=== PATIENT | male | born 1955 | race Caucasian/White ===

== ENCOUNTER 2020-09-22 09:07 | Outpatient (CLI) | payer MEDICARE, SELFPAY ==
[2020-09-22 09:32] VITALS: BMI 24.5
--- NOTE | 2020-09-22 09:36 | ECG_ITS ---
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 Interpretive Statements NAME OF STUDY: LEXISCAN SESTAMIBI STRESS TEST INDICATION: Chest Pain PROCEDURE: At the baseline, the blood pressure was 151/74 mmHg, oxygen saturation 97% with a heart rate of 54 bpm. The electrocardiogram showed sinus bradycardia with sinus arrhythmia. Leftward axis with normal ST and T's. The Lexiscan was infused over a period of 20 seconds. A total of 0.4 milligrams of Lexiscan was infused. The stress phase was continued for a total of 5 minutes. Heart rate at the end of the stress phase was 78 bpm, oxygen saturation 98% with a blood pressure of 145/72 mmHg. The EKG at the peak infusion revealed sinus rhythm with no significant ST-T wave changes. Isolated PACs noted during exercise. The study was terminated due to protocol completion. Sestamibi was injected 20 seconds after the Lexiscan infusion. Blood pressure at the end of the recovery phase was 111/64 mmHg, oxygen saturation 98% with a heart rate of 77 beats per minute. CONCLUSION: 1. No significant EKG changes with the LexiScan infusion. 2. No LexiScan induced chest pain or cardiac arrhythmia. 3. Normal blood pressure and heart rate response. 4. Sestamibi/sestamibi perfusion scan pending; see separate report. Electronically Signed On 09-24-2020 18:38:32 CDT by Michelle Graves M.D. [id number]
--- NOTE | 2020-09-22 09:36 | NMCV_ITS ---
NM akash perf SPECT r/s* [id number] Kareem Morrissey Age: 65 Gender: M : 1955 Exam Date: 09/22/2020 10:37 Ordering Phys: Michelle Graves MD ([email or web address]) Technologist: JOHN Gibson Exam Location: [facility] Indications: CHEST PAIN STRESS TEST Please see separate stress test report in [facility] for full findings IMAGE PROTOCOL Rest/Stress 1 Lexiscan Day Radiopharmaceutical Dose (mCi) Administration Site Administered by Rest: Tc-99m 11.0 IV JOHN Vaughn Sestamibi Stress:Tc-99m 32.7 IV JOHN Vaughn Sestamibi Rest: 22-Sep-2020 60 Discovery 630 Stress: 22-Sep-2020 30 Discovery 630 0.4mg Lexiscan. Images obtained in supine and prone position. SPECT RESULTS Technical Quality: Excellent Raw Data Analysis: Normal Image Corrections: No attenuation or motion correction applied Summed Stress Score: 0 Summed Rest Score: 0 Summed Difference Score: 0 PERFUSION FINDINGS Small sized perfusion abnormality of mild severity of apical inferior wall on rest images with improved tracer uptake on stress images. This is suggestive of attenuation artifact. FUNCTIONAL RESULTS (calculated via Gated SPECT) Stress Image LV EF (%): 72 Stress EDV (mL):106 TID: 1 Stress ESV (mL):30 FUNCTIONAL FINDINGS: The left ventricle is normal in size. Transient Ischemia Dilatation of 1. There is normal left ventricular systolic function. The left ventricular ejection fraction is normal with a value of 72%. There is normal left ventricular wall thickening with no regional wall motion abnormality. Normal end diastolic and end systolic volumes. IMPRESSIONS 1. Myocardial perfusion imaging is normal. 2. Overall left ventricular systolic function is normal without regional wall motion abnormalities. 3. The left ventricular ejection fraction is normal with a value of 72%. 4. No EKG changes suggetive of ischemia with lexiscan infusion. Please refer to separate report for details. 5. No prior similar studies to compare. Michelle Graves MD (Electronically Signed) Final Date: 27 September 2020 12:15 S
--- NOTE | 2020-09-22 10:42 | USCV_ITS ---
Ghanshyam, Kareem Age: 65 Gender: M : 1955 Exam Date: 09/22/2020 10:24 Ordering Phys: Michelle Graves MD Technologist: Exam Location: [facility] Indication: PVD Risk Factors: Previous Vascular Surgery: RIGHT LEFT BP: 120.0 / 80.00 BP: 120.0/ 80.00 0 0 Waveform Velocity (cm/s) Velocity (cm/s) Waveform Triphasic 70.5 Iliac Prox 60.8 Triphasic Triphasic 68.2 Iliac Mid 67.5 Triphasic Triphasic Iliac Distal Biphasic 66.8 60.8 75.7 BUS MATRON 68.2 Biphasic SFA Prox 63.1 Biphasic SFA Mid 63.1 Biphasic SFA Dist 63.1 Biphasic Monophasic 16.3 POP 34.0 Biphasic Monophasic 21.5 TORTILLA MAKER 36.6 Biphasic Monophasic 2.0 DPA 19.3 Biphasic 0.7 VAN 1.0 FINDINGS Abnormal resting VAN on the right side of 0.7 No Doppler flow signals in the superficial femoral artery on the right side Normal resting VAN on the left side CONCLUSIONS 1. Features suggesting total occlusion of the superficial femoral artery on the right side. 2. Diminished resting VAN on the right side, suggesting moderate peripheral artery disease. 3. Normal resting VAN on the left side, suggesting no significant arterial obstruction. Dr Kathi Freire MD [facility] (Electronically Signed) Final Date: 26 Sep 2020 11:58 S
--- NOTE | 2020-09-22 11:15 | SUR.PREOP ---
Patient reports no pain or discomfort prior to the start of the procedure.
[2020-09-22] MEDS: regadenoson 0.4 Mg/5 ml Syringe IVP (11:18)
[2020-09-22 11:35] VITALS: BP 129/62; PULSE 82
== END 2020-09-22 09:08 | disposition home or self-care (01) ==
LOC: RAD 09:11 → CDL 09:30
PROVIDERS: PCP Nurse Practitioner Family; Visit Provider Internal Medicine Cardiovascular Disease
DX: R07.9 Chest pain, unspecified (principal); I73.9 Peripheral vascular disease, unspecified
CPT/HCPCS: 78452; 93017; 93925; A9500; J2785

== ENCOUNTER 2020-10-18 08:40 | Outpatient (CLI) | payer MEDICARE, SELFPAY ==
--- NOTE | 2020-10-18 09:30 | CT_ITS ---
WS: [id number] CTA ABDOMINAL AORTA WITH RUNOFF TECHNIQUE: Contrast enhanced CTA of the abdominal aorta with bilateral lower extremity runoff. Multip lanar reformatted images were obtained. MIP reformats were also reviewed. CLINICAL INFORMATION: I73.9 - Peripheral vascular disease, unspecified COMPARISON: None. DLP: 1464.[address] scans at [facility] use at least one of these dose optimization techniques: automat ed exposure control; mA and/or kV adjustment per patient size (includes targeted exams where dose is matched to clinical indication); or iterative reconstruction. FINDINGS: Lung bases are well aerated. Partially visualized noncalcified subpleural nodules in the li ngula and right upper lobe. Tiny noncalcified nodule along the right lower lobe along the fissure. A few tiny subpleural nodules left lower lobe. Diffuse fatty infiltration liver. Normal portal vein and splenic vein. Normal spleen. Normal GE junction. Right adrenal adenoma measuring 13 mm. Left adrenal gland is normal. Normal renal parenchymal enhancement. No hydronephrosis. Gallbladder is contracted. Suggestion of a small enhancing polyp in the gallbladder. This could be followed up with ultrasound. Enlarged prostate measuring 4.6 cm. Normal sigmoid colon. No evidence of high-grade small or large jona wel obstruction. Fat-containing umbilical hernia. Normal caliber abdominal aorta. Tortuous abdominal aorta. No aneurysm. Celiac and SMA are patent. Pro ximal renal arteries are patent. JLUIS is patent. Disc space narrowing L3-L4 with slight retrolisthesis. RIGHT: Moderate calcified atheromatous disease common iliac artery and internal iliac artery. Externa l iliac artery is patent. Common femoral artery is patent. Superficial femoral artery is occluded at the origin. Deep femoral artery is patent. Superficial femoral artery remains occluded to the poplite al hiatus. Popliteal artery reconstitutes above the knee. Mild to moderate narrowing of the popliteal artery which remains patent. Popliteal artery remains patent to the trifurcation. Occlusion of the t ibioperoneal trunk. Single vessel anterior tibial runoff to the ankle. LEFT: Left common iliac artery is patent. Densely calcified internal iliac artery. External iliac art edward is patent. Common femoral artery is patent. Superficial femoral artery is patent. Deep femoral ar urmila is patent. Mild segmental narrowing in the superficial femoral artery which remains patent to th e adductor hiatus. Popliteal artery is patent with mild segmental narrowing. Two-vessel runoff to the ankle with posterior tibial and tiny anterior tibial arteries. CT/CT angio abd aorta runof [id number] IMPRESSION: 1. No evidence of abdominal aortic aneurysm. Mild abdominal atheromatous disea se. Tortuous abdominal aorta. 2. RIGHT superficial femoral artery is occluded at the origin and remains occl uded to the popliteal hiatus. Popliteal artery reconstitutes above the knee wit h mild to moderate segmental narrowing. Occlusion of the tibioperoneal trunk. S garland vessel anterior tibial runoff to the ankle. 3. LEFT common femoral and superficial femoral arteries are patent. Popliteal artery is patent to the trifurcation with two-vessel posterior tibial artery an d tiny amount of anterior tibial runoff. 4. Gallbladder is contracted with suggestion of a tiny gallbladder polyp, This could be followed up with ultrasound. 5. Noncalcified tiny subcentimeter nodules in the lung bases. Recommend chest CT for further evaluation. 6. Additional nonvascular findings described above.
[2020-10-18 09:50] LABS: Blood Urea Nitrogen 8 mg/dL (8-23); Glomerular Filtration Rate 112.5 mL/min (90-130)
[2020-10-18] MEDS: iohexol 350 mg/mL 100 mL Btl IV (10:09)
== END 2020-10-18 08:41 | disposition home or self-care (01) ==
PROVIDERS: PCP Nurse Practitioner Family; Visit Provider Internal Medicine Cardiovascular Disease
DX: I73.9 Peripheral vascular disease, unspecified (principal); Z01.818 Encounter for other preprocedural examination; R91.8 Other nonspecific abnormal finding of lung field; I70.8 Atherosclerosis of other arteries
CPT/HCPCS: 75635; 82565; 84520; Q9967

== ENCOUNTER 2021-07-07 11:34 | Outpatient (CLI) | payer MEDICARE, SELFPAY ==
--- NOTE | 2021-07-07 12:30 | CT_ITS ---
WS: [id number] CT NECK TECHNIQUE: Contrast-enhanced CT of the neck with coronal and sagittal reformatted images. CLINICAL INFORMATION: oral lesion COMPARISON: None. DLP: 169.[address] scans at [facility] use at least one of these dose optimization techniques: automated e xposure control; mA and/or kV adjustment per patient size (includes targeted exams where dose is matc hed to clinical indication); or iterative reconstruction. FINDINGS: Large heterogeneously enhancing bulky soft tissue mass involving the posterior nasopharynx infiltrating into the soft palate and uvula. This extends anteriorly to involve the hard palate. Post erior extension involving the RIGHT greater than LEFT parapharyngeal fat and RIGHT manager neonatal space. Loss of the fat plane in the RIGHT manager neonatal space. Enhancing disease extends into the partially vis ualized posterior inferior RIGHT maxillary sinus with cortical erosion of the posterior wall. This is only partially included on this examination. Destructive changes involving the maxilla partially vis ualized. Complete filling of the posterior nasopharynx. Posterior extension with loss of the fat plan e in the prevertebral soft tissues. Additionally, posterolaterally extension to the RIGHT condylar fo ssa with extension posterior to the RIGHT mandibular condyle. This appears also involve the RIGHT man dibular ramus and body anteriorly with soft tissue thickening. Neoplasm extends into the RIGHT pteryg opalatine fossa and sphenopalatine foramen. This extends laterally into the pterygomaxillary fissure. Extension on the RIGHT side into the inferior orbital fissure anteriorly and foramen rotundum automotive fuel injection servicer iorly. Multiple enlarged cervical lymph nodes in both cervical chains with a heterogeneously enhancing necro tic lymph node posterior to the LEFT submandibular gland measuring 1.5 x 2.0 x 2.1 cm AP by transvers e by craniocaudal. Additional smaller but enhancing pathologic lymph nodes bilaterally throughout bot h cervical chains suspicious for metastatic disease. Enhancing sublingual lymph node measuring 7 mm. Partial resection or hypoplasia of the RIGHT parotid gland. Normal LEFT parotid gland. Normal vallecu la and piriform sinuses. Normal glottis. Subglottic airway is patent. Lung apices are well aerated. Partially visualized intracranial contents appear normal. Opacification RIGHT greater than LEFT mastoid air cells. Moderate spondylitic changes cervical spine. Disc space n arrowing worse at C4-C5 C5-C6 and C6-C7. Slight anterolisthesis C6 on C7. CT/CT neck w con* [id number] IMPRESSION: 1. Large bulky heterogeneously enhancing mass compatible with neoplasm involvi ng the posterior nasopharynx extending to involve the hard and soft palate and uvula. This measures approximately 4.6 x 6.0 x 6.5 cm. 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 2. Associated invasion into the RIGHT greater than LEFT maxilla. This erodes t he posterior wall of the RIGHT maxillary sinus with invasion into the RIGHT max illary sinus. Erosion of the RIGHT greater than LEFT pterygoid plates with exte nsion into the RIGHT manager neonatal space 3. Neoplasm extends posteriorly to the RIGHT condylar fossa posterior to the m andibular condyle. Loss of the prevertebral fat plane in the prevertebral soft tissues. 4. Neoplasm extends into the RIGHT pterygopalatine fossa and sphenopalatine fo ramen. This extends laterally into the pterygomaxillary fissure. Extension suman g the inferior orbital fissure anteriorly foramen rotundum posteriorly. Expansi on of vidian canal on the RIGHT. Evidence of perineural tumor spread into the R IGHT skull base and middle cranial fossa. 5. Above findings can be further evaluated with face CT. In addition recommend staging with PET/CT. 6. Numerous bilateral bilateral metastatic lymph nodes largest in the LEFT chichi suring 1.9 x 1.5 x 2.1 cm posterior to the LEFT submandibular gland. Numerous s maller enhancing lymph nodes throughout both cervical chains. Enhancing 7 mm cruz blingual lymph node. 7. Opacification RIGHT greater than LEFT mastoid air cells.
[2021-07-07 12:33] LABS: Blood Urea Nitrogen 8 mg/dL (8-23); Glomerular Filtration Rate 112.1 mL/min (90-130)
[2021-07-07] MEDS: iohexol 300 mg/mL 100 mL Btl IV (12:41)
== END 2021-07-07 11:35 | disposition home or self-care (01) ==
PROVIDERS: PCP Nurse Practitioner Family; Visit Provider Otolaryngology
DX: K13.79 Other lesions of oral mucosa (principal); R13.10 Dysphagia, unspecified; D37.09 Neoplasm of uncertain behavior of other specified sites of the oral cavity
CPT/HCPCS: 70491; 82565; 84520

== ENCOUNTER → 2021-07-12 11:50 | Outpatient (BNVA) | payer MEDICARE, SELFPAY | PROVIDERS: PCP Nurse Practitioner Family; Visit Provider Otolaryngology | DX: K13.79 Other lesions of oral mucosa (principal); C05.1 Malignant neoplasm of soft palate | CPT/HCPCS: 42100; 88307; 88342 ==

== ENCOUNTER 2021-07-25 10:14 | Outpatient (CLI) | payer MEDICARE, SELFPAY ==
[2021-07-25 15:10] LABS: Basophils % 0.4 %; Eosinophils % 0.1 %; Hematocrit 28.7 % (42.0-52.0); Hemoglobin 9.7 g/dL (11.7-16.6); Lymphocytes # 0.8 10^3/uL (0.8-4.8); Lymphocytes % 9.2 %; Mean Corpuscular HGB Conc 33.8 g/dL (30.0-36.0); Mean Corpuscular Hemoglobin 35.1 pg (28.0-34.0); Mean Platelet Volume 9.2 fL (7.4-10.4); Monocytes % 11.7 %; Neutrophils # 6.55 10^3/uL (1.8-7.7); Neutrophils % 78.2 %; Nucleated Red Blood Cells % 0 %; Platelet Count 260 10^3/cmm (130-400); Red Blood Count 2.76 10^6/uL (4.1-5.3); Red Cell Distribution Width 14.4 % (12.1-15.1); White Blood Count 8.4 10^3/uL (4.0-10.0)
[2021-07-25 15:15] LABS: Alanine Aminotransferase < 5 U/L (0-41); Albumin Level 2.6 g/dL (3.5-5.2); Alkaline Phosphatase 74 IU/L (40-130); Anion Gap 19.7 (5-19); Aspartate Amino Transferase 9 U/L (0-40); Blood Urea Nitrogen 12 mg/dL (8-23); Calcium 9.8 mg/dL (8.5-10.5); Carbon Dioxide 28 mmol/L (22-29); Chloride 91 mmol/L (98-107); Globulin 3.3 g/dL (1.3-4.6); Glomerular Filtration Rate 112.1 mL/min (90-130); Glucose 99 mg/dL (65-115); INR 1.04 (0.8-1.2); Osmolality Calculated 280 mOsm/kg (285-295); Potassium 3.7 mmol/L (3.5-5.1); Sodium 135 mmol/L (136-145); Total Bilirubin 0.9 mg/dL (0.15-1.2); Total Protein 5.9 g/dL (6.6-8.7)
[2021-07-25 16:09] LABS: SARS Covid-2 Antigen Negative (Negative)
--- NOTE | 2021-07-25 17:10 | ONC CON_ITS ---
Dr. Meraz New Patient Note Patient: Kareem Morrissey Unit #: [id number]: [id number] Dicatated By: Mick Meraz M.D.Date of Visit: Jul 25, 2021 Onc MED New Patient/Consult Referring Physician: Dr. Ar Davila M.D. Chief Complaint: Squamous cell carcinoma of the nasopharynx. 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 On 06/21/2021 he was seen by Dr. Cook with complaints of sores in his mouth and difficulty swallowing. He was noted on exam to have an exophytic erosive lesion involving the entire soft palate extending into the posterior nasopharyngeal area. It also was noted to extend to the hard palate. His neck CT on 07/07/2021 showed a large, bulky, neoplastic appearing mass involving the posterior nasopharynx and extending to involve the hard and soft palate and uvula. The mass measured approximately 4.6 x 6.0 x 6.5 cm. It appeared to most likely be due to nasopharyngeal primary carcinoma. There was invasion into the maxillae, right greater than left, and there was associated invasion into the right maxillary sinus and into the right senior php software developer space. Neoplasm was noted to extend posteriorly to the right condylar fossa posterior to the mandibular condyle and there was loss of the paravertebral fat plane in the paravertebral soft tissues. Neoplasm was noted to extend into the right pterygopalatine fossa and sphenopalatine foramen with lateral extension into the pterygomaxillary fissure. There was extension along the inferior orbital fissure. There was noted to be expansion of the vidian canal on the right and there was evidence of perineural tumor spread into the right skull base and middle cranial fossa. Numerous bilateral metastatic lymph nodes were noted, the largest on the left measuring 1.9 x 1.5 x 2.1 cm. On 07/13/2021 he underwent punch biopsies of the palatal mass. 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 He is seen now for further management. He is having difficulty swallowing, so that his intake has been limited to juice, shakes, and sometimes broth. He has had a weight loss of 60 pounds since June 2020. He is very weak, and he complains that he has no energy. He spends most of his time lying down. ECOG score is 3. He does not have fever or night sweats. He has hearing loss, and he does report having sinus congestion with headache behind his eyes. He has shortness of breath, but he does not complain of cough or chest pain. He is not having nausea. He has a little bit of acid reflux. He has been having chronic constipation. Bladder function has been okay. He has chronic pain in his neck and back, and he also has generalized joint pain. He has pain on the right side of his face. He has episodes of lightheadedness. He has numbness/tingling which comes and goes. He bruises easily. Past Medical History: His medical history includes degenerative arthritis, degenerative disease of the spine, hypertension, and peripheral arterial disease. Past Surgical History: His prior surgeries were limited to carpal tunnel release bilaterally. Medications: amLODIPine Besylate 1 Tablet (of 2.5 mg) Oral daily, Aspirin 1 Tablet (of 81 mg) Tablet, enteric coated Oral daily, Atenolol 1 Tablet (of 50 mg) Oral b.i.d., Cilostazol 1 Tablet (of 50 mg) Oral b.i.d., Isosorbide Mononitrate ER 1 Tablet (of 30 mg) Tablet SR 24 HR Oral daily, Meloxicam 1 Tablet (of 7.5 mg) Oral b.i.d., Nitroglycerin 1 Tablet (of 0.4 mg) Tablet, sublingual Sublingual q 5 minutes PRN, Potassium Chloride Solution Oral, Potassium Chloride 15 mL (of 20 meq/15ml ) Solution Oral daily, Pravastatin Sodium 1 Tablet (of 10 mg) Oral daily, traMADol HCl 1 Tablet (of 50 mg) Oral q 6 hours PRN Allergies: No Known Allergies. Social History: Mr. Morrissey is . He had previously worked for the [employer]. He is disabled as result of a work-related injury. He has history of smoking, beginning at age 14, previously up to 2 packs of cigarettes daily. He now smokes only 1 or 2 cigarettes/day. He has had heavy alcohol use in the past. He still drinks about a 5th of bourbon per month. Family History: Both parents are . He says his father was killed. Mother apparently with heart disease. He has 2 brothers, both apparently in good health. Review Of Symptoms: Constitutional - He has no energy. His activity is very limited. He is mostly lying in bed. He has poor appetite and he has very limited oral intake. He has had a weight loss of 60 pounds since June 2020. He does not have fever or night sweats. ECOG score is 3, Eyes - No change in vision, ENMT - He has hearing loss. He has sinus congestion. He has sore mouth and throat and he has difficulty swallowing, Hematologic/Lymphatic - He bruises easily, Respiratory - He has shortness of breath. No cough. No pleuritic pain or hemoptysis, Cardiovascular - No angina pain. No palpitations, Gastrointestinal - No nausea or vomiting. He has a little bit of acid reflux. He has chronic constipation. No blood in the stool or black stools, Genitourinary (M) - No dysuria or hematuria. No urinary frequency. No urgency or incontinence, Musculoskeletal - He has chronic pain in his neck and back, and he also has generalized joint pain, Integumentary - He has dry skin, Neurologic - He has headache behind his eyes, presumed sinus related. He has pain on the right side of his face. He has lightheadedness. He has numbness/tingling which comes and goes, Psychiatric - No anxiety or depression. No insomnia. Vital Signs: Performed on Jul 25, 2021 11:54: 9, 8, 14.92 (LOW), 1.62 sq.m, 71 in, 50 /min (LOW), 15 /min, 100/62 mm(hg), 98.3 F (LOW), and 107 lbs (HIGH). Physical Examination: Constitutional - He appears generally weak and chronically ill, Eyes - Sclerae nonicteric. Conjunctivae clear, ENMT - There are advanced mucosal changes in the oral cavity involving the soft and hard palate bilaterally and the tonsillar fossae, more prominent on the left side, Neck - There is soft tissue swelling and tenderness involving the right cheek and right side of the neck, Hematologic/Lymphatic - There is a soft node palpable in the anterior cervical area on the left which measures in the range of 2 to 3 cm. There is a smaller, tender node in the right submandibular area. There is no clavicular or axillary adenopathy noted, Respiratory - Lungs are clear with diminished air movement bilaterally, Cardiovascular - Heart rhythm is regular. There is no murmur, gallop, or rub noted, Abdomen - Soft and non-tender. Liver and spleen are not enlarged. There is no abdominal mass or ascites noted and there is no inguinal adenopathy, Back/Spine - No spine or CVA tenderness noted, Extremities - No edema. I am not able to palpate pedal pulses, Integumentary - No rashes. No suspicious skin lesions noted, Neurologic - He appears generally weak, but there are no focal focal neurologic deficits noted. Problem List: 1. 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 2. He has associated weight loss and very poor performance status. 3. History of hypertension, currently with low blood pressure. 4. Peripheral arterial disease. 5. He had suspected, but apparently no documented coronary artery disease. 6. Degenerative arthritis/degenerative disease of the spine. Problems Addressed with this Encounter and Plan: Patient with moderately differentiated keratinizing squamous cell carcinoma which appears to be originating in the nasopharynx. His disease is locally very advanced. As yet there is no obvious distant metastatic disease, but he has not yet completed his staging evaluation. Thus far by clinical evaluation his disease is stage at least TAURUS (T4, N2, M0). He has very poor performance status. He has had significant weight loss, and he appears debilitated. The CT findings and images were reviewed with the patient and his family. I also reviewed the pathology results, and we discussed the clinical implications. His disease is very advanced locally and clearly inoperable. It is also advanced to the extent that we would probably have to consider some form of induction therapy prior to attempting chemoradiation. The options for treatment may vary somewhat depending on the status of the PD-L1 expression, which will now be requested on the biopsy. However, given his poor nutritional status and the extent of his debilitation, he is going to need to undergo placement of a PEG tube for nutritional support prior to considering any type of treatment. I have discussed this with Dr. Ronquillo, and I will proceed with arrangements for hospital admission for PEG tube placement and for placement of Port-A-Cath venous access device. I will have him start IV hydration here in the office today, and I will obtain baseline laboratory studies to include CBC, comprehensive metabolic profile, and a pro time. Signed By: Mick Meraz M.D. <<Signature on File>>
== END 2021-07-25 10:15 | disposition home or self-care (01) ==
PROVIDERS: Internal Medicine Medical Oncology; PCP Nurse Practitioner Family; Visit Provider Internal Medicine Hematology & Oncology
DX: C11.9 Malignant neoplasm of nasopharynx, unspecified (principal); I10 Essential (primary) hypertension; I73.9 Peripheral vascular disease, unspecified; M47.9 Spondylosis, unspecified; R63.4 Abnormal weight loss; Z79.899 Other long term (current) drug therapy
CPT/HCPCS: 80053; 85025; 85610; 87426; 96360; 99205

== ENCOUNTER 2021-07-25 14:58 | Inpatient (IN) | payer MEDICARE, SELFPAY ==
[2021-07-25 15:12] VITALS: BMI 15.0
--- NOTE | 2021-07-25 15:52 | XRR_ITS ---
PROCEDURE INFORMATION: Exam: XR Chest Exam date and time: 07/25/2021 4:23 PM Age: 66 years old Clinical indication: Shortness of breath; Additional info: SOB TECHNIQUE: Imaging protocol: XR of the chest. Views: 1 view. COMPARISON: CT neck w con* [id number] 07/07/2021 12:42 PM FINDINGS: Lungs: Unremarkable. No consolidation. Pleural spaces: Unremarkable. No pleural effusion. No pneumothorax. Heart/Mediastinum: Unremarkable. No cardiomegaly. Bones/joints: Unremarkable. XR/XR chest 1V portable [id number] IMPRESSION: No acute findings.
[2021-07-25 15:54] VITALS: BP 94/61; PULSE 73; RESP 13; TEMP 37.1
--- NOTE | 2021-07-25 15:59 | ECG_ITS ---
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 Measurements Intervals [place] Rate: 82 P: 73 [place]: 169 QRS: -49 QRSD: 75 T: 60 QT: 378 QTc: 444 Interpretive Statements SINUS RHYTHM WITH FREQUENT SUPRAVENTRICULAR PREMATURE COMPLEXES LEFT AXIS DEVIATION [QRS AXIS < -30] LOW QRS VOLTAGE IN EXTREMITY LEADS [QRS DEFLECTION < 0.5 mV IN LIMB LEADS] ST DEVIATION AND MODERATE T-WAVE ABNORMALITY, CONSIDER ANTEROLATERAL ISCHEMIA [-0.1+ mV T-WAVE IN V3-V6] No previous ECG available for comparison Electronically Signed On 07-26-2021 17:04:31 CDT by Russel Castrejon M.D. [id number]
[2021-07-25 16:00] VITALS: BP 94/61; PULSE 73; RESP 13; TEMP 37.1
--- NOTE | 2021-07-25 16:00 | P.HP_ITS ---
Providers/Chief Complaint Admitting Physician: Pantera Miramontes MD Primary Care Provider: Estela Leone Chief Complaint: head and neck cancer History of Present Illness Kareem Morrissey is a 66 year old male with a past medical history of CAD, no history of stenting, but tells me he has had heart attacks, history of COPD, history of CVA, history of hypertension, history of peripheral arterial disease, history of bradycardia, who presents to [facility] due to weakness fatigue, dehydration concerns. Patient was recently seen by Dr. 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 Patient was seen Dr. Meraz plans for chemo immunotherapy, however due to concern for poor oral intake, dehydration he was sent over to [facility] for further evaluation. Patient tells me that since his teeth was pulled in April his oral lesion was discovered he has had a rapid decline, he has lost a lot of weight, is not able to quantify how much, he has had weakness fatigue, malaise. He also tells me that he has a chronic cough, he does smoke, but has been worsening recently, he feels that whenever he eats stuck in his throat, no choking episode, no aspiration episodes. Has had a fall about 2 weeks ago, is unsteady on his feet, does have episodes of dizziness Review of Systems Const: Denies: fever(s) Eyes: Denies: change in vision ENMT: Denies: nasal congestion Resp: Denies: dyspnea or wheezing GI: Denies: abdominal pain, nausea, vomiting, diarrhea or constipation : Denies: flank pain, difficulty urinating, dysuria or urinary frequency Skin/Breast: Denies: rash Neuro: Denies: headache(s) or vertigo Medications/Allergies Home Medications Medication Instructions Recorded Confirmed Last Taken Type aspirin 81 mg tablet,delayed 81 mg PO DAILY 07/14/20 07/12/21 Unknown History release atenolol 25 mg tablet 50 mg PO BID tab 07/14/20 07/12/21 Unknown History isosorbide mononitrate 30 mg 30 mg PO DAILY 07/14/20 07/12/21 Unknown History tablet,extended release 24 hr meloxicam 7.5 mg tablet 7.5 mg PO BID tab 07/14/20 07/12/21 Unknown History nitroglycerin 0.4 mg sublingual 0.4 mg SUBLINGUAL Q5M PRN #30 tab 07/14/20 07/12/21 Unknown Rx tablet tramadol 50 mg tablet 50 mg PO Q6H PRN 07/14/20 07/12/21 Unknown History cilostazol 50 mg tablet 50 mg PO BID #180 tab 02/27/21 07/12/21 Unknown Rx pravastatin 10 mg tablet 10 mg PO DAILY #90 tab 02/27/21 07/12/21 Unknown Rx amlodipine 2.5 mg tablet 2.5 mg PO DAILY #90 tab 04/05/21 07/12/21 Unknown Rx Allergies Allergy/AdvReac Type Severity Reaction Status Date / Time No Known Allergies Allergy Unverified 07/12/21 11:43 PFSH Acute PFSH: Medical History CAD (coronary artery disease) COPD (chronic obstructive pulmonary disease) CVA (cerebral vascular accident) Hypertension Peripheral arterial disease Surgical History H/O carpal tunnel repair Family History Mother Old age Father Accidental Other Unknown family medical history Social History Smoking and tobacco status: current every day smoker (1-3 cigs) cigarettes [ Other cigarette details: 1-3 cig a day] Alcohol intake: current Alcohol intake frequency: 0-2 Drinks per Day Alcohol type: hard liquor Desire information about substance/drug rehabilitation?: No Counseling given: No Vitals/I&O/Wt Weight last 48 hrs Weight 47.4 kg Physical Exam Const: COMMON NORMALS: no acute distress and patient oriented x3 GENERAL APPEARANCE: frail appearing NUTRITIONAL APPEARANCE: cachectic and thin HENMT: COMMON NORMALS: normocephalic HEAD & SCALP: normocephalic Resp: COMMON NORMALS: normal respiratory effort, No retractions, No use of accessory muscles and clear to auscultation bilaterally AUSCULTATION: clear to auscultation bilaterally Cardio: COMMON NORMALS: regular rate, regular rhythm, S1 normal heart sound present and S2 normal heart sound present RATE: regular rate RHYTHM: regular rhythm HEART SOUNDS: S1 normal heart sound present and S2 normal heart sound present GI: COMMON NORMALS: Normal to inspection, nondistended, normoactive bowel sounds present, Soft to palpation, non-tender, No hepatosplenomegaly present, no masses and no bruits PALPATION: Yes Soft to palpation Extremity: COMMON NORMALS: capillary refill normal, no calf tenderness and no pedal edema Neuro: COMMON NORMALS: patient oriented x3 Psych: COMMON NORMALS: mental status grossly normal A&P Assessment and plan (1) Dysphagia: Status: Acute (2) Fatigue: Status: Acute Qualifiers: Fatigue type: unspecified Qualified Code(s): R53.83 - Other fatigue (3) Malignant neoplasm nasopharynx: Status: Acute (4) Falls: Status: Acute (5) Acute anemia: Status: Acute (6) Protein calorie malnutrition: Status: Acute (7) Physical deconditioning: Status: Acute Plan 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 Large bulky heterogeneously enhancing mass compatible with neoplasm involving the posterior nasopharynx extending to involve the hard and soft palate and uvula. This measures approximately 4.6 x 6.0 x 6.5 cm. Findings likely due to nasopharyngeal carcinoma. 2.? Associated invasion into the RIGHT greater than LEFT maxilla. This erodes the posterior wall of the RIGHT maxillary sinus with invasion into the RIGHT maxillary sinus. Erosion of the RIGHT greater than LEFT pterygoid plates with extension into the RIGHT chief drafter space 3.? Neoplasm extends posteriorly to the RIGHT condylar fossa posterior to the mandibular condyle. Loss of the prevertebral fat plane in the prevertebral soft tissues. 4.? Neoplasm extends into the RIGHT pterygopalatine fossa and sphenopalatine foramen. This extends laterally into the pterygomaxillary fissure. Extension along the inferior orbital fissure anteriorly foramen rotundum posteriorly. Expansion of vidian canal on the RIGHT. 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 5.? Above findings can be further evaluated with face CT. In addition recommend staging with PET/CT. 6.? Numerous bilateral bilateral metastatic lymph nodes largest in the LEFT measuring 1.9 x 1.5 x 2.1 cm posterior to the LEFT submandibular gland. Numerous smaller enhancing lymph nodes throughout both cervical chains. Enhancing 7 mm sublingual lymph node. 7.? Opacification RIGHT greater than LEFT mastoid air cells. Plan; -We will have port placement -We will have PEG tube placement -D5 normal saline -Currently n.p.o., until speech therapy evaluates patient -N.p.o. over midnight for possible surgical invention tomorrow morning -Full code -SCDs for DVT prophylaxis, Lovenox relatively contraindicated given anemia Dysphagia -Has nasopharyngeal carcinoma as above -Concerns for aspiration Plan -We will do chest x-ray -Have speech therapy evaluate patient, n.p.o. until he is seen, can have his moist cotton swabs -Aspiration precautions Poor appetite, weight loss, nasopharyngeal cancer -Discussed risks and benefits of PEG tube placement, agreeable to proceed ? Acute anemia -Baseline hemoglobin unknown, no history of GI bleeds, no history of blood transfusions -Iron studies, B12 folate -Stool Hemoccult -Protonix, Carafate -Monitor hemodynamics to monitor for bloody or black stools History of alcohol consumption, CIWA score, thiamine, banana bag Protein calorie malnutrition, consult nutrition Physical deconditioning, PT OT Attestations Medical Necessity Statement*: Patient requires hospitalization, inpatient, for dehydration, metastatic squamous cell carcinoma, falls, anemia, will require port placement, will require PEG tube placement Coding Level of Care Code Acute 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
[2021-07-25] MEDS: folic acid 1 MG, multivitamin inj 10 ML, thiamine 100 MG in sodium chloride 0.9% 1,000 ML 252.8 MG IV (16:36)
[2021-07-25 16:46] LABS: INR 1.05 (0.8-1.2)
[2021-07-25 16:55] LABS: Ferritin 549 ng/mL (30-400); Iron 24 ug/dL (59-158); Percent Saturation 28.2 % (20-50); Phosphorus 3.1 mg/dL (2.5-4.5); Total Iron Binding Capacity 85 mcg/dl; Unsaturated Iron Binding 61 ug/dL (112-347)
[2021-07-25 17:02] VITALS: O2SAT 95
[2021-07-25 17:11] LABS: Vitamin B12 1035 pg/mL (232-1245)
[2021-07-25 18:07] LABS: Folate Level 2.7 ng/mL (4.5-32.2)
[2021-07-25 18:09] LABS: NT Pro B Type Natriuretic Pept 868 pg/mL (0-125); Procalcitonin 0.07 ng/mL (0-0.5); Thyroid Stimulating Hormone 2.67 uIU/mL (0.27-4.20)
[2021-07-25 18:19] LABS: Magnesium 1.1 mg/dL (1.7-2.3)
[2021-07-25 18:20] LABS: Alcohol Level < 10 mg/dL (0-10)
[2021-07-25 19:06] LABS: Estmated Average Glucose 59; Hemoglobin A1C 3.7 % (4.0-6.0)
[2021-07-25 20:00] VITALS: BP 81/49; PULSE 77; RESP 16; TEMP 36.6; O2SAT 94
[2021-07-25] MEDS: magnesium sulfate premix 4 GM/100 ML PREMIX IV (20:32)
[2021-07-25] MEDS: pantoprazole 40 mg SDV IVP (20:33)
[2021-07-25 22:00] VITALS: PULSE 58
[2021-07-25 22:32] LABS: Cortisol Random 16.78 ug/dL (2.47-19.5)
[2021-07-25] MEDS: lactated ringers 500 ML 999 ML IV (22:49)
[2021-07-25] MEDS: dextrose 5%-sod chloride 0.9% 1,000 ML 125 ML IV (23:31)
[2021-07-26] VITALS (15 sets, daily range): BP systolic 84–119; BP diastolic 58–76; PULSE 54–83; RESP 15–20; TEMP 36.1–37.5; O2SAT 92–98
--- NOTE | 2021-07-26 | SCC_ITS ---
Procedure done: 1. Placement of PowerPort in the right internal jugular vein 2. Fluoroscopic guidance and interpretation for placement of catheter 3. Ultrasound guidance to access the right internal jugular vein 4. Percutaneous endoscopic placement of 20 [employer] Endovive gastrostomy tube 22 seconds of fluoroscopic guidance, for a cumulative dose of 3.77 mGy, was provided to Dr. Ronquillo by the radiology department. C-arm images of the chest were saved for the patient's permanent record. JAZLYND
--- NOTE | 2021-07-26 | SC_ITS ---
WS: [id number] Exam: C-arm FL for CVA [id number] Date/Time of Exam: 07/26/2021 12:00 AM Reason For Exam: JOSE C PICS Single AP C-arm image of the upper right chest submitted for evaluation. A right subclavian central line is been placed and appears to end in the lower one third of the SVC. No obvious pneumothorax.
--- NOTE | 2021-07-26 01:24 | W.PM.EVENTAC ---
Event Note Event Note: Blood pressures noted soft since admission, but slightly worse this evening, 81/49. Given a bolus of LR 500 mL, Imdur held for now. Requested cortisol level. Blood pressure slightly better after bolus, 94/62, but still soft, 84/59. On assessment he is sleeping, wakes up easily to voice, denies any discomfort. Is not having chest pain or pressure. No lightheadedness. Not short of breath. Reports that he gets lightheaded at home when standing up. He is thin, appears malnourished, with dry skin with loss of turgor. No JVD. No auscultation no crackles. For now hold continuous infusion and will repeat additional 500 mL LR bolus. In case blood pressure still dropping down further may consider albumin. Cortisol level returned at 16.78, start hydrocortisone.
[2021-07-26] MEDS: lactated ringers 500 ML 999 ML IV (01:46)
[2021-07-26] MEDS: hydrocortisone 100 mg/2 mL SDV IVP (01:46)
[2021-07-26 05:15] LABS: Basophils % 0.3 %; Hemoglobin 9.2 g/dL (11.7-16.6); Lymphocytes # 0.4 10^3/uL (0.8-4.8); Lymphocytes % 6.2 %; Mean Corpuscular HGB Conc 32.9 g/dL (30.0-36.0); Mean Corpuscular Hemoglobin 35.4 pg (28.0-34.0); Mean Corpuscular Volume 107.7 fl (80-94); Mean Platelet Volume 8.9 fL (7.4-10.4); Monocytes # 0.4 10^3/uL (0.2-0.9); Monocytes % 6.2 %; Nucleated Red Blood Cells % 0 %; Platelet Count 208 10^3/cmm (130-400); Red Cell Distribution Width 14.6 % (12.1-15.1); White Blood Count 6.4 10^3/uL (4.0-10.0)
[2021-07-26 05:47] LABS: Alanine Aminotransferase < 5 U/L (0-41); Albumin Level 2.4 g/dL (3.5-5.2); Alkaline Phosphatase 71 IU/L (40-130); Anion Gap 18.5 (5-19); Aspartate Amino Transferase 8 U/L (0-40); Blood Urea Nitrogen 9 mg/dL (8-23); Calcium 9.4 mg/dL (8.5-10.5); Carbon Dioxide 25 mmol/L (22-29); Chloride 94 mmol/L (98-107); Globulin 2.9 g/dL (1.3-4.6); Glucose 86 mg/dL (65-115); Magnesium 1.9 mg/dL (1.7-2.3); Osmolality Calculated 276 mOsm/kg (285-295); Phosphorus 2.4 mg/dL (2.5-4.5); Potassium 3.5 mmol/L (3.5-5.1); Sodium 134 mmol/L (136-145); Total Bilirubin 0.6 mg/dL (0.15-1.2); Total Protein 5.3 g/dL (6.6-8.7)
[2021-07-26 06:28] LABS: Thyroid Stimulating Hormone 1.87 uIU/mL (0.27-4.20)
[2021-07-26] MEDS: sodium chloride 0.9% 1,000 ML 30 ML IV (11:21)
--- NOTE | 2021-07-26 11:24 | PM.CONSULT ---
Providers/Reason For Consult Consulting Physician/Specialty*: Dr. Goldstein Reason for Consult*: PEG and port placement Attending Physician: Byron Angelo MD Primary Care Provider: Estela Leone History of Present Illness History of Present Illness Kareem Morrissey is a 66 year old male diagnosed recently with squamous cell carcinoma likely from the nasopharynx. Patient has been unable to take much by mouth and appears to be aspirating. He denies any chest pain or abdominal pain. No prior history of clavicle fracture or central line placement. Patient needs a PEG tube and central venous access for chemotherapy Medications/Allergies Home Medications Medication Instructions Recorded Confirmed Last Taken Type aspirin 81 mg tablet,delayed 81 mg PO DAILY 07/14/20 07/25/21 1 Day Ago History release ~07/24/21 atenolol 25 mg tablet 50 mg PO BID tab 07/14/20 07/25/21 1 Day Ago History ~07/24/21 isosorbide mononitrate 30 mg 30 mg PO DAILY 07/14/20 07/25/21 1 Day Ago History tablet,extended release 24 hr ~07/24/21 meloxicam 7.5 mg tablet 7.5 mg PO BID tab 07/14/20 07/25/21 1 Day Ago History ~07/24/21 nitroglycerin 0.4 mg sublingual 0.4 mg SUBLINGUAL Q5M PRN #30 tab 07/14/20 07/25/21 Unknown Rx tablet tramadol 50 mg tablet 50 mg PO Q6H PRN 07/14/20 07/25/21 1 Day Ago History ~07/24/21 cilostazol 50 mg tablet 50 mg PO BID #180 tab 02/27/21 07/25/21 1 Day Ago Rx ~07/24/21 pravastatin 10 mg tablet 10 mg PO DAILY #90 tab 02/27/21 07/25/21 1 Day Ago Rx ~07/24/21 amlodipine 2.5 mg tablet 2.5 mg PO DAILY #90 tab 04/05/21 07/25/21 1 Day Ago Rx ~07/24/21 Allergies Allergy/AdvReac Type Severity Reaction Status Date / Time No Known Allergies Allergy Unverified 07/12/21 11:43 Current Medications Generic Name Dose Route Start Last Admin Trade Name Freq PRN Reason Stop Dose Admin Cilostazol 50 mg 07/25/21 18:00 07/25/21 17:36 Cilostazol 100 Mg Tablet PO Not Given BID RENETTA Hydrocortisone Sodium Succinate 100 mg 07/26/21 01:15 07/26/21 01:46 Hydrocortisone 100 Mg/2 Ml Sdv IVP 100 mg Q12H RENETTA Administration Dextrose/Sodium Chloride 1,000 mls @ 125 mls/hr 07/25/21 16:00 07/25/21 23:31 Dextrose 5%-Sod Chloride 0.9% IV 125 mls/hr .Q8H RENETTA Administration Pantoprazole Sodium 40 mg 07/25/21 16:00 07/25/21 20:33 Pantoprazole 40 Mg Sdv IVP 40 mg Q24H RENETTA Administration Sucralfate 1 gm 07/25/21 17:00 07/26/21 06:14 Sucralfate 1 Gm Tablet PO Not Given AC&BEDTIME RENETTA PFSH Acute PFSH: Medical History CAD (coronary artery disease) COPD (chronic obstructive pulmonary disease) CVA (cerebral vascular accident) Hypertension Peripheral arterial disease Surgical History H/O carpal tunnel repair Family History Mother Old age Father Accidental Other Unknown family medical history Social History Smoking and tobacco status: current every day smoker (1-3 cigs) cigarettes [ Other cigarette details: 1-3 cig a day] Alcohol intake: current Alcohol intake frequency: 0-2 Drinks per Day Alcohol type: hard liquor Desire information about substance/drug rehabilitation?: No Counseling given: No Vitals/I&O/Wt Last Vital Signs Temp 97.5 F L 07/26/21 11:19 Pulse 81 07/26/21 11:19 Resp 16 07/26/21 11:19 BP 88/59 07/26/21 11:19 Pulse Ox 97 07/26/21 11:19 07/25/21 07/26/21 07/26/21 22:59 06:59 14:59 Intake Total 1050 / 1050 Output Total 400 / 400 Balance 650 / 650 Weight last 48 hrs Weight 104 lb 8 oz Physical Exam Narrative: HEENT: Normocephalic Eye: Sclera /conjunctiva normal Respiratory and chest: Bilateral clear breath sounds on auscultation Cardiovascular: Normal S1 and S2 heart sounds Abdomen: Soft to palpation Neurological: Oriented to place person and time Skin: Intact, no lesions appreciated on gross exam Urinary Catheter Management: Kirk: Cath Placed During This Visit: yes Urinary Catheter Date of Insertion: 07/26/21 Urinary Catheter Time of Insertion: 06:05 Data : 07/26/21 04:27 07/26/21 04:27 A&P Assessment and plan (1) Protein calorie malnutrition: 60-year-old male with stage IV nasopharyngeal CA who has dysphagia. Plan for PEG tube placement under MAC today Procedure, risks, benefits and alternatives have been discussed with the patient who wishes to proceed with surgery. 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 Status: Acute Coding Level of Care Code Acute [employer] Tm1 Developer for Chg Fwd Diagnoses Protein calorie malnutrition E46 Dysphagia R13.10
--- NOTE | 2021-07-26 11:59 | ANES.PREANE2 ---
Pre-Anesthetic Assessment Height/Weight: Height 1.78 m Weight 47.4 kg Temp Pulse Resp BP Pulse Ox 97.5 F L 81 16 88/59 97 07/26/21 11:19 07/26/21 11:19 07/26/21 11:19 07/26/21 11:19 07/26/21 11:19 Preop Diagnosis: Oropharyngeal cancer Operation Date: 07/26/21 11:55 Proposed Procedures p Portacath Placement Insertion Portacath(Not Applicable) - Jose Ronquillo MD s PEG Tube Exchange(Not Applicable) - Jose Ronquillo MD Familial anesthetic complications: None Was Beta Wanda taken within 24 hours: N/A (Carvedilol last 07/24/21) Was Clonidine taken within 24 hours: N/A Last intake: Intake Last Liquid Date 07/25/21 Last Liquid Time 16:00 Social Tobacco Exam alert, oriented x 3 and regular rate & rhythm B/L wheezing Airway Submandibular: within normal limits Cervical ROM: Other (Limited) Mallampati: Class I Dentition: false Pulmonary Exertional Dyspnea CV/HEM Anemia, Coronary Artery Disease, Hypertension and Peripheral Vascular Disease EKG 06/2021 ?Interpretive Statements SINUS RHYTHM WITH FREQUENT SUPRAVENTRICULAR PREMATURE COMPLEXES LEFT AXIS DEVIATION? [QRS AXIS < -30] LOW QRS VOLTAGE IN EXTREMITY LEADS? [QRS DEFLECTION < 0.5 mV IN LIMB LEADS] ST DEVIATION AND MODERATE T-WAVE ABNORMALITY, CONSIDER ANTEROLATERAL ISCHEMIA ?[-0.1+ mV T-WAVE IN V3-V6] No previous ECG available for comparison [email or web address] Vascular disease CTA 08/2020 CONCLUSIONS ?1. Features suggesting total occlusion of the superficial ?femoral artery on the right side. ?2.? Diminished resting VAN on the right side, suggesting ?moderate peripheral artery disease. ?3.? Normal resting VAN on the left side, suggesting no ?significant arterial obstruction. Nuclear Med Scan 08/2020 IMPRESSIONS ?1. Myocardial perfusion imaging is normal. ?2. Overall left ventricular systolic function is normal without regional wall ?motion abnormalities. ?3. The left ventricular ejection fraction is normal with a value of 72%. ?4. No EKG changes suggetive of ischemia with lexiscan infusion. Please refer to ?separate report for details. ?5. No prior similar studies to compare. Hyponatremia Hepatic None reported GI None reported Metabolic None reported Musc/skel None reported Neuropsych None reported Anesthetic Plan ASA status: 3 Anesthesia: Anesthesia Evaluation Other: I discussed with the patient risks, goals, and benefits of MAC and general anesthesia. We discussed spectrum of MAC anesthesia including conversion to general as well as possibility of recall of intraoperative stimuli including discomfort/pain. Patient agrees to proceed with MAC. Plan light anesthetic as patient is at risk for airway obstruction, if necessary will convert to general with secrued airway. Risk of > 500 ml blood loss (7ml/kg in children): No Other Pertinent Information Nasopharyngeal mass CT results 10/18/20 CT/CT neck w con* [id number] IMPRESSION: ? 1.? Large bulky heterogeneously enhancing mass compatible with neoplasm involving the posterior nasopharynx extending to involve the hard and soft palate and uvula. This measures approximately 4.6 x 6.0 x 6.5 cm. Findings likely due to nasopharyngeal carcinoma. 2.? Associated invasion into the RIGHT greater than LEFT maxilla. This erodes the posterior wall of the RIGHT maxillary sinus with invasion into the RIGHT maxillary sinus. Erosion of the RIGHT greater than LEFT pterygoid plates with extension into the RIGHT peripheral equipment operator space 3.? Neoplasm extends posteriorly to the RIGHT condylar fossa posterior to the mandibular condyle. Loss of the prevertebral fat plane in the prevertebral soft tissues. 4.? Neoplasm extends into the RIGHT pterygopalatine fossa and sphenopalatine foramen. This extends laterally into the pterygomaxillary fissure. Extension along the inferior orbital fissure anteriorly foramen rotundum posteriorly. Expansion of vidian canal on the RIGHT. 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 5.? Above findings can be further evaluated with face CT. In addition recommend staging with PET/CT. 6.? Numerous bilateral bilateral metastatic lymph nodes largest in the LEFT measuring 1.9 x 1.5 x 2.1 cm posterior to the LEFT submandibular gland. Numerous smaller enhancing lymph nodes throughout both cervical chains. Enhancing 7 mm sublingual lymph node. 7.? Opacification RIGHT greater than LEFT mastoid air cells. Medications/Allergies Home Medications Medication Instructions Recorded Confirmed Last Taken Type aspirin 81 mg tablet,delayed 81 mg PO DAILY 07/14/20 07/25/21 1 Day Ago History release ~07/24/21 atenolol 25 mg tablet 50 mg PO BID tab 07/14/20 07/25/21 1 Day Ago History ~07/24/21 isosorbide mononitrate 30 mg 30 mg PO DAILY 07/14/20 07/25/21 1 Day Ago History tablet,extended release 24 hr ~07/24/21 meloxicam 7.5 mg tablet 7.5 mg PO BID tab 07/14/20 07/25/21 1 Day Ago History ~07/24/21 nitroglycerin 0.4 mg sublingual 0.4 mg SUBLINGUAL Q5M PRN #30 tab 07/14/20 07/25/21 Unknown Rx tablet tramadol 50 mg tablet 50 mg PO Q6H PRN 07/14/20 07/25/21 1 Day Ago History ~07/24/21 cilostazol 50 mg tablet 50 mg PO BID #180 tab 02/27/21 07/25/21 1 Day Ago Rx ~07/24/21 pravastatin 10 mg tablet 10 mg PO DAILY #90 tab 02/27/21 07/25/21 1 Day Ago Rx ~07/24/21 amlodipine 2.5 mg tablet 2.5 mg PO DAILY #90 tab 04/05/21 07/25/21 1 Day Ago Rx ~07/24/21 Allergies Allergy/AdvReac Type Severity Reaction Status Date / Time No Known Allergies Allergy Unverified 07/12/21 11:43 Current Medications Generic Name Dose Route Start Last Admin Trade Name Freq PRN Reason Stop Dose Admin Cilostazol 50 mg 07/25/21 18:00 07/25/21 17:36 Cilostazol 100 Mg Tablet PO Not Given BID RENETTA Hydrocortisone Sodium Succinate 100 mg 07/26/21 01:15 07/26/21 01:46 Hydrocortisone 100 Mg/2 Ml Sdv IVP 100 mg Q12H RENETTA Administration Dextrose/Sodium Chloride 1,000 mls @ 125 mls/hr 07/25/21 16:00 07/25/21 23:31 Dextrose 5%-Sod Chloride 0.9% IV 125 mls/hr .Q8H RENETTA Administration Sodium Chloride 1,000 mls @ 30 mls/hr 07/26/21 11:30 07/26/21 11:21 Sodium Chloride 0.9% IV 07/27/21 11:29 30 mls/hr .Q24H RENETTA Administration Pantoprazole Sodium 40 mg 07/25/21 16:00 07/25/21 20:33 Pantoprazole 40 Mg Sdv IVP 40 mg Q24H RENETTA Administration Sucralfate 1 gm 07/25/21 17:00 07/26/21 06:14 Sucralfate 1 Gm Tablet PO Not Given AC&BEDTIME RENETTA PFSH Anesthesia Medical History CAD (coronary artery disease) COPD (chronic obstructive pulmonary disease) CVA (cerebral vascular accident) Hypertension Peripheral arterial disease Surgical History H/O carpal tunnel repair Family History Mother Old age Father Accidental Other Unknown family medical history Social History Smoking and tobacco status: current every day smoker (1-3 cigs) cigarettes [ Other cigarette details: 1-3 cig a day] Alcohol intake: current Alcohol intake frequency: 0-2 Drinks per Day Alcohol type: hard liquor Desire information about substance/drug rehabilitation?: No Counseling given: No Data Anesthesia : 07/26/21 04:27 07/26/21 04:27 Short CBC 07/26/21 Range/Units 04:27 WBC 6.4 (4.0-10.0) 10^3/uL Hgb 9.2 L (11.7-16.6) g/dL Hct 28.0 L (42.0-52.0) % MCV 107.7 H (80-94) fl Plt Count 208 (130-400) 10^3/cmm Neut % (Auto) 87.0 % Neut # (Auto) 5.60 (1.8-7.7) 10^3/uL BMP 07/26/21 04:27 Sodium 134 L Potassium 3.5 Chloride 94 L Carbon Dioxide 25 BUN 9 Creatinine 0.6 L Glucose 86 Calcium 9.4 Cardiac Enzymes 07/25/21 Range/Units 16:22 NT-Pro-B Natriuret Pep 868 H (0-125) pg/mL Liver Function 07/26/21 Range/Units 04:27 Total Bilirubin 0.6 (0.15-1.2) mg/dL AST 8 (0-40) U/L ALT < 5 (0-41) U/L Alkaline Phosphatase 71 (40-130) IU/L Albumin 2.4 L (3.5-5.2) g/dL Coags 07/25/21 16:22 PT 14.00 INR 1.05 Cardiac Studies: Sestamibi Stress Test (Cardiology) 09/22/20
--- NOTE | 2021-07-26 12:28 | PC.CHAP ---
Pastoral Care Encounter/Spiritual Assessment Type of Contact [] Declined chef kitchen manager visit [] Patient/Family/Request visit [] Outpatient visit [] Follow-up visit [] Physician referral [] Code/Alert [x] Routine visit [] Staff referral [] Actively dying [] Patient sleeping [] Family support [] [] Out of room [] Palliative care [] [] Receiving care in room [] Pre-surgical visit [] Trauma [] Long length of stay [] ICU visit [] Other: Relational/Emotional Strength [x] Patient feels connected with others/family/visitors/staff [] Distress [] Loneliness/isolation [] Abandonment Spirituality of Patient [x] Person of Imani [] Attends Anabaptism of their [place] [x] Believes in Prayer [] Reads Bible or Cheondoism materials [] There are Spiritual issues to be addressed Secretary Administrative Assistant Interventions [x] Prayer [] Active listening x [] Non-anxious presence [] Spiritual/emotional support [] Crisis/trauma care [] Spiritual counseling [] Bereavement support [] Provided bereavement packet [] Provided Bible/devotional materials [] Provided toy/stuffed animal, coloring book to patient or family member [] Provided Communion [] Anointing/[place] [] Salvation x] Completed spiritual assessment [] Other: Impact on Illness or Injury [] Angry [] Fearful [] Anxious [] Often cries [] Exhaustion [] Unable to work [] Unable to attend anabaptism [] Unable to walk/stand [] Unable to read [] Unable to drive [] Unable to eat/drink [] Unable to sleep [] Unable to be with family [] Patient intubated [] Other: Summary Time spent with patient 5 min
--- NOTE | 2021-07-26 12:58 | PM.PN ---
Subjective Subjective: patient was seen this morning, npo, awaiting surgery, he is hungry, he denies lightheadedness and dizzyness, no chest pain Vitals/I&O/Wt Last Vital Signs Temp 97.5 F L 07/26/21 11:19 Pulse 81 07/26/21 11:19 Resp 16 07/26/21 11:19 BP 88/59 07/26/21 11:19 Pulse Ox 97 07/26/21 11:19 07/25/21 07/26/21 07/26/21 22:59 06:59 14:59 Intake Total 1050 / 1050 Output Total 400 / 400 Balance 650 / 650 Weight last 48 hrs Weight 47.4 kg Physical Exam Const: COMMON NORMALS: no acute distress and patient oriented x3 NUTRITIONAL APPEARANCE: cachectic and thin Resp: COMMON NORMALS: normal respiratory effort, No retractions, No use of accessory muscles and clear to auscultation bilaterally AUSCULTATION: clear to auscultation bilaterally Cardio: COMMON NORMALS: regular rate, regular rhythm, S1 normal heart sound present and S2 normal heart sound present RATE: regular rate RHYTHM: regular rhythm HEART SOUNDS: S1 normal heart sound present and S2 normal heart sound present GI: COMMON NORMALS: Normal to inspection, nondistended, normoactive bowel sounds present, Soft to palpation and non-tender PALPATION: Yes Soft to palpation Extremity: COMMON NORMALS: no pedal edema Neuro: COMMON NORMALS: patient oriented x3 Psych: COMMON NORMALS: mental status grossly normal Urinary Catheter Management: Kirk: Cath Placed During This Visit: yes Urinary Catheter Date of Insertion: 07/26/21 Urinary Catheter Time of Insertion: 06:05 Data : 07/26/21 04:27 07/26/21 04:27 A&P Assessment and plan (1) Dysphagia: Status: Acute (2) Fatigue: Status: Acute Qualifiers: Fatigue type: unspecified Qualified Code(s): R53.83 - Other fatigue (3) Malignant neoplasm nasopharynx: Status: Acute (4) Falls: Status: Acute (5) Acute anemia: Status: Acute (6) Protein calorie malnutrition: Status: Acute (7) Physical deconditioning: Status: Acute Plan 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 Large bulky heterogeneously enhancing mass compatible with neoplasm involving the posterior nasopharynx extending to involve the hard and soft palate and uvula. This measures approximately 4.6 x 6.0 x 6.5 cm. Findings likely due to nasopharyngeal carcinoma. 2.? Associated invasion into the RIGHT greater than LEFT maxilla. This erodes the posterior wall of the RIGHT maxillary sinus with invasion into the RIGHT maxillary sinus. 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 Neoplasm extends posteriorly to the RIGHT condylar fossa posterior to the mandibular condyle. Loss of the prevertebral fat plane in the prevertebral soft tissues. 4.? Neoplasm extends into the RIGHT pterygopalatine fossa and sphenopalatine foramen. This extends laterally into the pterygomaxillary fissure. Extension along the inferior orbital fissure anteriorly foramen rotundum posteriorly. Expansion of vidian canal on the RIGHT. 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 5.? Above findings can be further evaluated with face CT. In addition recommend staging with PET/CT. 6.? Numerous bilateral bilateral metastatic lymph nodes largest in the LEFT measuring 1.9 x 1.5 x 2.1 cm posterior to the LEFT submandibular gland. Numerous smaller enhancing lymph nodes throughout both cervical chains. Enhancing 7 mm sublingual lymph node. 7.? Opacification RIGHT greater than LEFT mastoid air cells. Plan; -will have port placement -will have PEG tube placement -D5 normal saline -clear liquid diet -Full code -SCDs for DVT prophylaxis, Lovenox relatively contraindicated given anemia Dysphagia -Has nasopharyngeal carcinoma as above -Concerns for aspiration Plan -chest x-ray nos aspiration -Have speech therapy evaluate patient,clears, -Aspiration precautions Poor appetite, weight loss, nasopharyngeal cancer -Discussed risks and benefits of PEG tube placement, agreeable to proceed ? Acute anemia -combination of iron deficiency and folate deficiency -Baseline hemoglobin unknown, no history of GI bleeds, no history of blood transfusions -folate and iron defecient -Stool Hemoccult -Protonix, Carafate -Monitor hemodynamics to monitor for bloody or black stools Hypotension -given stress dose steroid -getting fluids -will add midodrine -likely secondary to dehydration, low body mass History of alcohol consumption, CIWA score, thiamine, banana bag Protein calorie malnutrition, consult nutrition Physical deconditioning, PT OT Attestations Medical Necessity Statement*: patient requires hospitalzation for acuet anemia, dysphasia, protein calorie malnutrition Coding Level of Care Code Acute Engineer First Assistant for Chg Fwd Diagnoses Dysphagia R13.10 Fatigue R53.83 Fatigue type: unspecified Malignant neoplasm nasopharynx C11.9 Falls W19.XXXA Acute anemia D64.9 Protein calorie malnutrition E46 Physical deconditioning R53.81
[2021-07-26] MEDS: heparin, porcine 1,000 unit/mL INJ 10 mL 10000 UNIT IRRIGATION (13:20)
[2021-07-26] MEDS: lidocaine 1% INJ 20 mL INJECTION (13:23)
--- NOTE | 2021-07-26 14:59 | PM.OP ---
Operative Report Date of procedure: July 26, 2021 Pre-op diagnosis: Oropharyngeal cancer Protein calorie malnutrition Post-op diagnosis: same Procedure done: 1. Placement of PowerPort in the right internal jugular vein 2. Fluoroscopic guidance and interpretation for placement of catheter 3. Ultrasound guidance to access the right internal jugular vein 4. Percutaneous endoscopic placement of 20 [place] [employer] Endovive gastrostomy tube Pathology: none sent Surgeon: Jose Ronquillo Anesthesia: MAC Condition: stable Disposition: PACU Procedure: The patient was taken to the Operating Room and the chest and neck bilaterally were prepped and draped in a sterile manner after the antibiotic had been administered and shoulder rolls had been placed. 1% lidocaine with 0.5% Marcaine was infiltrated at the side at the site of the planned entry.. An ultrasound of the right internal jugular vein revealed patent flow, no thrombus. An introducer needle was then used to access the right internal jugular vein and after withdrawing blood syringe was removed and a guidewire passed under fluoroscopy into the superior vena cava. The site of the planned port was then marked on the chest and a 15 blade was used to make a 3 cm skin incision this was extended into the subcutaneous tissue using electrocautery and a subcutaneous pocket over the pectoralis fascia was created 2-0 Vicryl suture was used to suture the port to the pectoral fascia in the pocket on 3 sides. The catheter, after having been flushed with hep saline, was attached to the tunneler and a tunnel created between the port site and the internal jugular vein entry site. Under fluoroscopy the dilator sheath was passed over the guidewire into the proximal superior vena cava. The inner dilator was removed and the sheath left behind and the catheter was introduced through the peel-away sheath with the tip in the superior vena cava. The peel-away sheath was removed. The proximal end of the catheter was cut to the right size and was attached to the port. Using a Vargas needle the port was accessed, it withdrew blood easily and flushed easily. A final 5cc of heparin was used to flush the PowerPort. The subcutaneous tissue was approximated using interrupted 3-0 Vicryl sutures and the skin at the introducer site and the port site was closed using subcuticular running 4-0 Monocryl sutures. Surgical glue was applied and the patient was stable throughout the procedure. Fluoroscopic guidance and interpretation was performed for introduction of the guidewire in the right internal jugular vein, passage of dilator and placement of catheter tip in the distal superior vena cava A bite block was placed and Olympus gastroscope was introduced and advanced up to the stomach and the first portion of the duodenum. There were no abnormalities noted in the esophagus, stomach and duodenum. The site for the planned PEG was confirmed in the left upper quadrant with transillumination using gastroscope noted through the abdominal wall and indentation of the abdominal wall noted on the gastroscope. This site was marked, and total of 5 milliliters of 1% lidocaine was infiltrated. An 11-blade was used to make a stab incision. An introducer needle was passed through the abdominal wall into the gastric lumen and the needle removed and the needle removed and the sheath left behind. A guidewire was passed through the introducer needle into the gastric lumen and grasped with a snare attached to the gastroscope. The gastroscope was withdrawn along with the guidewire, which was attached to the 20-Korean EndoVive PEG tube. The guidewire was then pulled through the abdominal wall along with the PEG through the mouth into the gastric lumen until the inner disc was noted to stand against the gastric wall. The gastroscope was reintroduced to confirm good position. The outer disc was then attached and the two way valve was fixed to the PEG tube. The outer disc was noted to be at 3 centimeters at the skin level. Sterile dressing and abdominal binder was placed. The patient was stable throughout the procedure.
--- NOTE | 2021-07-26 16:20 | ANE.PACU2 ---
Inpatient post-anesthesia follow up: Airway intact: Yes Vital signs: Temperature 98.9 F Pulse Rate 60 Respiratory Rate 16 Blood Pressure 105/73 Pulse Oximetry 95 Oxygen Delivery Me thod Room Air Oxygen Flow Rate Fraction of Inspir ed Oxygen Hydration adequate: Yes Nausea and vomiting: No Pain level: 1 Mental status: Baseline
--- NOTE | 2021-07-26 16:49 | PC.NUTR ---
Received consult for PEG tube recommendations. When medically appropriate, recommend starting Jevity 1.2 @ 10 mls/hr (running continuously), increasing 10 mls/hr Q8H as tolerated, until goal rate of 60 mls/hr is reached, with flushes 100 mls Q4H or per MD discretion. Will consult with Faisal when Pt is ready to discharge to recommend either continuous or bolus feeding recommendations. See RD note for details.
--- NOTE | 2021-07-26 17:35 | ECG_ITS ---
[facility] Test Date: 2021-07-26 Pat Name: Kareem Morrissey Department: Room: 266 Gender: Male [employer]: : 1955 Requested By: Byron Angelo Order Number: [id number] Tabitha MD: Kathi Freire M.D. Measurements Intervals [place] Rate: 72 P: 92 FL: 168 QRS: -45 QRSD: 77 T: 265 QT: 418 QTc: 460 Interpretive Statements SINUS RHYTHM WITH OCCASIONAL SUPRAVENTRICULAR PREMATURE COMPLEXES IN A BIGEMINAL PATTERN LEFT AXIS DEVIATION [QRS AXIS < -30] LOW QRS VOLTAGE IN EXTREMITY LEADS [QRS DEFLECTION < 0.5 mV IN LIMB LEADS] ST DEVIATION AND MODERATE T-WAVE ABNORMALITY, CONSIDER ANTEROLATERAL ISCHEMIA [-0.1+ mV T-WAVE IN V3-V6] Compared to ECG 07/25/2021 17:18:39 No significant changes Electronically Signed On 07-28-2021 9:35:43 CDT by Kathi Freire M.D. [id number]
[2021-07-26] MEDS: morphine 4 mg/mL SDV 1 mL 0.5 MG IVP (18:23)
[2021-07-26] MEDS: iron sucrose 200 MG in sodium chloride 0.9% (100 ml) 100 ML 220 MG IV (18:23)
[2021-07-26] MEDS: sucralfate 1 gm Tablet PO ×2 (18:24→21:48)
[2021-07-26] MEDS: cilostazol 100 mg Tablet 50 MG PO (18:24)
[2021-07-26 19:18] LABS: Troponin T (5th) Once 20 ng/L (0-15)
[2021-07-26] MEDS: midodrine 5 mg TABLET 10 MG PO (21:48)
[2021-07-26] MEDS: pantoprazole 40 mg SDV IVP (21:48)
[2021-07-26] MEDS: ondansetron 2 mg/ML SDV 2 mL 4 MG IVP (22:04)
[2021-07-27] VITALS (8 sets, daily range): BP systolic 95–116; BP diastolic 62–81; PULSE 77–113; RESP 12–18; TEMP 36.4–37.1; O2SAT 92–96
[2021-07-27 05:13] LABS: Basophils % 0.3 %; Hematocrit 26.5 % (42.0-52.0); Lymphocytes # 0.5 10^3/uL (0.8-4.8); Lymphocytes % 6.3 %; Mean Corpuscular Hemoglobin 35.7 pg (28.0-34.0); Mean Corpuscular Volume 105.2 fl (80-94); Mean Platelet Volume 9.2 fL (7.4-10.4); Monocytes # 0.7 10^3/uL (0.2-0.9); Monocytes % 8.8 %; Neutrophils # 6.41 10^3/uL (1.8-7.7); Neutrophils % 84.5 %; Nucleated Red Blood Cells % 0 %; Platelet Count 235 10^3/cmm (130-400); Red Blood Count 2.52 10^6/uL (4.1-5.3); Red Cell Distribution Width 14.6 % (12.1-15.1); White Blood Count 7.6 10^3/uL (4.0-10.0)
[2021-07-27 05:45] LABS: Alanine Aminotransferase < 5 U/L (0-41); Albumin Level 2.3 g/dL (3.5-5.2); Alkaline Phosphatase 66 IU/L (40-130); Anion Gap 15.4 (5-19); Aspartate Amino Transferase 9 U/L (0-40); Blood Urea Nitrogen 9 mg/dL (8-23); Carbon Dioxide 27 mmol/L (22-29); Chloride 97 mmol/L (98-107); Globulin 2.6 g/dL (1.3-4.6); Glomerular Filtration Rate 165.4 mL/min (90-130); Glucose 101 mg/dL (65-115); Magnesium 1.4 mg/dL (1.7-2.3); Osmolality Calculated 281 mOsm/kg (285-295); Phosphorus 2.2 mg/dL (2.5-4.5); Potassium 3.4 mmol/L (3.5-5.1); Sodium 136 mmol/L (136-145); Total Bilirubin 0.5 mg/dL (0.15-1.2); Total Protein 4.9 g/dL (6.6-8.7)
[2021-07-27] MEDS: sucralfate 1 gm Tablet PO ×4 (06:30→20:54)
[2021-07-27 06:41] LABS: Glucose Point of Care 74 mg/dL (70-110)
[2021-07-27 06:41] LABS: Glucose Point of Care 104 mg/dL (70-110)
[2021-07-27] MEDS: midodrine 5 mg TABLET 10 MG PO ×3 (10:41→20:54)
[2021-07-27] MEDS: aspirin 81 mg EC Tablet PO (10:42)
[2021-07-27] MEDS: cilostazol 100 mg Tablet 50 MG PO ×2 (10:43→19:22)
[2021-07-27] MEDS: thiamine 100 mg Tablet PO (10:43)
[2021-07-27] MEDS: folic acid 1 mg Tablet PO (10:44)
[2021-07-27] MEDS: atorvastatin 40 mg Tablet 20 MG PO (10:45)
[2021-07-27] MEDS: multivitamin therapeutic Tablet 1 TAB PO (10:45)
--- NOTE | 2021-07-27 10:49 | PC.NUTR ---
Consult for bolus recommendations for tube feeding. Recommend Jevity 1.2, 6 x 237 mls/day. This works out nicely to 2 x 237 mls of Jevity 1.2 at breakfast, lunch and dinner, with 60 ml flushes before and after. Recommend either additional flushes of 120 mls Q12H or PO intake of 240 mls/day to meet fluid needs.
[2021-07-27] MEDS: magnesium sulfate premix 4 GM/100 ML PREMIX IV (11:08)
--- NOTE | 2021-07-27 12:46 | P.PN_ITS ---
Subjective Subjective: Patient tolerated tube feeds last night, being transitioned to bolus feeds today Medications: Reviewed: Yes Vitals/I&O/Wt Last Vital Signs Temp 98.8 F 07/27/21 07:44 Pulse 77 07/27/21 07:44 Resp 14 07/27/21 07:44 BP 95/62 07/27/21 07:44 Pulse Ox 95 07/27/21 07:44 07/26/21 07/27/21 07/27/21 22:59 06:59 14:59 Intake Total 2471.2 / 4131.2 0 / 4131.2 Output Total 200 / 555 Balance 2471.2 / 3576.2 -200 / 3576.2 Weight last 48 hrs Weight 128 lb 6.4 oz Weight 104 lb 8 oz Physical Exam Narrative: Right chest: Port-A-Cath in place, no cellulitis or hematoma Abdomen: PEG tube in place, dressing slightly stained with blood Urinary Catheter Management: Kirk: Cath Placed During This Visit: yes Reason for Continuing Indwelling Catheter: Acute Urinary Retention or Obstruction Urinary Catheter Date of Insertion: 07/26/21 Urinary Catheter Time of Insertion: 06:05 Data : 07/27/21 04:19 07/27/21 04:19 A&P Assessment and plan (1) Port-A-Cath in place: Surgical site looks good Okay to use the port Status: Acute (2) S/P percutaneous endoscopic gastrostomy (PEG) tube placement: Overall doing well, tolerated tube feeds last night, plan for bolus feeds today Status: Acute Attestations Medical Necessity Statement*: As per primary Coding Level of Care Code Acute Organizational Consultant for g Fwd Diagnoses Port-A-Cath in place Z95.828 S/P percutaneous endoscopic gastrostomy (PEG) tube placement Z93.1
--- NOTE | 2021-07-27 13:59 | PC.NURSE ---
When administering medications, the patient's wanted to observe how to administerd them in case she had to at home. She observed while I administered crushed pills with water.
--- NOTE | 2021-07-27 16:26 | P.PN_ITS ---
Subjective Subjective: Patient was seen this morning, is receiving PEG tube feedings, he tells me he continues to feel weak, no chest pain this morning, but did have episodes of chest pain yesterday afternoon Vitals/I&O/Wt Last Vital Signs Temp 97.7 F 07/27/21 12:00 Pulse 86 07/27/21 12:00 Resp 12 07/27/21 12:00 BP 99/70 07/27/21 12:00 Pulse Ox 95 07/27/21 12:00 07/27/21 07/27/21 07/27/21 06:59 14:59 22:59 Intake Total 0 / 4131.2 300 / 300 Output Total 200 / 555 Balance -200 / 3576.2 300 / 300 Weight last 48 hrs Weight 58.241 kg Physical Exam Const: COMMON NORMALS: no acute distress and patient oriented x3 Resp: COMMON NORMALS: normal respiratory effort, No retractions, No use of accessory muscles and clear to auscultation bilaterally AUSCULTATION: clear to auscultation bilaterally Cardio: COMMON NORMALS: regular rate, regular rhythm, S1 normal heart sound pr esent and S2 normal heart sound present RATE: regular rate RHYTHM: regular rhythm HEART SOUNDS: S1 normal heart sound present and S2 normal heart sound present GI: COMMON NORMALS: Normal to inspection, nondistended, normoactive bowel sounds present, Soft to palpation, non-tender and No hepatosplenomegaly present PALPATION: Yes Soft to palpation and Yes No hepatosplenomegaly present OTHER: PEG tube in place, slight bloody drainage around bandage, PowerPort Extremity: COMMON NORMALS: no pedal edema Neuro: COMMON NORMALS: patient oriented x3 Psych: COMMON NORMALS: mental status grossly normal Urinary Catheter Management: Kirk: Cath Placed During This Visit: yes Reason for Continuing Indwelling Catheter: Acute Urinary Retention or Obstru ction Urinary Catheter Date of Insertion: 07/26/21 Urinary Catheter Time of Insertion: 06:05 Data : 07/27/21 04:19 07/27/21 04:19 A&P Assessment and plan (1) Dysphagia: Status: Acute (2) Fatigue: Status: Acute Qualifiers: Fatigue type: unspecified Qualified Code(s): R53.83 - Other fatigue (3) Malignant neoplasm nasopharynx: Status: Acute (4) Falls: Status: Acute (5) Acute anemia: Status: Acute (6) Protein calorie malnutrition: Status: Acute (7) Physical deconditioning: Status: Acute Plan 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 Large bulky heterogeneously enhancing mass compatible with neoplasm involving the posterior nasopharynx extending to involve the hard and soft palate and uvula. This measures approximately 4.6 x 6.0 x 6.5 cm. Findings likely due to nasopharyngeal carcinoma. 2.? Associated invasion into the RIGHT greater than LEFT maxilla. This erodes the posterior wall of the RIGHT maxillary sinus with invasion into the RIGHT maxillary sinus. Erosion of the RIGHT greater than LEFT pterygoid plates with extension into the RIGHT medical staff physician space 3.? Neoplasm extends posteriorly to the RIGHT condylar fossa posterior to the mandibular condyle. Loss of the prevertebral fat plane in the prevertebral soft tissues. 4.? Neoplasm extends into the RIGHT pterygopalatine fossa and sphenopalatine foramen. This extends laterally into the pterygomaxillary fissure. Extension along the inferior orbital fissure anteriorly foramen rotundum posteriorly. Expansion of vidian canal on the RIGHT. 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 5.? Above findings can be further evaluated with face CT. In addition recommend staging with PET/CT. 6.? Numerous bilateral bilateral metastatic lymph nodes largest in the LEFT measuring 1.9 x 1.5 x 2.1 cm posterior to the LEFT submandibular gland. Numerous smaller enhancing lymph nodes throughout both cervical chains. Enhancing 7 mm sublingual lymph node. 7.? Opacification RIGHT greater than LEFT mastoid air cells. Plan; -Status post port placement -Status post PEG tube placement, tolerated continuous tube feeds at 10 cc an hour, transition to bolus tube feedings -Stop fluids -clear liquid diet -Full code -SCDs for DVT prophylaxis, Lovenox relatively contraindicated given anemia Dysphagia -Has nasopharyngeal carcinoma as above -Concerns for aspiration Plan -chest x-ray nos aspiration -Have speech therapy evaluate patient,clears, -Aspiration precautions Poor appetite, weight loss, nasopharyngeal cancer -We will get tube feeds ? Acute anemia -combination of iron deficiency and folate deficiency -Baseline hemoglobin unknown, no history of GI bleeds, no history of blood transfusions -folate and iron defecient -1 dose of Venofer -Stool Hemoccult -Protonix, Carafate -Monitor hemodynamics to monitor for bloody or black stools Hypotension -given stress dose steroid -getting fluids -will add midodrine -likely secondary to dehydration, low body mass History of alcohol consumption, CIWA score, thiamine, banana bag Protein calorie malnutrition, consult nutrition Physical deconditioning, PT OT Hypokalemia, hypomagnesemia, hypophosphatemia will replace today Chest pain, nonspecific, EKG no acute ST-T wave changes, troponin is #20, monitor Attestations Medical Necessity Statement*: Patient requires hospitalization for deconditioning, PEG tube feedings, cancer, anemia, hypomagnesemia, hypophosphatemia, hypokalemia, Coding Level of Care Code Acute Icing Machine Operator for g Fwd Diagnoses Dysphagia R13.10 Fatigue R53.83 Fatigue type: unspecified Malignant neoplasm nasopharynx C11.9 Falls W19.XXXA Acute anemia D64.9 Protein calorie malnutrition E46 Physical deconditioning R53.81
[2021-07-27] MEDS: pantoprazole 40 mg SDV IVP (21:32)
[2021-07-28] VITALS (9 sets, daily range): BP systolic 88–99; BP diastolic 62–72; PULSE 86–137; RESP 12–19; TEMP 36.2–36.8; O2SAT 94–97
[2021-07-28 05:56] LABS: Basophils % 0.3 %; Eosinophils % 0.1 %; Hematocrit 25.5 % (42.0-52.0); Hemoglobin 8.8 g/dL (11.7-16.6); Lymphocytes # 0.5 10^3/uL (0.8-4.8); Lymphocytes % 6.4 %; Mean Corpuscular HGB Conc 34.5 g/dL (30.0-36.0); Mean Corpuscular Hemoglobin 35.5 pg (28.0-34.0); Mean Corpuscular Volume 102.8 fl (80-94); Mean Platelet Volume 8.9 fL (7.4-10.4); Monocytes # 0.9 10^3/uL (0.2-0.9); Monocytes % 11.5 %; Neutrophils # 6.07 10^3/uL (1.8-7.7); Neutrophils % 81.4 %; Nucleated Red Blood Cells % 0 %; Platelet Count 218 10^3/cmm (130-400); Red Blood Count 2.48 10^6/uL (4.1-5.3); Red Cell Distribution Width 14.2 % (12.1-15.1); White Blood Count 7.5 10^3/uL (4.0-10.0)
--- NOTE | 2021-07-28 05:58 | PC.NURSE ---
474 ml of jevity 1.2 given via peg tube after placement confirmation. flushed with 60 ml before and after
[2021-07-28] MEDS: sucralfate 1 gm Tablet PO ×4 (06:00→21:25)
[2021-07-28 06:20] LABS: Alanine Aminotransferase < 5 U/L (0-41); Albumin Level 2.3 g/dL (3.5-5.2); Alkaline Phosphatase 62 IU/L (40-130); Anion Gap 12.4 (5-19); Aspartate Amino Transferase 8 U/L (0-40); Blood Urea Nitrogen 8 mg/dL (8-23); Calcium 8.7 mg/dL (8.5-10.5); Carbon Dioxide 30 mmol/L (22-29); Chloride 97 mmol/L (98-107); Globulin 2.4 g/dL (1.3-4.6); Glomerular Filtration Rate 213.9 mL/min (90-130); Glucose 111 mg/dL (65-115); Magnesium 1.7 mg/dL (1.7-2.3); Osmolality Calculated 281 mOsm/kg (285-295); Potassium 3.4 mmol/L (3.5-5.1); Sodium 136 mmol/L (136-145); Total Bilirubin 0.6 mg/dL (0.15-1.2); Total Protein 4.7 g/dL (6.6-8.7)
--- NOTE | 2021-07-28 07:40 | ECG_ITS ---
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 Measurements Intervals [place] Rate: 124 P: 56 DE: 147 QRS: -11 QRSD: 87 T: 60 QT: 317 QTc: 456 Interpretive Statements Multifocal atrial tachycardia LOW QRS VOLTAGE IN EXTREMITY LEADS [QRS DEFLECTION < 0.5 mV IN LIMB LEADS] ST DEVIATION AND MODERATE T-WAVE ABNORMALITY, CONSIDER ANTEROLATERAL ISCHEMIA [-0.1+ mV T-WAVE IN V3-V6] WARNING: DATA QUALITY MAY AFFECT INTERPRETATION Compared to ECG 07/26/2021 16:45:08 Sinus rhythm no longer present Sinus arrhythmia no longer present Myocardial infarct finding no longer present T-wave abnormality still present Possible ischemia still present Electronically Signed On 07-28-2021 13:39:06 CDT by Kathi Freire M.D. [id number]
--- NOTE | 2021-07-28 07:56 | USCV_ITS ---
Kareem Morrissey Age: 66 Gender: M : 1955 Exam Date: 07/28/2021 10:06 Ordering Phys: Byron Angelo MD Technologist: Antwon Becerril [place] [facility] [place] BP: / HR: Rhythm: Sinus Technical Quality: Very technically difficult study MEASUREMENTS (Male / Female) Normal Values FINDINGS Left Ventricle This is a technically poor study and is essentially uninterpretable. No useful information can be gleaned. Right Ventricle Right Atrium Left Atrium Mitral Valve Aortic Valve Tricuspid Valve Pulmonic Valve Pericardium Aorta CONCLUSIONS Technically uninterpretable study. Dr. Russel Castrejon MD (Electronically Signed) Final Date: 28 July 2021 17:08 S
[2021-07-28] MEDS: lactated ringers 1,000 ML 999 ML IV (08:12)
--- NOTE | 2021-07-28 08:15 | PC.NURSE ---
Patient's BP 88/64. 1000ml of LR rapid bolus infusing. Starting Mag IV. Need to reschedule potassium to 10:00. Calling pharmacy to change scheduling
[2021-07-28] MEDS: magnesium sulfate premix 4 GM/100 ML PREMIX IV (08:19)
[2021-07-28] MEDS: aspirin 81 mg EC Tablet PO (08:25)
[2021-07-28] MEDS: folic acid 1 mg Tablet PO (08:25)
[2021-07-28] MEDS: atorvastatin 40 mg Tablet 20 MG PO (08:26)
[2021-07-28] MEDS: cilostazol 100 mg Tablet 50 MG PO ×2 (08:27→18:37)
[2021-07-28] MEDS: thiamine 100 mg Tablet PO (08:28)
[2021-07-28] MEDS: multivitamin therapeutic Tablet 1 TAB PO (08:28)
[2021-07-28 08:36] LABS: Troponin(5th) Baseline 20 ng/L (0-15)
--- NOTE | 2021-07-28 09:07 | USCV_ITS ---
GhanshyamKareem de la garza Age: 66 Gender: M : 1955 Exam Date: 07/28/2021 10:10 Ordering Phys: Byron Angelo MD Technologist: Antwon Becerril [place] [facility] [place] Indication: BED STASIS PROCEDURES: The venous duplex Doppler examination of both lower extremities was performed in the standard fashion. The following venous structures were evaluated: common femoral vein, profunda vein, proximal portion of the greater saphenous vein, superficial femoral vein, and the popliteal vein. In addition, the posterior tibial and peroneal trunk were evaluated. FINDINGS: Normal 2-D Doppler and augmentation and compressibility throughout the lower extremity venous structures. Additional imaging through the proximal calf veins also reveals no thrombus. Limited evaluation of the greater saphenous vein is patent with no thrombus. CONCLUSIONS No DVT bilateral lower extremities. Dr. Stephanie Madera DO (Electronically Signed) Final Date: 28 July 2021 11:08 S
--- NOTE | 2021-07-28 09:36 | ECG_ITS ---
[facility] Test Date: 2021-07-28 Pat Name: Kareem Morrissey Department: Room: 266 Gender: Male Sas Administrator: : 1955 Requested By: Byron Angelo Order Number: [id number] Tabitah MD: Kathi Freire M.D. Measurements Intervals [place] Rate: 109 P: 50 [place]: 158 QRS: -26 QRSD: 70 T: 180 QT: 314 QTc: 424 Interpretive Statements SINUS TACHYCARDIA WITH FREQUENT SUPRAVENTRICULAR PREMATURE COMPLEXES BORDERLINE LEFT AXIS DEVIATION [QRS AXIS < -20] LOW QRS VOLTAGE IN EXTREMITY LEADS [QRS DEFLECTION < 0.5 mV IN LIMB LEADS] MODERATE T-WAVE ABNORMALITY, CONSIDER ANTEROLATERAL ISCHEMIA [-0.1+ mV T-WAVE IN V3-V6] Compared to ECG 07/28/2021 08:41:30 Ventricular premature complex(es) no longer present T-wave abnormality still present Possible ischemia still present Electronically Signed On 07-28-2021 13:40:13 CDT by Kathi Freire M.D. [id number]
--- NOTE | 2021-07-28 09:40 | ECG_ITS ---
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 Measurements Intervals [place] Rate: 116 P: 36 [place]: 158 QRS: -30 QRSD: 66 T: 0 QT: 289 QTc: 401 Interpretive Statements SINUS TACHYCARDIA WITH FREQUENT VENTRICULAR PREMATURE COMPLEXES WITH FREQUENT SUPRAVENTRICULAR PREMATURE COMPLEXES BORDERLINE LEFT AXIS DEVIATION [QRS AXIS < -20] LOW QRS VOLTAGE IN EXTREMITY LEADS [QRS DEFLECTION < 0.5 mV IN LIMB LEADS] ST DEVIATION AND MODERATE T-WAVE ABNORMALITY, CONSIDER ANTEROLATERAL ISCHEMIA [-0.1+ mV T-WAVE IN V3-V6] Compared to ECG 07/28/2021 06:49:54 Ventricular premature complex(es) now present T-wave abnormality still present Possible ischemia still present Electronically Signed On 07-28-2021 13:58:07 CDT by Kathi Freire M.D. [id number]
--- NOTE | 2021-07-28 09:44 | CT_ITS ---
WS: [id number] Exam: CT angio chest PE protcl [id number] Date/Time of Exam: 07/28/2021 12:16 PM Reason For Exam: sinus tachycardia DLP: 533.[address] scans at [facility] use at least one of these dose optimization techniques: automated e xposure control; mA and/or kV adjustment per patient size (includes targeted exams where dose is matc hed to clinical indication); or iterative reconstruction. No sign of acute PE. The thoracic aorta is normal in caliber. The airway is patent. Posterior pleural effusions are noted. Compressive atelectasis of both lower lobes. No pneumothorax. No pericardial ef fusion. The trachea and mainstem bronchi are patent. CT sections the upper abdomen demonstrate pneumo peritoneum. A gastrotomy tube is noted in the stomach. No destructive bone lesions are seen. The ches t wall is intact. A Chemo-Port is seen along the right chest wall. The catheter appears to extend int o the SVC. Subcutaneous air noted along the central and right chest wall. CT/CT angio chest PE protcl [id number] IMPRESSION: 1. No sign of acute PE. 2. Posterior bilateral pleural effusions with compressive atelectasis of both l ower lobes. 3. Pneumoperitoneum noted. Additional findings as indicated above.
[2021-07-28 10:28] LABS: D Dimer 1.36 ug/mIFEU (0-0.59)
[2021-07-28 10:36] LABS: Troponin 5 2HR 20.23 ng/L (0-15); Troponin 5 2HR Delta 0.23 ABS# (0-10)
[2021-07-28] MEDS: sodium chloride 0.9% 1,000 ML 125 ML IV (10:37)
--- NOTE | 2021-07-28 10:50 | PC.SOCIAL ---
IMM Update Pg. 2 of IMM updated and reviewed with patient, who verbalized understanding. Copy provided.
[2021-07-28] MEDS: iohexol 350 mg/mL 100 mL Btl IV (12:22)
--- NOTE | 2021-07-28 13:40 | ECG_ITS ---
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 Measurements Intervals [place] Rate: 128 P: [place]: QRS: -8 QRSD: 73 T: 207 QT: 303 QTc: 443 Interpretive Statements Multifocal atrial tachycardia LOW QRS VOLTAGE IN EXTREMITY LEADS [QRS DEFLECTION < 0.5 mV IN LIMB LEADS] NONSPECIFIC ST & T-WAVE ABNORMALITY Compared to ECG 07/28/2021 09:25:40 Sinus tachycardia no longer present Possible ischemia no longer present T-wave abnormality still present Electronically Signed On 07-29-2021 11:35:08 CDT by Russel Castrejon M.D. [id number]
[2021-07-28 14:41] LABS: Troponin 5 6HR 19.27 ng/L (0-15)
[2021-07-28 14:48] LABS: Troponin 5 6HR Delta -0.73 ng/L (0-12)
[2021-07-28] MEDS: amiodarone 200 mg Tablet 400 MG PO (15:13)
--- NOTE | 2021-07-28 15:16 | PM.PN ---
Subjective Subjective: Patient was seen this morning, he is alert to person, to place, time, he had his bolus tube feedings and is tolerating it well, he continues to have episodes of tachycardia, heart rates as high as 150, especially when getting up and moving around, no chest pain this morning, no shortness of breath, not requiring any oxygen Vitals/I&O/Wt Last Vital Signs Temp 97.9 F 07/28/21 10:50 Pulse 137 H 07/28/21 14:00 Resp 16 07/28/21 10:50 BP 95/63 07/28/21 10:50 Pulse Ox 97 07/28/21 10:50 07/28/21 07/28/21 07/28/21 06:59 14:59 22:59 Intake Total 160 / 1223.0909 1700 / 1700 Output Total 500 / 500 Balance -340 / 723.0909 1700 / 1700 Weight last 48 hrs Weight 57.153 kg Weight 58.241 kg Physical Exam Const: COMMON NORMALS: no acute distress and patient oriented x3 Resp: COMMON NORMALS: normal respiratory effort, No retractions, No use of accessory muscles and clear to auscultation bilaterally AUSCULTATION: clear to auscultation bilaterally Cardio: COMMON NORMALS: S1 normal heart sound present and S2 normal heart sound present RATE: tachycardic RHYTHM: abnormal rhythm HEART SOUNDS: S1 normal heart sound present and S2 normal heart sound present GI: COMMON NORMALS: Normal to inspection, nondistended, normoactive bowel sounds present, Soft to palpation, non-tender and No hepatosplenomegaly present PALPATION: Yes Soft to palpation and Yes No hepatosplenomegaly present Extremity: COMMON NORMALS: no pedal edema Neuro: COMMON NORMALS: patient oriented x3 Psych: COMMON NORMALS: mental status grossly normal Urinary Catheter Management: Kirk: Cath Placed During This Visit: yes Reason for Continuing Indwelling Catheter: Acute Urinary Retention or Obstruction Urinary Catheter Date of Insertion: 07/26/21 Urinary Catheter Time of Insertion: 06:05 Data : 07/28/21 05:46 07/28/21 05:46 A&P Assessment and plan (1) Atrial fibrillation with RVR: Status: Acute (2) Dysphagia: Status: Acute (3) Fatigue: Status: Acute Qualifiers: Fatigue type: unspecified Qualified Code(s): R53.83 - Other fatigue (4) Malignant neoplasm nasopharynx: Status: Acute (5) Falls: Status: Acute (6) Acute anemia: Status: Acute (7) Protein calorie malnutrition: Status: Acute (8) Physical deconditioning: Status: Acute Plan A. fib with RVR -Complicated with hypotension, blood pressure improving with fluid boluses for short-term low patient's blood pressures are soft given his low BMI, has not responded to midodrine, has not responded to hydrocortisone -D-dimer elevated, venous ultrasound negative for DVT, CT angiogram negative for pulmonary emboli -6-hour troponin XIX 0.27, down to 0.73 -Given soft blood pressures, controlling heart rate will be difficult -Replace magnesium, potassium and phosphorus -For now we will try amiodarone 400 twice daily -Can consider digoxin -Cardiac echocardiogram pending -Anticoagulation relatively contraindicated given GI bleed 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 Large bulky heterogeneously enhancing mass compatible with neoplasm involving the posterior nasopharynx extending to involve the hard and soft palate and uvula. This measures approximately 4.6 x 6.0 x 6.5 cm. Findings likely due to nasopharyngeal carcinoma. 2.? Associated invasion into the RIGHT greater than LEFT maxilla. This erodes the posterior wall of the RIGHT maxillary sinus with invasion into the RIGHT maxillary sinus. Erosion of the RIGHT greater than LEFT pterygoid plates with extension into the RIGHT unattended ground sensor specialist space 3.? Neoplasm extends posteriorly to the RIGHT condylar fossa posterior to the mandibular condyle. Loss of the prevertebral fat plane in the prevertebral soft tissues. 4.? Neoplasm extends into the RIGHT pterygopalatine fossa and sphenopalatine foramen. This extends laterally into the pterygomaxillary fissure. Extension along the inferior orbital fissure anteriorly foramen rotundum posteriorly. Expansion of vidian canal on the RIGHT. 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 5.? Above findings can be further evaluated with face CT. In addition recommend staging with PET/CT. 6.? Numerous bilateral bilateral metastatic lymph nodes largest in the LEFT measuring 1.9 x 1.5 x 2.1 cm posterior to the LEFT submandibular gland. Numerous smaller enhancing lymph nodes throughout both cervical chains. Enhancing 7 mm sublingual lymph node. 7.? Opacification RIGHT greater than LEFT mastoid air cells. Plan; -Status post port placement -Status post PEG tube placement, on bolus tube feedings -N.p.o. -Full code -SCDs for DVT prophylaxis, Lovenox relatively contraindicated given anemia Dysphagia -Has nasopharyngeal carcinoma as above -Concerns for aspiration Plan -chest x-ray nos aspiration -Have speech therapy evaluate patient,clears, -Aspiration precautions Poor appetite, weight loss, nasopharyngeal cancer -We will get tube feeds ? Acute anemia -combination of iron deficiency and folate deficiency -Baseline hemoglobin unknown, no history of GI bleeds, no history of blood transfusions -folate and iron defecient -1 dose of Venofer -Stool Hemoccult -Protonix, Carafate -Monitor hemodynamics to monitor for bloody or black stools Hypotension -given stress dose steroid -getting fluids, temporary response, chronically hypotensive -Not responsive to midodrine -likely secondary to low body mass History of alcohol consumption, CIWA score, thiamine, banana bag Protein calorie malnutrition, consult nutrition Physical deconditioning, PT OT Hypokalemia, hypomagnesemia, hypophosphatemia will replace today Chest pain, nonspecific, EKG does show T wave inversions in anterior leads, on aspirin, statin, anticoagulation relatively contraindicated, beta-mina relatively contraindicated, cardiac echocardiogram ordered Attestations Medical Necessity Statement*: Patient requires hospitalization for atrial fibrillation with rapid ventricular response, hypokalemia, hypophosphatemia, status post PEG tube placement, protein calorie malnutrition, physical deconditioning Coding Level of Care Code Acute Material Control Supervisor for [facility] Fwd Diagnoses Atrial fibrillation with RVR I48.91 Dysphagia R13.10 Fatigue R53.83 Fatigue type: unspecified Malignant neoplasm nasopharynx C11.9 Falls W19.XXXA Acute anemia D64.9 Protein calorie malnutrition E46 Physical deconditioning R53.81
[2021-07-28] MEDS: pantoprazole 40 mg SDV IVP (21:25)
[2021-07-29] VITALS (59 sets, daily range): BP systolic 94–122; BP diastolic 64–89; PULSE 94–143; RESP 0–29; TEMP 36.3–36.8; O2SAT 81–97
[2021-07-29] MEDS: amiodarone 200 mg Tablet 400 MG PO ×2 (03:04→15:35)
[2021-07-29 04:24] LABS: Basophils % 0.3 %; Eosinophils % 0.1 %; Hematocrit 24.4 % (42.0-52.0); Hemoglobin 8.4 g/dL (11.7-16.6); Lymphocytes # 0.4 10^3/uL (0.8-4.8); Lymphocytes % 4.7 %; Mean Corpuscular HGB Conc 34.4 g/dL (30.0-36.0); Mean Corpuscular Hemoglobin 35.1 pg (28.0-34.0); Mean Corpuscular Volume 102.1 fl (80-94); Mean Platelet Volume 9.2 fL (7.4-10.4); Monocytes # 0.8 10^3/uL (0.2-0.9); Monocytes % 10.4 %; Neutrophils # 6.42 10^3/uL (1.8-7.7); Neutrophils % 84.1 %; Nucleated Red Blood Cells % 0 %; Platelet Count 230 10^3/cmm (130-400); Red Blood Count 2.39 10^6/uL (4.1-5.3); White Blood Count 7.6 10^3/uL (4.0-10.0)
[2021-07-29 04:52] LABS: Alanine Aminotransferase < 5 U/L (0-41); Albumin Level 2.8 g/dL (3.5-5.2); Alkaline Phosphatase 62 IU/L (40-130); Anion Gap 10.1 (5-19); Aspartate Amino Transferase 10 U/L (0-40); Blood Urea Nitrogen 8 mg/dL (8-23); Calcium 8.6 mg/dL (8.5-10.5); Carbon Dioxide 29 mmol/L (22-29); Chloride 95 mmol/L (98-107); Globulin 2.6 g/dL (1.3-4.6); Glomerular Filtration Rate 213.9 mL/min (90-130); Glucose 122 mg/dL (65-115); Magnesium 1.5 mg/dL (1.7-2.3); Osmolality Calculated 272 mOsm/kg (285-295); Phosphorus 1.6 mg/dL (2.5-4.5); Potassium 3.1 mmol/L (3.5-5.1); Sodium 131 mmol/L (136-145); Total Bilirubin 0.7 mg/dL (0.15-1.2); Total Protein 5.4 g/dL (6.6-8.7)
[2021-07-29] MEDS: digoxin 250 mcg/ml INJ 2 mL IVP (05:26)
[2021-07-29] MEDS: sucralfate 1 gm Tablet PO ×4 (05:35→21:57)
[2021-07-29] MEDS: potassium chloride oral liq 20 mEq/15 mL UDC 40 MEQ PO (06:49)
[2021-07-29] MEDS: thiamine 100 mg Tablet PO (09:34)
[2021-07-29] MEDS: cilostazol 100 mg Tablet 50 MG PO ×3 (09:34→17:46)
[2021-07-29] MEDS: atorvastatin 40 mg Tablet 20 MG PO (09:34)
[2021-07-29] MEDS: folic acid 1 mg Tablet PO (09:34)
[2021-07-29] MEDS: aspirin 81 mg EC Tablet PO (09:34)
[2021-07-29] MEDS: multivitamin therapeutic Tablet 1 TAB PO (09:34)
[2021-07-29] MEDS: magnesium sulfate premix 4 GM/100 ML PREMIX IV (09:40)
[2021-07-29] MEDS: dilTIAZem 30 mg Tablet PO (09:40)
--- NOTE | 2021-07-29 11:53 | PC.PT ---
Hold per nursing. Pt's heart rate has been elevated all day and it just came down to 104 bpm and he is resting. Nurse wants to wait until tomorrow to recheck.
--- NOTE | 2021-07-29 12:53 | PM.PN ---
Subjective Subjective: Patient was seen this morning, he tells me he wants to go home, but feels weak, fatigued, he tells me that he has a history of atrial fibrillation with his heart rates going the high 140s, overnight he required digoxin for elevated heart rates, currently heart rates in the 110s, atrial fibrillation Vitals/I&O/Wt Last Vital Signs Temp 98.2 F 07/29/21 04:00 Pulse 122 H 07/29/21 12:48 Resp 16 07/29/21 12:48 BP 107/89 07/29/21 12:48 Pulse Ox 94 07/29/21 12:48 07/28/21 07/29/21 07/29/21 22:59 06:59 14:59 Intake Total 1998.2579 / 3698.2579 211.784 / 3910.0419 1168 / 1168 Output Total 600 / 600 125 / 725 Balance 1398.2579 / 3098.2579 86.784 / 3185.0419 1168 / 1168 Weight last 48 hrs Weight 57.153 kg Physical Exam Const: COMMON NORMALS: no acute distress and patient oriented x3 Resp: COMMON NORMALS: normal respiratory effort, No retractions, No use of accessory muscles and clear to auscultation bilaterally AUSCULTATION: clear to auscultation bilaterally Cardio: COMMON NORMALS: S1 normal heart sound present and S2 normal heart sound present RATE: tachycardic RHYTHM: abnormal rhythm HEART SOUNDS: S1 normal heart sound present and S2 normal heart sound present GI: COMMON NORMALS: Normal to inspection, nondistended, normoactive bowel sounds present, Soft to palpation, non-tender and No hepatosplenomegaly present PALPATION: Yes Soft to palpation and Yes No hepatosplenomegaly present : OTHER: PEG tube in place Extremity: COMMON NORMALS: no pedal edema Neuro: COMMON NORMALS: patient oriented x3 Psych: COMMON NORMALS: mental status grossly normal Urinary Catheter Management: Kirk: Cath Placed During This Visit: yes Reason for Continuing Indwelling Catheter: Acute Urinary Retention or Obstruction Urinary Catheter Date of Insertion: 07/26/21 Urinary Catheter Time of Insertion: 06:05 Data : 07/29/21 03:23 07/29/21 03:23 A&P Assessment and plan (1) Atrial fibrillation with RVR: Status: Acute (2) Dysphagia: Status: Acute (3) Fatigue: Status: Acute Qualifiers: Fatigue type: unspecified Qualified Code(s): R53.83 - Other fatigue (4) Malignant neoplasm nasopharynx: Status: Acute (5) Falls: Status: Acute (6) Acute anemia: Status: Acute (7) Protein calorie malnutrition: Status: Acute (8) Physical deconditioning: Status: Acute Plan A. fib with RVR -Complicated with hypotension, blood pressure improving with fluid boluses for short-term low patient's blood pressures are soft given his low BMI, has not responded to midodrine, has not responded to hydrocortisone -D-dimer elevated, venous ultrasound negative for DVT, CT angiogram negative for pulmonary emboli -6-hour troponin XIX 0.27, down to 0.73 -Given soft blood pressures, controlling heart rate will be difficult -Replace magnesium, potassium and phosphorus -For now we will try amiodarone 400 twice daily, added Cardizem 60 every 6, will consider additional digoxin pushes or even sotalol -Cardiac echocardiogram pending -Anticoagulation relatively contraindicated given GI bleed 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 Large bulky heterogeneously enhancing mass compatible with neoplasm involving the posterior nasopharynx extending to involve the hard and soft palate and uvula. This measures approximately 4.6 x 6.0 x 6.5 cm. Findings likely due to nasopharyngeal carcinoma. 2.? Associated invasion into the RIGHT greater than LEFT maxilla. This erodes the posterior wall of the RIGHT maxillary sinus with invasion into the RIGHT maxillary sinus. Erosion of the RIGHT greater than LEFT pterygoid plates with extension into the RIGHT dough sheeter space 3.? Neoplasm extends posteriorly to the RIGHT condylar fossa posterior to the mandibular condyle. Loss of the prevertebral fat plane in the prevertebral soft tissues. 4.? Neoplasm extends into the RIGHT pterygopalatine fossa and sphenopalatine foramen. This extends laterally into the pterygomaxillary fissure. Extension along the inferior orbital fissure anteriorly foramen rotundum posteriorly. Expansion of vidian canal on the RIGHT. 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 5.? Above findings can be further evaluated with face CT. In addition recommend staging with PET/CT. 6.? Numerous bilateral bilateral metastatic lymph nodes largest in the LEFT measuring 1.9 x 1.5 x 2.1 cm posterior to the LEFT submandibular gland. Numerous smaller enhancing lymph nodes throughout both cervical chains. Enhancing 7 mm sublingual lymph node. 7.? Opacification RIGHT greater than LEFT mastoid air cells. Plan; -Status post port placement -Status post PEG tube placement, on bolus tube feedings -N.p.o. -Full code -SCDs for DVT prophylaxis, Lovenox relatively contraindicated given anemia Dysphagia -Has nasopharyngeal carcinoma as above -Concerns for aspiration Plan -chest x-ray nos aspiration -Have speech therapy evaluate patient,clears, -Aspiration precautions Poor appetite, weight loss, nasopharyngeal cancer -Receiving bolus tube feedings ? Acute anemia -combination of iron deficiency and folate deficiency -Baseline hemoglobin unknown, no history of GI bleeds, no history of blood transfusions -folate and iron defecient -1 dose of Venofer -Stool Hemoccult -Protonix, Carafate -Monitor hemodynamics to monitor for bloody or black stools Hypotension -given stress dose steroid -getting fluids, temporary response, chronically hypotensive -Not responsive to midodrine -likely secondary to low body mass History of alcohol consumption, CIWA score, thiamine, banana bag Protein calorie malnutrition, consult nutrition Physical deconditioning, PT OT Hypokalemia, hypomagnesemia, hypophosphatemia will replace today Chest pain, nonspecific, EKG does show T wave inversions in anterior leads, on aspirin, statin, anticoagulation relatively contraindicated, beta-mina relatively contraindicated, cardiac echocardiogram ordered Attestations Medical Necessity Statement*: Patient requires hospitalization for A. fib with RVR Coding Level of Care Code Acute Pit Shoveler for Chg Fwd Diagnoses Atrial fibrillation with RVR I48.91 Dysphagia R13.10 Fatigue R53.83 Fatigue type: unspecified Malignant neoplasm nasopharynx C11.9 Falls W19.XXXA Acute anemia D64.9 Protein calorie malnutrition E46 Physical deconditioning R53.81
--- NOTE | 2021-07-29 12:57 | PC.NURSE ---
Dressing around PEG tube was saturated with gastric contents this morning. Dressing changed, PEG placement verified and 120ml water flushed. Patients medications administered through PEG. Breakfast feeding of 474ml was given. Patient had a residual of 350ml this afternoon so noon feeding will be held.
[2021-07-29 14:53] LABS: Hematocrit 26.5 % (42.0-52.0); Hemoglobin 8.9 g/dL (11.7-16.6)
[2021-07-29] MEDS: dilTIAZem 60 mg Tablet PO ×2 (15:35→21:57)
[2021-07-29] MEDS: acetaminophen 325 mg Tablet 650 MG PO (15:51)
[2021-07-29] MEDS: docusate sodium 10 mg/mL (5ml) Liq 100 MG PO (17:46)
[2021-07-29] MEDS: pantoprazole 40 mg SDV IVP (21:57)
[2021-07-29] MEDS: morphine 4 mg/mL SDV 1 mL 1 MG IVP (22:06)
[2021-07-29] MEDS: trazodone 50 mg Tablet 25 MG PO (23:49)
[2021-07-30] VITALS (9 sets, daily range): BP systolic 84–107; BP diastolic 59–78; PULSE 64–127; RESP 12–22; TEMP 36.4–36.6; O2SAT 88–94
[2021-07-30] MEDS: amiodarone 200 mg Tablet 400 MG PO (02:56)
[2021-07-30] MEDS: dilTIAZem 60 mg Tablet PO ×3 (02:56→16:50)
[2021-07-30 05:23] LABS: Basophils % 0.2 %; Hematocrit 26.6 % (42.0-52.0); Hemoglobin 9.1 g/dL (11.7-16.6); Lymphocytes # 0.4 10^3/uL (0.8-4.8); Lymphocytes % 4.3 %; Mean Corpuscular HGB Conc 34.2 g/dL (30.0-36.0); Mean Corpuscular Hemoglobin 35.3 pg (28.0-34.0); Mean Corpuscular Volume 103.1 fl (80-94); Mean Platelet Volume 9.3 fL (7.4-10.4); Monocytes # 0.8 10^3/uL (0.2-0.9); Monocytes % 8.9 %; Neutrophils # 7.23 10^3/uL (1.8-7.7); Neutrophils % 86.2 %; Nucleated Red Blood Cells % 0 %; Platelet Count 264 10^3/cmm (130-400); Red Blood Count 2.58 10^6/uL (4.1-5.3); Red Cell Distribution Width 14.2 % (12.1-15.1); White Blood Count 8.4 10^3/uL (4.0-10.0)
[2021-07-30 05:52] LABS: Alanine Aminotransferase < 5 U/L (0-41); Albumin Level 2.7 g/dL (3.5-5.2); Alkaline Phosphatase 63 IU/L (40-130); Anion Gap 12.6 (5-19); Aspartate Amino Transferase 10 U/L (0-40); Blood Urea Nitrogen 6 mg/dL (8-23); Calcium 8.9 mg/dL (8.5-10.5); Carbon Dioxide 29 mmol/L (22-29); Chloride 95 mmol/L (98-107); Globulin 2.4 g/dL (1.3-4.6); Glomerular Filtration Rate 213.9 mL/min (90-130); Glucose 118 mg/dL (65-115); Magnesium 1.7 mg/dL (1.7-2.3); Osmolality Calculated 275 mOsm/kg (285-295); Phosphorus 2.9 mg/dL (2.5-4.5); Potassium 3.6 mmol/L (3.5-5.1); Sodium 133 mmol/L (136-145); Total Bilirubin 0.6 mg/dL (0.15-1.2); Total Protein 5.1 g/dL (6.6-8.7)
[2021-07-30] MEDS: sucralfate 1 gm Tablet PO ×4 (06:26→20:59)
[2021-07-30] MEDS: atorvastatin 40 mg Tablet 20 MG PO (08:03)
[2021-07-30] MEDS: multivitamin therapeutic Tablet 1 TAB PO (08:04)
[2021-07-30] MEDS: aspirin 81 mg EC Tablet PO (08:04)
[2021-07-30] MEDS: docusate sodium 10 mg/mL (5ml) Liq 100 MG PO (08:05)
[2021-07-30] MEDS: thiamine 100 mg Tablet PO (08:05)
[2021-07-30] MEDS: folic acid 1 mg Tablet PO (08:05)
--- NOTE | 2021-07-30 08:34 | ECG_ITS ---
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 Measurements Intervals [place] Rate: 125 P: [place]: QRS: -50 QRSD: 78 T: 84 QT: 308 QTc: 445 Interpretive Statements Multifocal atrial tachycardia LEFT AXIS DEVIATION [QRS AXIS < -30] LOW QRS VOLTAGE [QRS DEFLECTION < 0.5/1.0 mV IN LIMB/CHEST LEADS] MINIMAL ST DEPRESSION [0.025+ mV ST DEPRESSION] Compared to ECG 07/28/2021 13:59:08 Left-axis deviation now present ST (T wave) deviation now present Ectopic atrial tachycardia, multifocal still present T-wave abnormality no longer present Electronically Signed On 07-30-2021 9:38:44 CDT by Russel Castrejon M.D. [email or web address].[id number]
[2021-07-30] MEDS: sotalol 80 mg Tablet PO ×2 (09:00→20:59)
[2021-07-30] MEDS: magnesium sulfate premix 4 GM/100 ML PREMIX IV (09:00)
--- NOTE | 2021-07-30 09:08 | PC.SOCIAL ---
IMM UPDATED Updated pt on IMM. No questions voiced. Provided pt a copy. Initialed, dated, & timed copy in chart.
--- NOTE | 2021-07-30 11:17 | PC.NURSE ---
Refused noon feeding, c/o fullness. 110ml gastric residual.
[2021-07-30] MEDS: dilTIAZem 30 mg Tablet 90 MG PO (13:08)
--- NOTE | 2021-07-30 13:55 | P.PN_ITS ---
Subjective Subjective: Patient was seen this morning, he told me that with this bolus to see this morning, he felt little bit bloating, heart rates are still in the 120s, atrial fibrillation Vitals/I&O/Wt Last Vital Signs Temp 97.5 F L 07/30/21 04:49 Pulse 76 07/30/21 12:59 Resp 12 07/30/21 12:12 BP 100/74 07/30/21 12:12 Pulse Ox 94 07/30/21 12:12 07/29/21 07/30/21 07/30/21 22:59 06:59 14:59 Intake Total 890.3069 / 2118.3069 946.7019 / 946.7019 Output Total 1350 / 1400 Balance 890.3069 / 2068.3069 -1350 / 718.3069 946.7019 / 946.7019 Physical Exam Const: COMMON NORMALS: no acute distress and patient oriented x3 Resp: COMMON NORMALS: normal respiratory effort, No retractions, No use of accessory muscles and clear to auscultation bilaterally AUSCULTATION: clear to auscultation bilaterally Cardio: COMMON NORMALS: S1 normal heart sound present and S2 normal heart sound present RATE: tachycardic RHYTHM: abnormal rhythm irregularly irregular HEART SOUNDS: S1 normal heart sound present and S2 normal heart sound present GI: COMMON NORMALS: Normal to inspection, nondistended, normoactive bowel sounds present, Soft to palpation, non-tender and No hepatosplenomegaly present PALPATION: Yes Soft to palpation and Yes No hepatosplenomegaly present Extremity: COMMON NORMALS: no pedal edema Neuro: COMMON NORMALS: patient oriented x3 Psych: COMMON NORMALS: mental status grossly normal Urinary Catheter Management: Kirk: Cath Placed During This Visit: yes Reason for Continuing Indwelling Catheter: Other Urinary Catheter Date of Insertion: 07/26/21 Urinary Catheter Time of Insertion: 06:05 Data : 07/30/21 04:05 07/30/21 04:05 A&P Assessment and plan (1) Atrial fibrillation with RVR: Status: Acute (2) Dysphagia: Status: Acute (3) Fatigue: Status: Acute Qualifiers: Fatigue type: unspecified Qualified Code(s): R53.83 - Other fatigue (4) Malignant neoplasm nasopharynx: Status: Acute (5) Falls: Status: Acute (6) Acute anemia: Status: Acute (7) Protein calorie malnutrition: Status: Acute (8) Physical deconditioning: Status: Acute Plan A. fib with RVR -Complicated with hypotension, blood pressure improving with fluid boluses for short-term low patient's blood pressures are soft given his low BMI, has not responded to midodrine, has not responded to hydrocortisone -D-dimer elevated, venous ultrasound negative for DVT, CT angiogram negative for pulmonary emboli -6-hour troponin XIX 0.27, down to 0.73 -Given soft blood pressures, controlling heart rate will be difficult -Replace magnesium, potassium and phosphorus -Has not responded to Cardizem, amiodarone, digoxin, will try sotalol -Cardiac echocardiogram pending -Anticoagulation relatively contraindicated given GI bleed 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 Large bulky heterogeneously enhancing mass compatible with neoplasm i nvolving the posterior nasopharynx extending to involve the hard and soft palate and uvula. This measures approximately 4.6 x 6.0 x 6.5 cm. Findings likely due to nasopharyngeal carcinoma. 2.? Associated invasion into the RIGHT greater than LEFT maxilla. This erodes the posterior wall of the RIGHT maxillary sinus with invasion into the RIGHT maxillary sinus. Erosion of the RIGHT greater than LEFT pterygoid plates with extension into the RIGHT slip injector and applicator space 3.? Neoplasm extends posteriorly to the RIGHT condylar fossa posterior to the mandibular condyle. Loss of the prevertebral fat plane in the prevertebral soft tissues. 4.? Neoplasm extends into the RIGHT pterygopalatine fossa and sphenopalatine foramen. This extends laterally into the pterygomaxillary fissure. Extension along the inferior orbital fissure anteriorly foramen rotundum posteriorly. Expansion of vidian canal on the RIGHT. 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 5.? Above findings can be further evaluated with face CT. In addition recommend staging with PET/CT. 6.? Numerous bilateral bilateral metastatic lymph nodes largest in the LEFT measuring 1.9 x 1.5 x 2.1 cm posterior to the LEFT submandibular gland. Numerous smaller enhancing lymph nodes throughout both cervical chains. Enhancing 7 mm sublingual lymph node. 7.? Opacification RIGHT greater than LEFT mastoid air cells. Plan; -Status post port placement -Status post PEG tube placement, on bolus tube feedings -N.p.o. sips and chips -Full code -SCDs for DVT prophylaxis, Lovenox relatively contraindicated given anemia Dysphagia -Has nasopharyngeal carcinoma as above -Concerns for aspiration Plan -chest x-ray no aspiration -Have speech therapy evaluate patient,clears, -Aspiration precautions Poor appetite, weight loss, nasopharyngeal cancer -Receiving bolus tube feedings ? Acute anemia -combination of iron deficiency and folate deficiency -Baseline hemoglobin unknown, no history of GI bleeds, no history of blood transfusions -folate and iron defecient -1 dose of Venofer -Stool Hemoccult -Protonix, Carafate -Monitor hemodynamics to monitor for bloody or black stools Hypotension -given stress dose steroid -getting fluids, temporary response, chronically hypotensive -Not responsive to midodrine -likely secondary to low body mass History of alcohol consumption, CIWA score, thiamine, banana bag Protein calorie malnutrition, consult nutrition Physical deconditioning, PT OT Hypokalemia, hypomagnesemia, hypophosphatemia will replace today Chest pain, nonspecific, EKG does show T wave inversions in anterior leads, on aspirin, statin, anticoagulation relatively contraindicated, beta-mina relatively contraindicated, cardiac echocardiogram ordered Attestations Medical Necessity Statement*: Patient requires hospitalization for A. fib with RVR, hypokalemia, hypophosphatemia, Coding Level of Care Code Acute Collections Manager for Chg Fwd Diagnoses Atrial fibrillation with RVR I48.91 Dysphagia R13.10 Fatigue R53.83 Fatigue type: unspecified Malignant neoplasm nasopharynx C11.9 Falls W19.XXXA Acute anemia D64.9 Protein calorie malnutrition E46 Physical deconditioning R53.81
--- NOTE | 2021-07-30 14:15 | PC.NURSE ---
Report given to Sandra GILMORE
[2021-07-30] MEDS: cilostazol 100 mg Tablet 50 MG PO (16:50)
--- NOTE | 2021-07-30 19:24 | PC.NURSE ---
o2 sats dropped into 80's .oxymask applied at 3 liters.sats increased into 90's
[2021-07-30] MEDS: trazodone 50 mg Tablet 25 MG PO (20:59)
[2021-07-30] MEDS: pantoprazole 40 mg SDV IVP (20:59)
[2021-07-31] VITALS (14 sets, daily range): BP systolic 72–155; BP diastolic 43–92; PULSE 67–102; RESP 14–20; TEMP 36.1–36.8; O2SAT 91–100
[2021-07-31 04:48] LABS: Basophils % 0.2 %; Eosinophils # 0.1 10^3/uL (0.0-0.8); Eosinophils % 0.7 %; Hematocrit 25.2 % (42.0-52.0); Hemoglobin 8.5 g/dL (11.7-16.6); Lymphocytes # 0.3 10^3/uL (0.8-4.8); Lymphocytes % 3.6 %; Mean Corpuscular HGB Conc 33.7 g/dL (30.0-36.0); Mean Corpuscular Hemoglobin 34.7 pg (28.0-34.0); Mean Corpuscular Volume 102.9 fl (80-94); Mean Platelet Volume 9.2 fL (7.4-10.4); Monocytes # 0.8 10^3/uL (0.2-0.9); Neutrophils # 8.03 10^3/uL (1.8-7.7); Neutrophils % 86.1 %; Nucleated Red Blood Cells % 0 %; Platelet Count 254 10^3/cmm (130-400); Red Blood Count 2.45 10^6/uL (4.1-5.3); Red Cell Distribution Width 14.2 % (12.1-15.1); White Blood Count 9.3 10^3/uL (4.0-10.0)
[2021-07-31 05:07] LABS: Alanine Aminotransferase < 5 U/L (0-41); Albumin Level 2.2 g/dL (3.5-5.2); Alkaline Phosphatase 65 IU/L (40-130); Anion Gap 10.1 (5-19); Aspartate Amino Transferase 10 U/L (0-40); Blood Urea Nitrogen 8 mg/dL (8-23); Calcium 8.8 mg/dL (8.5-10.5); Carbon Dioxide 30 mmol/L (22-29); Chloride 96 mmol/L (98-107); Globulin 2.5 g/dL (1.3-4.6); Glomerular Filtration Rate 165.4 mL/min (90-130); Glucose 104 mg/dL (65-115); Magnesium 1.8 mg/dL (1.7-2.3); Osmolality Calculated 273 mOsm/kg (285-295); Phosphorus 3.8 mg/dL (2.5-4.5); Potassium 4.1 mmol/L (3.5-5.1); Sodium 132 mmol/L (136-145); Total Bilirubin 0.6 mg/dL (0.15-1.2); Total Protein 4.7 g/dL (6.6-8.7)
--- NOTE | 2021-07-31 06:00 | ECG_ITS ---
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 Measurements Intervals [place] Rate: 75 P: 28 NH: 197 QRS: -24 QRSD: 75 T: 216 QT: 375 QTc: 419 Interpretive Statements SINUS RHYTHM WITH OCCASIONAL SUPRAVENTRICULAR PREMATURE COMPLEXES BORDERLINE LEFT AXIS DEVIATION [QRS AXIS < -20] LOW QRS VOLTAGE IN EXTREMITY LEADS [QRS DEFLECTION < 0.5 mV IN LIMB LEADS] NONSPECIFIC T-WAVE ABNORMALITY Compared to ECG 07/30/2021 08:42:27 T-wave abnormality now present Ectopic atrial tachycardia, multifocal no longer present ST (T wave) deviation no longer present Electronically Signed On 08-01-2021 9:23:03 CDT by Russel Castrejon M.D. [id number]
[2021-07-31] MEDS: dilTIAZem 60 mg Tablet PO ×3 (06:45→18:13)
[2021-07-31] MEDS: thiamine 100 mg Tablet PO (08:24)
[2021-07-31] MEDS: aspirin 81 mg EC Tablet PO (08:24)
[2021-07-31] MEDS: sotalol 80 mg Tablet PO ×2 (08:24→21:52)
[2021-07-31] MEDS: atorvastatin 40 mg Tablet 20 MG PO (08:24)
[2021-07-31] MEDS: cilostazol 100 mg Tablet 50 MG PO ×2 (08:25→18:13)
[2021-07-31] MEDS: multivitamin therapeutic Tablet 1 TAB PO (08:25)
[2021-07-31] MEDS: folic acid 1 mg Tablet PO (08:25)
[2021-07-31] MEDS: iron sucrose 200 MG in sodium chloride 0.9% (100 ml) 100 ML 220 MG IV (10:13)
[2021-07-31] MEDS: magnesium sulfate premix 2 GM/50 ML PIGGYBACK IV (10:14)
[2021-07-31] MEDS: FUROsemide 10 mg/mL SDV 4mL 40 MG IVP (11:14)
--- NOTE | 2021-07-31 13:13 | PM.PN ---
Subjective Subjective: Patient was seen this morning, complaining of wheezing, shortness of breath, is on 3 L, currently heart rate is well controlled, getting bolus feedings by his Vitals/I&O/Wt Last Vital Signs Temp 98.1 F 07/31/21 07:38 Pulse 102 H 07/31/21 12:17 Resp 18 07/31/21 12:17 BP 155/92 07/31/21 12:17 Pulse Ox 95 07/31/21 10:04 07/30/21 07/31/21 07/31/21 22:59 06:59 14:59 Intake Total 180 / 1126.7019 630 / 630 Output Total 750 / 750 400 / 1150 400 / 400 Balance -570 / 376.7019 -400 / -23.2981 230 / 230 Physical Exam Const: COMMON NORMALS: no acute distress and patient oriented x3 Resp: COMMON NORMALS: normal respiratory effort, No retractions and No use of accessory muscles AUSCULTATION: wheezes Cardio: COMMON NORMALS: regular rate, S1 normal heart sound present and S2 normal heart sound present RATE: regular rate RHYTHM: abnormal rhythm HEART SOUNDS: S1 normal heart sound present and S2 normal heart sound present GI: COMMON NORMALS: Normal to inspection, nondistended, normoactive bowel sounds present, Soft to palpation and non-tender PALPATION: Yes Soft to palpation Extremity: COMMON NORMALS: no pedal edema Neuro: COMMON NORMALS: patient oriented x3 Psych: COMMON NORMALS: mental status grossly normal Urinary Catheter Management: Kirk: Cath Placed During This Visit: yes Reason for Continuing Indwelling Catheter: Accurate Measurement of Urinary Output in Critically Ill Patients Urinary Catheter Date of Insertion: 07/26/21 Urinary Catheter Time of Insertion: 06:05 Data : 07/31/21 04:25 07/31/21 04:25 A&P Assessment and plan (1) Atrial fibrillation with RVR: Status: Acute (2) Dysphagia: Status: Acute (3) Fatigue: Status: Acute Qualifiers: Fatigue type: unspecified Qualified Code(s): R53.83 - Other fatigue (4) Malignant neoplasm nasopharynx: Status: Acute (5) Falls: Status: Acute (6) Acute anemia: Status: Acute (7) Protein calorie malnutrition: Status: Acute (8) Physical deconditioning: Status: Acute (9) CHF exacerbation: Status: Acute Plan Diastolic CHF exacerbation, hypoxia, new onset -Likely secondary fluid overload, A. fib -On 3 L, wheezing, shortness of breath -We will give 1 dose of Lasix, monitor respiratory status A. 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 Large bulky heterogeneously enhancing mass compatible with neoplasm involving the posterior nasopharynx extending to involve the hard and soft palate and uvula. This measures approximately 4.6 x 6.0 x 6.5 cm. Findings likely due to nasopharyngeal carcinoma. 2.? Associated invasion into the RIGHT greater than LEFT maxilla. This erodes the posterior wall of the RIGHT maxillary sinus with invasion into the RIGHT maxillary sinus. Erosion of the RIGHT greater than LEFT pterygoid plates with extension into the RIGHT elementary instructional coach space 3.? Neoplasm extends posteriorly to the RIGHT condylar fossa posterior to the mandibular condyle. Loss of the prevertebral fat plane in the prevertebral soft tissues. 4.? Neoplasm extends into the RIGHT pterygopalatine fossa and sphenopalatine foramen. This extends laterally into the pterygomaxillary fissure. Extension along the inferior orbital fissure anteriorly foramen rotundum posteriorly. Expansion of vidian canal on the RIGHT. 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 5.? Above findings can be further evaluated with face CT. In addition recommend staging with PET/CT. 6.? Numerous bilateral bilateral metastatic lymph nodes largest in the LEFT measuring 1.9 x 1.5 x 2.1 cm posterior to the LEFT submandibular gland. Numerous smaller enhancing lymph nodes throughout both cervical chains. Enhancing 7 mm sublingual lymph node. 7.? Opacification RIGHT greater than LEFT mastoid air cells. Plan; -Status post port placement -Status post PEG tube placement, on bolus tube feedings -N.p.o. sips and chips -Full code -SCDs for DVT prophylaxis, Lovenox relatively contraindicated given anemia Dysphagia -Has nasopharyngeal carcinoma as above -Concerns for aspiration Plan -chest x-ray no aspiration -Have speech therapy evaluate patient,clears, -Aspiration precautions Poor appetite, weight loss, nasopharyngeal cancer -Receiving bolus tube feedings ? Acute anemia -combination of iron deficiency and folate deficiency -Baseline hemoglobin unknown, no history of GI bleeds, no history of blood transfusions -folate and iron defecient -1 dose of Venofer -Stool Hemoccult -Protonix, Carafate -Monitor hemodynamics to monitor for bloody or black stools Hypotension -given stress dose steroid -getting fluids, temporary response, chronically hypotensive -Not responsive to midodrine -likely secondary to low body mass History of alcohol consumption, CIWA score, thiamine, banana bag Protein calorie malnutrition, consult nutrition Physical deconditioning, PT OT Hypokalemia, hypomagnesemia, hypophosphatemia will replace today Chest pain, nonspecific, EKG does show T wave inversions in anterior leads, on aspirin, statin, anticoagulation relatively contraindicated, beta-mina relatively contraindicated, cardiac echocardiogram ordered Attestations Medical Necessity Statement*: Gross hospitalization for fluid overload, A. fib with RVR, hypokalemia, hypomagnesemia, hypophosphatemia, deconditioning, hypoxia, on 3 L, current diuresis Coding Level of Care Code Acute Panel Maker for Chg Fwd Diagnoses Atrial fibrillation with RVR I48.91 Dysphagia R13.10 Fatigue R53.83 Fatigue type: unspecified Malignant neoplasm nasopharynx C11.9 Falls W19.XXXA Acute anemia D64.9 Protein calorie malnutrition E46 Physical deconditioning R53.81 CHF exacerbation I50.9
[2021-07-31] MEDS: sucralfate 1 gm Tablet PO ×3 (13:16→21:52)
--- NOTE | 2021-07-31 16:57 | PC.NURSE ---
@1615, assessed pt BP 86/60, pt does not feel lightheaded or dizzy. Notified MD earlier regarding BP lasix given as ordered, pt had good urine output for lasix. Pt does complain of feeling bloated and refused his lunchtime tube feeding - his residual was 170 ml.
[2021-07-31] MEDS: pantoprazole 40 mg SDV IVP (21:52)
[2021-07-31] MEDS: trazodone 50 mg Tablet 25 MG PO (21:52)
[2021-07-31] MEDS: sodium chloride 0.9% 1,000 ML 999 ML IV (23:07)
--- NOTE | 2021-07-31 23:12 | PC.NURSE ---
Pt was found with BP of 72/52. MD Baudilio was informed of hypotension. 1L NS order by .
[2021-08-01] VITALS (19 sets, daily range): BP systolic 73–102; BP diastolic 53–66; PULSE 68–85; RESP 12–20; TEMP 36.4–36.8; O2SAT 90–99
[2021-08-01] MEDS: dilTIAZem 60 mg Tablet PO ×2 (01:28→06:34)
[2021-08-01 03:20] LABS: Basophils % 0.1 %; Eosinophils # 0.1 10^3/uL (0.0-0.8); Eosinophils % 0.8 %; Hematocrit 24.2 % (42.0-52.0); Hemoglobin 7.9 g/dL (11.7-16.6); Lymphocytes # 0.4 10^3/uL (0.8-4.8); Mean Corpuscular HGB Conc 32.6 g/dL (30.0-36.0); Mean Corpuscular Hemoglobin 34.3 pg (28.0-34.0); Mean Corpuscular Volume 105.2 fl (80-94); Mean Platelet Volume 9.3 fL (7.4-10.4); Monocytes % 11.3 %; Neutrophils % 82.2 %; Nucleated Red Blood Cells % 0 %; Platelet Count 262 10^3/cmm (130-400); Red Cell Distribution Width 14.4 % (12.1-15.1); White Blood Count 8.4 10^3/uL (4.0-10.0)
[2021-08-01 03:50] LABS: NT Pro B Type Natriuretic Pept 1777 pg/mL (0-125); Procalcitonin 0.15 ng/mL (0-0.5)
[2021-08-01 04:01] LABS: Alanine Aminotransferase 6 U/L (0-41); Albumin Level 2.1 g/dL (3.5-5.2); Alkaline Phosphatase 66 IU/L (40-130); Anion Gap 13.8 (5-19); Aspartate Amino Transferase 13 U/L (0-40); Blood Urea Nitrogen 10 mg/dL (8-23); C Reactive Protein 103.8 mg/L (0.0-4.9); Calcium 8.5 mg/dL (8.5-10.5); Carbon Dioxide 27 mmol/L (22-29); Chloride 94 mmol/L (98-107); Globulin 2.4 g/dL (1.3-4.6); Glomerular Filtration Rate 165.4 mL/min (90-130); Glucose 108 mg/dL (65-115); Magnesium 1.5 mg/dL (1.7-2.3); Osmolality Calculated 272 mOsm/kg (285-295); Phosphorus 3.5 mg/dL (2.5-4.5); Potassium 3.8 mmol/L (3.5-5.1); Sodium 131 mmol/L (136-145); Total Bilirubin 0.7 mg/dL (0.15-1.2); Total Protein 4.5 g/dL (6.6-8.7)
--- NOTE | 2021-08-01 04:35 | PC.NURSE ---
Pt resting in bed and talking to staff. Pt resp even and non-labored no distress or sob noted. Pt had no c/o pain or discomfort at the present time. No needs voiced. Call light in reach. Will cont to monitor.
--- NOTE | 2021-08-01 06:00 | ECG_ITS ---
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 Measurements Intervals [place] Rate: 73 P: [place]: QRS: -28 QRSD: 75 T: 216 QT: 381 QTc: 420 Interpretive Statements Sinus rhythm with occasional premature supraventricular complexes BORDERLINE LEFT AXIS DEVIATION [QRS AXIS < -20] LOW QRS VOLTAGE IN EXTREMITY LEADS [QRS DEFLECTION < 0.5 mV IN LIMB LEADS] NONSPECIFIC T-WAVE ABNORMALITY Compared to ECG 07/31/2021 06:02:44 T-wave abnormality still present Electronically Signed On 08-01-2021 9:27:09 CDT by Russel Castrejon M.D. [id number]
[2021-08-01] MEDS: sucralfate 1 gm Tablet PO ×4 (06:34→20:30)
--- NOTE | 2021-08-01 08:25 | PC.SOCIAL ---
IMM Update pg 2 of IMM updated and reviewed w/ patient. Copy provided and Copy in chart updated.
--- NOTE | 2021-08-01 08:36 | XR_ITS ---
WS: [id number] CHEST XRAY TECHNIQUE: Portable chest. CLINICAL INFORMATION: sob COMPARISON: July 25, 2021 FINDINGS: RIGHT Port-A-Cath with tip in the distal SVC. Free air in the upper abdomen similar to the prior CT July 28, 2021. Gastrostomy tube. Heart: Normal cardiac silhouette. Lungs: Small bilateral pleural effusions with slight atelectasis in the lung bases. No focal consolid ation. Chronic emphysematous changes. Bones: Normal visualized bony structures. XR/XR chest 1V portable [id number] IMPRESSION: 1. Small bilateral pleural effusions LEFT greater than RIGHT with slight atele ctasis in the lung bases. 2. RIGHT Port-A-Cath tip in SVC. 3. Free air in the upper abdomen similar in appearance to the prior CT July. Gastrostomy tube.
[2021-08-01] MEDS: folic acid 1 mg Tablet PO (09:10)
[2021-08-01] MEDS: aspirin 81 mg EC Tablet PO (09:10)
[2021-08-01] MEDS: sotalol 80 mg Tablet PO ×2 (09:10→20:30)
[2021-08-01] MEDS: cilostazol 100 mg Tablet 50 MG PO ×2 (09:10→17:19)
[2021-08-01] MEDS: thiamine 100 mg Tablet PO (09:10)
[2021-08-01] MEDS: multivitamin therapeutic Tablet 1 TAB PO (09:10)
[2021-08-01] MEDS: atorvastatin 40 mg Tablet 20 MG PO (09:11)
[2021-08-01] MEDS: magnesium sulfate premix 4 GM/100 ML PREMIX IV (09:11)
--- NOTE | 2021-08-01 10:00 | PC.NURSE ---
Spoke with physician regarding concerns for administering lasix IVP 40mg. Patients blood pressures have been low throughout the night. Lowest pressure reading was 74/54. Most recent pressure is 84/60. Physician said to give 20mg now, and wait about an hour to give another 20mg.
[2021-08-01] MEDS: FUROsemide 10 mg/mL SDV 2mL 20 MG IVP (10:46)
--- NOTE | 2021-08-01 12:00 | PC.NURSE ---
Lunch feeding was held due to residual amount greater than patient can tolerate. Spoke with physician regarding patients blood pressure. Nurse will hold 12pm dose of cardizem. Physician ordered to give potassium after blood transfusion is complete.
--- NOTE | 2021-08-01 12:09 | P.PN_ITS ---
Subjective Subjective: Patient was seen this morning, on 4 L, tells me that he is breathing has improved, continues to feel decondition, feels generalized weakness, no chest pain, no palpitations Vitals/I&O/Wt Last Vital Signs Temp 98.2 F 08/01/21 07:37 Pulse 70 08/01/21 11:13 Resp 14 08/01/21 11:13 BP 82/58 08/01/21 11:13 Pulse Ox 97 08/01/21 11:13 07/31/21 08/01/21 08/01/21 22:59 06:59 14:59 Intake Total 640 / 1520 1000 / 2520 694 / 694 Output Total 650 / 2250 550 / 2800 Balance -10 / -730 450 / -280 694 / 694 Physical Exam Const: COMMON NORMALS: no acute distress and patient oriented x3 HENMT: COMMON NORMALS: normocephalic HEAD & SCALP: normocephalic Resp: COMMON NORMALS: normal respiratory effort, No retractions and No use of accessory muscles AUSCULTATION: crackles Cardio: COMMON NORMALS: regular rate, regular rhythm, S1 normal heart sound present and S2 normal heart sound present RATE: regular rate RHYTHM: regular rhythm HEART SOUNDS: S1 normal heart sound present and S2 normal heart sound present GI: COMMON NORMALS: Normal to inspection, nondistended, normoactive bowel sounds present, Soft to palpation, non-tender and No hepatosplenomegaly present PALPATION: Yes Soft to palpation and Yes No hepatosplenomegaly present Extremity: COMMON NORMALS: no pedal edema Neuro: COMMON NORMALS: patient oriented x3 Psych: COMMON NORMALS: mental status grossly normal Urinary Catheter Management: Kirk: Cath Placed During This Visit: yes Reason for Continuing Indwelling Catheter: Accurate Measurement of Urinary Output in Critically Ill Patients Urinary Catheter Date of Insertion: 07/26/21 Urinary Catheter Time of Insertion: 06:05 Data : 08/01/21 02:31 08/01/21 02:31 A&P Assessment and plan (1) Atrial fibrillation with RVR: Status: Acute (2) Dysphagia: Status: Acute (3) Fatigue: Status: Acute Qualifiers: Fatigue type: unspecified Qualified Code(s): R53.83 - Other fatigue (4) Malignant neoplasm nasopharynx: Status: Acute (5) Falls: Status: Acute (6) Acute anemia: Status: Acute (7) Protein calorie malnutrition: Status: Acute (8) Physical deconditioning: Status: Acute (9) CHF exacerbation: Status: Acute Plan Deconditioning, protein calorie malnutrition, PT OT Diastolic CHF exacerbation, hypoxia, new onset -Likely secondary fluid overload, Deidre maher -On 4 L, has crackles -We will give 1 dose of Lasix, monitor respiratory status A. 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 Large bulky heterogeneously enhancing mass compatible with neoplasm involving the posterior nasopharynx extending to involve the hard and soft palate and uvula. This measures approximately 4.6 x 6.0 x 6.5 cm. Findings likely due to nasopharyngeal carcinoma. 2.? Associated invasion into the RIGHT greater than LEFT maxilla. This erodes the posterior wall of the RIGHT maxillary sinus with invasion into the RIGHT maxillary sinus. Erosion of the RIGHT greater than LEFT pterygoid plates with extension into the RIGHT crematory operator space 3.? Neoplasm extends posteriorly to the RIGHT condylar fossa posterior to the mandibular condyle. Loss of the prevertebral fat plane in the prevertebral soft tissues. 4.? Neoplasm extends into the RIGHT pterygopalatine fossa and sphenopalatine foramen. This extends laterally into the pterygomaxillary fissure. Extension along the inferior orbital fissure anteriorly foramen rotundum posteriorly. Expansion of vidian canal on the RIGHT. 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 5.? Above findings can be further evaluated with face CT. In addition recommend staging with PET/CT. 6.? Numerous bilateral bilateral metastatic lymph nodes largest in the LEFT measuring 1.9 x 1.5 x 2.1 cm posterior to the LEFT submandibular gland. Numerous smaller enhancing lymph nodes throughout both cervical chains. Enhancing 7 mm sublingual lymph node. 7.? Opacification RIGHT greater than LEFT mastoid air cells. Plan; -Status post port placement -Status post PEG tube placement, on bolus tube feedings -N.p.o. sips and chips -Full code -SCDs for DVT prophylaxis, Lovenox relatively contraindicated given anemia Dysphagia -Has nasopharyngeal carcinoma as above -Concerns for aspiration Plan -chest x-ray no aspiration -Have speech therapy evaluate patient,clears, -Aspiration precautions Poor appetite, weight loss, nasopharyngeal cancer -Receiving bolus tube feedings ? Acute anemia -combination of iron deficiency and folate deficiency -Baseline hemoglobin unknown, no history of GI bleeds, no history of blood transfusions -folate and iron defecient -1 dose of Venofer -Stool Hemoccult -Protonix, Carafate -Monitor hemodynamics to monitor for bloody or black stools -Hemoglobin 7.9, will transfuse 1 unit PRBC Hypotension -given stress dose steroid -getting fluids, temporary response, chronically hypotensive -Not responsive to midodrine -likely secondary to low body mass History of alcohol consumption, CIWA score, thiamine, banana bag Protein calorie malnutrition, consult nutrition Physical deconditioning, PT OT Hypokalemia, hypomagnesemia, hypophosphatemia will replace today Chest pain, nonspecific, EKG does show T wave inversions in anterior leads, on aspirin, statin, anticoagulation relatively contraindicated, beta-mina relatively contraindicated, cardiac echocardiogram ordered Attestations Medical Necessity Statement*: Patient requires hospitalization for fluid overload, atrial fibrillation, electrolyte abnormalities, and now with anemia, Hemoccult 7.9 requiring transfusion Coding Level of Care Code Acute Chairman & Chief Executive Officer for Chg Fwd Diagnoses Atrial fibrillation with RVR I48.91 Dysphagia R13.10 Fatigue R53.83 Fatigue type: unspecified Malignant neoplasm nasopharynx C11.9 Falls W19.XXXA Acute anemia D64.9 Protein calorie malnutrition E46 Physical deconditioning R53.81 CHF exacerbation I50.9
[2021-08-01] MEDS: sodium chloride 0.9% 250 ML 999 ML IV (13:01)
--- NOTE | 2021-08-01 15:38 | PC.OT ---
OT TREATMENT ATTEMPTED 3X TODAY; PATIENT SLEEPING SOUNDLY. WILL ATTEMPT AGAIN AT A LATER TIME.
--- NOTE | 2021-08-01 18:02 | PC.NURSE ---
Physician Orders Hold 1800 pm dose 40mg IVP lasix.
[2021-08-01] MEDS: potassium chloride ER 20 mEq Tablet 40 MEQ PO (20:30)
[2021-08-01] MEDS: pantoprazole 40 mg SDV IVP (20:30)
[2021-08-01] MEDS: trazodone 50 mg Tablet 25 MG PO (20:30)
[2021-08-02] VITALS (14 sets, daily range): BP systolic 100–129; BP diastolic 65–85; PULSE 71–98; RESP 12–18; TEMP 36.4–36.8; O2SAT 67–100
[2021-08-02 03:42] LABS: Basophils % 0.2 %; Eosinophils # 0.1 10^3/uL (0.0-0.8); Eosinophils % 1.4 %; Hematocrit 27.8 % (42.0-52.0); Hemoglobin 9.6 g/dL (11.7-16.6); Lymphocytes # 0.5 10^3/uL (0.8-4.8); Lymphocytes % 5.6 %; Mean Corpuscular HGB Conc 34.5 g/dL (30.0-36.0); Mean Corpuscular Hemoglobin 34.2 pg (28.0-34.0); Mean Corpuscular Volume 98.9 fl (80-94); Mean Platelet Volume 9.2 fL (7.4-10.4); Monocytes % 12.5 %; Neutrophils # 6.64 10^3/uL (1.8-7.7); Neutrophils % 79.9 %; Nucleated Red Blood Cells % 0 %; Platelet Count 280 10^3/cmm (130-400); Red Blood Count 2.81 10^6/uL (4.1-5.3); Red Cell Distribution Width 15.9 % (12.1-15.1); White Blood Count 8.3 10^3/uL (4.0-10.0)
[2021-08-02 04:11] LABS: NT Pro B Type Natriuretic Pept 924 pg/mL (0-125); Procalcitonin 0.12 ng/mL (0-0.5)
[2021-08-02 04:24] LABS: Alanine Aminotransferase 7 U/L (0-41); Albumin Level 2.3 g/dL (3.5-5.2); Alkaline Phosphatase 66 IU/L (40-130); Anion Gap 12.1 (5-19); Aspartate Amino Transferase 13 U/L (0-40); Blood Urea Nitrogen 9 mg/dL (8-23); C Reactive Protein 77.8 mg/L (0.0-4.9); Calcium 8.6 mg/dL (8.5-10.5); Carbon Dioxide 28 mmol/L (22-29); Chloride 93 mmol/L (98-107); Globulin 2.4 g/dL (1.3-4.6); Glomerular Filtration Rate 165.4 mL/min (90-130); Glucose 104 mg/dL (65-115); Magnesium 1.7 mg/dL (1.7-2.3); Osmolality Calculated 267 mOsm/kg (285-295); Phosphorus 4.1 mg/dL (2.5-4.5); Potassium 4.1 mmol/L (3.5-5.1); Sodium 129 mmol/L (136-145); Total Bilirubin 0.8 mg/dL (0.15-1.2); Total Protein 4.7 g/dL (6.6-8.7)
--- NOTE | 2021-08-02 06:00 | ECG_ITS ---
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 Measurements Intervals [place] Rate: 82 P: 44 OK: 183 QRS: -52 QRSD: 76 T: -84 QT: 459 QTc: 538 Interpretive Statements SINUS RHYTHM WITH FREQUENT PREMATURE COMPLEXES LOW QRS VOLTAGE IN EXTREMITY LEADS [QRS DEFLECTION < 0.5 mV IN LIMB LEADS] LEFT ANTERIOR FASCICULAR BLOCK [QRS AXIS <= -45, QR IN I, RS IN II] MODERATE T-WAVE ABNORMALITY, CONSIDER ANTEROLATERAL ISCHEMIA Compared to ECG 08/01/2021 05:59:50 Left anterior fascicular block now present Possible ischemia now present Atrial premature complex(es) no longer present T-wave abnormality still present Electronically Signed On 08-03-2021 7:17:25 CDT by Michelle Graves M.D. [id number]
[2021-08-02] MEDS: magnesium sulfate premix 4 GM/100 ML PREMIX IV (09:18)
[2021-08-02] MEDS: atorvastatin 40 mg Tablet 20 MG PO (09:24)
[2021-08-02] MEDS: cilostazol 100 mg Tablet 50 MG PO ×2 (09:24→18:29)
[2021-08-02] MEDS: aspirin 81 mg EC Tablet PO (09:24)
[2021-08-02] MEDS: folic acid 1 mg Tablet PO (09:25)
[2021-08-02] MEDS: sotalol 80 mg Tablet PO ×2 (09:25→23:00)
[2021-08-02] MEDS: thiamine 100 mg Tablet PO (09:25)
[2021-08-02] MEDS: multivitamin therapeutic Tablet 1 TAB PO (09:25)
--- NOTE | 2021-08-02 11:41 | PM.PN ---
Subjective Subjective: Patient was seen this morning, he had 4 L, he tells me that he is doing well, continues to have complaints of weakness no fevers, no chills Vitals/I&O/Wt Last Vital Signs Temp 97.5 F L 08/02/21 07:37 Pulse 81 08/02/21 07:37 Resp 14 08/02/21 07:37 BP 109/82 08/02/21 07:37 Pulse Ox 94 08/02/21 07:37 08/01/21 08/02/21 08/02/21 22:59 06:59 14:59 Intake Total 346.0909 / 1040.0909 360 / 360 Output Total 500 / 1800 500 / 500 Balance 346.0909 / -259.9091 -500 / -759.9091 -140 / -140 Physical Exam Const: COMMON NORMALS: no acute distress and patient oriented x3 NUTRITIONAL APPEARANCE: cachectic and thin Resp: COMMON NORMALS: normal respiratory effort, No retractions, No use of accessory muscles and clear to auscultation bilaterally AUSCULTATION: clear to auscultation bilaterally Cardio: COMMON NORMALS: regular rate, regular rhythm, S1 normal heart sound present and S2 normal heart sound present RATE: regular rate RHYTHM: regular rhythm HEART SOUNDS: S1 normal heart sound present and S2 normal heart sound present GI: COMMON NORMALS: Normal to inspection, nondistended, normoactive bowel sounds present, Soft to palpation and non-tender PALPATION: Yes Soft to palpation Extremity: COMMON NORMALS: no pedal edema Neuro: COMMON NORMALS: patient oriented x3 Psych: COMMON NORMALS: mental status grossly normal Urinary Catheter Management: Kirk: Cath Placed During This Visit: yes Reason for Continuing Indwelling Catheter: Acute Urinary Retention or Obstruction Urinary Catheter Date of Insertion: 07/26/21 Urinary Catheter Time of Insertion: 06:05 Data : 08/02/21 02:57 08/02/21 02:57 A&P Assessment and plan (1) Atrial fibrillation with RVR: Status: Acute (2) Dysphagia: Status: Acute (3) Fatigue: Status: Acute Qualifiers: Fatigue type: unspecified Qualified Code(s): R53.83 - Other fatigue (4) Malignant neoplasm nasopharynx: Status: Acute (5) Falls: Status: Acute (6) Acute anemia: Status: Acute (7) Protein calorie malnutrition: Status: Acute (8) Physical deconditioning: Status: Acute (9) CHF exacerbation: Status: Acute Plan Deconditioning, protein calorie malnutrition, PT OT Diastolic CHF exacerbation, hypoxia, new onset -Likely secondary fluid overload, A. fib -On 4 L, no crackles on exam today -Continue to monitor A. 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 Large bulky heterogeneously enhancing mass compatible with neoplasm involving the posterior nasopharynx extending to involve the hard and soft palate and uvula. This measures approximately 4.6 x 6.0 x 6.5 cm. Findings likely due to nasopharyngeal carcinoma. 2.? Associated invasion into the RIGHT greater than LEFT maxilla. This erodes the posterior wall of the RIGHT maxillary sinus with invasion into the RIGHT maxillary sinus. Erosion of the RIGHT greater than LEFT pterygoid plates with extension into the RIGHT product operations associate space 3.? Neoplasm extends posteriorly to the RIGHT condylar fossa posterior to the mandibular condyle. Loss of the prevertebral fat plane in the prevertebral soft tissues. 4.? Neoplasm extends into the RIGHT pterygopalatine fossa and sphenopalatine foramen. This extends laterally into the pterygomaxillary fissure. Extension along the inferior orbital fissure anteriorly foramen rotundum posteriorly. Expansion of vidian canal on the RIGHT. 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 5.? Above findings can be further evaluated with face CT. In addition recommend staging with PET/CT. 6.? Numerous bilateral bilateral metastatic lymph nodes largest in the LEFT measuring 1.9 x 1.5 x 2.1 cm posterior to the LEFT submandibular gland. Numerous smaller enhancing lymph nodes throughout both cervical chains. Enhancing 7 mm sublingual lymph node. 7.? Opacification RIGHT greater than LEFT mastoid air cells. Plan; -Status post port placement -Status post PEG tube placement, on bolus tube feedings -N.p.o. sips and chips -Full code -SCDs for DVT prophylaxis, Lovenox relatively contraindicated given anemia Dysphagia -Has nasopharyngeal carcinoma as above -Concerns for aspiration Plan -chest x-ray no aspiration -Have speech therapy evaluate patient,clears, -Aspiration precautions Poor appetite, weight loss, nasopharyngeal cancer -Receiving bolus tube feedings ? Acute anemia -combination of iron deficiency and folate deficiency -Baseline hemoglobin unknown, no history of GI bleeds, no history of blood transfusions -folate and iron defecient -1 dose of Venofer -Stool Hemoccult -Protonix, Carafate -Monitor hemodynamics to monitor for bloody or black stools -Hemoglobin 9.6, status post 1 unit PRBC Hypotension -given stress dose steroid -getting fluids, temporary response, chronically hypotensive -Not responsive to midodrine -likely secondary to low body mass History of alcohol consumption, CIWA score, thiamine, banana bag Protein calorie malnutrition, consult nutrition Physical deconditioning, PT OT Hypokalemia, hypomagnesemia, hypophosphatemia will replace today Chest pain, nonspecific, EKG does show T wave inversions in anterior leads, on aspirin, statin, anticoagulation relatively contraindicated, beta-mina relatively contraindicated I was told by nursing staff that patient's is incarcerated, will have to teach on how to take care of patient, and with bolus tube feedings, potential discharge in the next 24 to 48 hours Attestations Medical Necessity Statement*: Patient requires hospitalization for deconditioning, electrolyte abnormalities, fluid overload Coding Level of Care Code Acute Cutting Table Operator for Chg Fwd Diagnoses Atrial fibrillation with RVR I48.91 Dysphagia R13.10 Fatigue R53.83 Fatigue type: unspecified Malignant neoplasm nasopharynx C11.9 Falls W19.XXXA Acute anemia D64.9 Protein calorie malnutrition E46 Physical deconditioning R53.81 CHF exacerbation I50.9
[2021-08-02] MEDS: sucralfate 1 gm Tablet PO ×2 (12:37→18:29)
--- NOTE | 2021-08-02 16:35 | PC.OT ---
OT TREATMENT ATTEMPTED IN A.M.; PATIENT STATES HE IS TIRED DUE TO PARTICIPATION IN P.T. REQUESTS THAT I RETURN LATER. OT TREATMENT ATTEMPTED AGAIN LATER TODAY AND PATIENT IS SLEEPING SOUNDLY.
[2021-08-02] MEDS: pantoprazole 40 mg SDV IVP (23:00)
[2021-08-02] MEDS: trazodone 50 mg Tablet 25 MG PO (23:00)
[2021-08-03] VITALS (9 sets, daily range): BP systolic 92–130; BP diastolic 63–89; PULSE 68–81; RESP 10–16; TEMP 36.4–36.7; O2SAT 88–100
[2021-08-03 03:01] LABS: Basophils % 0.3 %; Eosinophils # 0.1 10^3/uL (0.0-0.8); Eosinophils % 1.3 %; Hematocrit 31.3 % (42.0-52.0); Hemoglobin 10.5 g/dL (11.7-16.6); Lymphocytes # 0.5 10^3/uL (0.8-4.8); Lymphocytes % 4.8 %; Mean Corpuscular HGB Conc 33.5 g/dL (30.0-36.0); Mean Corpuscular Hemoglobin 34.2 pg (28.0-34.0); Mean Platelet Volume 8.8 fL (7.4-10.4); Monocytes % 10.9 %; Neutrophils # 7.72 10^3/uL (1.8-7.7); Neutrophils % 82.3 %; Nucleated Red Blood Cells % 0 %; Platelet Count 288 10^3/cmm (130-400); Red Blood Count 3.07 10^6/uL (4.1-5.3); Red Cell Distribution Width 14.8 % (12.1-15.1); White Blood Count 9.4 10^3/uL (4.0-10.0)
[2021-08-03 03:37] LABS: NT Pro B Type Natriuretic Pept 898 pg/mL (0-125)
[2021-08-03 03:57] LABS: Alanine Aminotransferase 9 U/L (0-41); Albumin Level 2.3 g/dL (3.5-5.2); Alkaline Phosphatase 63 IU/L (40-130); Anion Gap 10.9 (5-19); Aspartate Amino Transferase 14 U/L (0-40); Blood Urea Nitrogen 8 mg/dL (8-23); Calcium 9.1 mg/dL (8.5-10.5); Carbon Dioxide 30 mmol/L (22-29); Chloride 94 mmol/L (98-107); Globulin 3.2 g/dL (1.3-4.6); Glomerular Filtration Rate 213.9 mL/min (90-130); Glucose 111 mg/dL (65-115); Osmolality Calculated 271 mOsm/kg (285-295); Phosphorus 3.3 mg/dL (2.5-4.5); Potassium 3.9 mmol/L (3.5-5.1); Sodium 131 mmol/L (136-145); Total Bilirubin 0.6 mg/dL (0.15-1.2); Total Protein 5.5 g/dL (6.6-8.7)
[2021-08-03] MEDS: cilostazol 100 mg Tablet 50 MG PO (09:17)
[2021-08-03] MEDS: aspirin 81 mg EC Tablet PO (09:17)
[2021-08-03] MEDS: thiamine 100 mg Tablet PO (09:17)
[2021-08-03] MEDS: multivitamin therapeutic Tablet 1 TAB PO (09:17)
[2021-08-03] MEDS: sotalol 80 mg Tablet PO (09:17)
[2021-08-03] MEDS: atorvastatin 40 mg Tablet 20 MG PO (09:18)
[2021-08-03] MEDS: sucralfate 1 gm Tablet PO ×2 (09:18→12:32)
[2021-08-03] MEDS: folic acid 1 mg Tablet PO (09:18)
--- NOTE | 2021-08-03 10:59 | P.DS_ITS ---
Discharge Providers Date of Admission: 07/25/21 14:58 Date of Discharge: August 03, 2021 Attending Provider at Admission: Pantera Miramontes MD Attending Provider at Discharge: Byron Angelo MD Primary Care Provider: Estela Leone Diagnoses at Discharge Discharge Diagnosis (1) Atrial fibrillation with RVR: Status: Acute (2) Dysphagia: Status: Acute (3) Fatigue: Status: Acute Qualifiers: Fatigue type: unspecified Qualified Code(s): R53.83 - Other fatigue (4) Malignant neoplasm nasopharynx: Status: Acute (5) Falls: Status: Acute (6) Acute anemia: Status: Acute (7) Protein calorie malnutrition: Status: Acute (8) Physical deconditioning: Status: Acute (9) CHF exacerbation: Status: Acute Reason for Visit Reason for Visit: head and neck cancer Hospital Course Hospital Course Kareem Morrissey is a 66 year old male with a past medical history of CAD, no history of stenting, but tells me he has had heart attacks, history of COPD, history of CVA, history of hypertension, history of peripheral arterial disease, history of bradycardia, who presents to [facility] due to weakness fatigue, dehydration concerns Patient presents [facility], newly diagnosed squamous cell carcinoma of the nasopharynx, required PEG tube placement, port placement. Tolerated procedure well, discharged with close follow-up with general surgery as outpatient. Patient had a prolonged hospital course complicated by: -A. fib with RVR, with hypotension, requiring multiple regimens of rate control and rhythm control. Patient clinically improved with sotalol 80 twice daily, QTC within normal limits, discharged with sotalol 80 twice daily with close follow-up with cardiology as outpatient. Patient was not discharged with anticoagulation and due to acute anemia, discharged on is on aspirin, hospice all Dysphagia, secondary nasopharyngeal cancer, kept n.p.o., discharged with PEG tube feedings -bolus recommendations for tube feeding. Recommend Jevity 1.2, 6 x 237 mls/day. This works out nicely to 2 x 237 mls of Jevity 1.2 at breakfast, lunch and dinner, with 60 ml flushes before and after -with additional flushes of free water 120 mls Q12H For acute anemia, likely a combination iron deficiency anemia, folic acid deficiency, required IV Venofer during hospitalization, did require 1 unit PRBC, discharged with close follow-up with hematology oncology as outpatient Did have chronic low blood pressures during hospitalization, likely secondary to low body mass Protein calorie malnutrition, PEG tube feedings Physical deconditioning, discharged with home health care Had hypokalemia, hypomagnesemia, hypophosphatemia, requiring IV replacement during hospitalization, discharged with PEG tube replacement Acute hypoxia secondary to diastolic CHF, discharged with 3 L oxygen therapy, CTA negative for pulmonary emboli, bilateral lower extremity ultrasound negative for DVT Physical Exam Const: COMMON NORMALS: no acute distress and patient oriented x3 Resp: COMMON NORMALS: normal respiratory effort, No retractions, No use of accessory muscles and clear to auscultation bilaterally AUSCULTATION: clear to auscultation bilaterally Cardio: COMMON NORMALS: regular rate, regular rhythm, S1 normal heart sound present and S2 normal heart sound present RATE: regular rate RHYTHM: regular rhythm HEART SOUNDS: S1 normal heart sound present and S2 normal heart sound present GI: COMMON NORMALS: Normal to inspection, nondistended, normoactive bowel sounds present, Soft to palpation, non-tender and No hepatosplenomegaly present PALPATION: Yes Soft to palpation and Yes No hepatosplenomegaly present Extremity: COMMON NORMALS: no pedal edema Neuro: COMMON NORMALS: patient oriented x3 Psych: COMMON NORMALS: mental status grossly normal Urinary Catheter Management: Kirk: Cath Placed During This Visit: yes, but has since been removed by the nurse Reason for Continuing Indwelling Catheter: Acute Urinary Retention or Obstruction Urinary Catheter Date of Insertion: 07/26/21 Urinary Catheter Time of Insertion: 06:05 Date Urinary Catheter Removed: 08/02/21 Time Urinary Catheter Discontinued: 10:00 Discharge Data Studies Completed and Pending Completed Studies During Hospitalization Category Date Time Status CT angio chest PE protcl [id number] Routine Cat Scan 07/28/21 09:44 Completed XR chest 1V portable [id number] Routine Exams 08/01/21 08:36 Completed XR chest 1V portable [id number] Stat Exams 07/25/21 15:52 Completed CV. echo complete* [id number] Routine Ultrasound 07/28/21 07:56 Completed US venous duplex lower extremity bilat [CV venous Ultrasound 07/28/21 09:07 [place] [id number]] Routine Pending at discharge Category Date Time Status ES surgery / GI images Routine Exams 07/26/21 10:59 Taken Radiology Impressions Chest CTA 07/28/21 09:44 IMPRESSION: 1. No sign of acute PE. 2. Posterior bilateral pleural effusions with compressive atelectasis of both lower lobes. 3. Pneumoperitoneum noted. Additional findings as indicated above. Chest X-Ray 08/01/21 08:36 IMPRESSION: 1. Small bilateral pleural effusions LEFT greater than RIGHT with slight atelectasis in the lung bases. 2. RIGHT Port-A-Cath tip in SVC. 3. Free air in the upper abdomen similar in appearance to the prior CT July 28, 2021. Gastrostomy tube. Laboratory Results WBC 9.4 10^3/uL (4.0-10.0) 08/03/21 02:34 RBC 3.07 10^6/uL (4.1-5.3) L 08/03/21 02:34 Hgb 10.5 g/dL (11.7-16.6) L 08/03/21 02:34 Hct 31.3 % (42.0-52.0) L 08/03/21 02:34 MCV 102.0 fl (80-94) H 08/03/21 02:34 MCH 34.2 pg (28.0-34.0) H 08/03/21 02:34 MCHC 33.5 g/dL (30.0-36.0) 08/03/21 02:34 RDW 14.8 % (12.1-15.1) 08/03/21 02:34 Plt Count 288 10^3/cmm (130-400) 08/03/21 02:34 MPV 8.8 fL (7.4-10.4) 08/03/21 02:34 Neut % (Auto) 82.3 % 08/03/21 02:34 Lymph % (Auto) 4.8 % 08/03/21 02:34 [place] % (Auto) 10.9 % 08/03/21 02:34 Eos % (Auto) 1.3 % 08/03/21 02:34 Baso % (Auto) 0.3 % 08/03/21 02:34 Neut # (Auto) 7.72 10^3/uL (1.8-7.7) H 08/03/21 02:34 Lymph # (Auto) 0.5 10^3/uL (0.8-4.8) L 08/03/21 02:34 [place] # (Auto) 1.0 10^3/uL (0.2-0.9) H 08/03/21 02:34 Eos # (Auto) 0.1 10^3/uL (0.0-0.8) 08/03/21 02:34 Baso # (Auto) 0.0 10^3/uL (0.0-0.1) 08/03/21 02:34 Nucleated RBC % (auto) 0 % 08/03/21 02:34 Nucleated RBCs # 0.0 /100WBC 08/03/21 02:34 PT 14.00 SECONDS (12.1-14.9) 07/25/21 16:22 INR 1.05 (0.8-1.2) 07/25/21 16:22 D-Dimer 1.36 ug/mIFEU (0-0.59) H 07/28/21 09:45 Sodium 131 mmol/L (136-145) L 08/03/21 02:34 Potassium 3.9 mmol/L (3.5-5.1) 08/03/21 02:34 Chloride 94 mmol/L (98-107) L 08/03/21 02:34 Carbon Dioxide 30 mmol/L (22-29) H 08/03/21 02:34 Anion Gap 10.9 (5-19) 08/03/21 02:34 BUN 8 mg/dL (8-23) 08/03/21 02:34 Creatinine 0.4 mg/dL (0.7-1.2) L 08/03/21 02:34 GFR Calculation 213.9 mL/min (90-130) H 08/03/21 02:34 Glucose 111 mg/dL (65-115) 08/03/21 02:34 POC Glucose 104 mg/dL (70-110) 07/27/21 06:08 Estimat Average Glucose 59 07/25/21 16:22 Hemoglobin A1c 3.7 % (4.0-6.0) L 07/25/21 16:22 Calculated Osmolality 271 mOsm/kg (285-295) L 08/03/21 02:34 Calcium 9.1 mg/dL (8.5-10.5) 08/03/21 02:34 Phosphorus 3.3 mg/dL (2.5-4.5) 08/03/21 02:34 Magnesium 2.0 mg/dL (1.7-2.3) 08/03/21 02:34 Iron 24 ug/dL (59-158) L 07/25/21 16:22 TIBC 85 mcg/dl 07/25/21 16:22 % Saturation 28.2 % (20-50) 07/25/21 16:22 Unsat Iron Binding 61 ug/dL (112-347) L 07/25/21 16:22 Ferritin 549 ng/mL (30-400) H 07/25/21 16:22 Total Bilirubin 0.6 mg/dL (0.15-1.2) 08/03/21 02:34 AST 14 U/L (0-40) 08/03/21 02:34 ALT 9 U/L (0-41) 08/03/21 02:34 Alkaline Phosphatase 63 IU/L (40-130) 08/03/21 02:34 Troponin T Gen 5 ng/L 20 ng/L (0-15) H 07/26/21 18:30 Troponin T Baseline 20 ng/L (0-15) H 07/28/21 07:55 Troponin T 120 Minute 20.23 ng/L (0-15) H 07/28/21 09:45 Delta Troponin T 0.23 ABS# (0-10) 07/28/21 09:45 Troponin T Hi Sens 6Hr 19.27 ng/L (0-15) H 07/28/21 13:51 Troponin T Hi Sens 6Hr Delta -0.73 ng/L (0-12) L 07/28/21 13:51 C-Reactive Protein 64.0 mg/L (0.0-4.9) H 08/03/21 02:34 NT-Pro-B Natriuret Pep 898 pg/mL (0-125) H 08/03/21 02:34 NT-Pro-B Natriuret Pep Cancelled 08/03/21 02:34 Total Protein 5.5 g/dL (6.6-8.7) L 08/03/21 02:34 Albumin 2.3 g/dL (3.5-5.2) L 08/03/21 02:34 Globulin 3.2 g/dL (1.3-4.6) 08/03/21 02:34 Vitamin B12 1035 pg/mL (232-1245) 07/25/21 16:22 Folate 2.7 ng/mL (4.5-32.2) L 07/25/21 16:22 Procalcitonin 0.10 ng/mL (0-0.5) 08/03/21 02:34 Procalcitonin Cancelled 08/03/21 02:34 TSH 1.87 uIU/mL (0.27-4.20) 07/26/21 04:27 Random Cortisol 16.78 ug/dL (2.47-19.5) 07/25/21 16:22 Ethyl Alcohol < 10 mg/dL (0-10) 07/25/21 16:22 Blood Type AB Positive 08/01/21 09:04 Rho(D) Type Positive 08/01/21 09:04 Antibody Screen Negative 08/01/21 09:04 Crossmatch See Detail 08/01/21 09:04 Vitals Last Vital Signs Temp 97.7 F 08/03/21 07:17 Pulse 75 08/03/21 07:17 Resp 10 L 08/03/21 07:17 BP 130/89 08/03/21 07:17 Pulse Ox 100 08/03/21 07:17 Discharge Plan Discharge Patient Disposition: Home Condition: Stable Prescriptions: New sucralfate 1 gram Tablet 1 g PO AC&BEDTIME 30 Days Qty: 60 0RF folic acid 1 mg Tablet 1 mg feeding tube DAILY 30 Days Qty: 30 0RF multivitamin with folic acid [Thera] 400 mcg Tablet 1 tab PO DAILY 30 Days Qty: 30 0RF trazodone 50 mg Tablet 25 mg feeding tube BEDTIME 30 Days Qty: 30 0RF magnesium L-lactate [Magtab] 84 mg tablet extended release 84 mg PO DAILY 30 Days Qty: 30 0RF Phosphorous 250 mg tablet 1 tab PO DAILY 30 Days Qty: 30 0RF thiamine mononitrate (vit B1) [Vitamin B-1 (mononitrate)] 100 mg Tablet 100 mg feeding tube DAILY 30 Days Qty: 30 0RF docusate sodium [Docu] 50 mg/5 mL Liquid 100 mg feeding tube BID 30 Days Qty: 600 0RF sotalol 80 mg Tablet 80 mg PO BID@0900,2100 30 Days Qty: 60 0RF Continued aspirin 81 mg tablet,delayed release (DR/EC) 81 mg PO DAILY 0RF tramadol 50 mg tablet 50 mg PO Q6H PRN (Reason: Pain) 0RF nitroglycerin 0.4 mg tablet, sublingual 0.4 mg sublingual Q5M PRN (Reason: chest pain) Qty: 30 3RF Rx Instructions: do not exceed 3 doses per episode cilostazol 50 mg tablet 50 mg PO BID Qty: 180 3RF pravastatin 10 mg tablet 10 mg PO DAILY Qty: 90 3RF Discontinued atenolol 25 mg tablet 50 mg PO BID 0RF meloxicam 7.5 mg tablet 7.5 mg PO BID 0RF isosorbide mononitrate 30 mg tablet extended release 24 hr 30 mg PO DAILY 0RF amlodipine 2.5 mg tablet 2.5 mg PO DAILY Qty: 90 1RF Discharge Orders: Discharge Order (Routine); Ordered 08/03/21 Ordered By: Byron Angelo Other Ambulatory Orders: DME: Hospital Bed (Order) Location: None Selected Ordered By: Byron Angelo Referrals: [facility] [Outside] [facility] ([facility]) [Outside] Jose Ronquillo MD [Physician] - (As needed) Mick Meraz MD [Hospitalist] - 4-7 days (on saturday) Michelle Graves MD [Physician] - 7-10 days () Discharge Diet: Start new tube feeds as directed Discharge Activity: Resume usual activity Patient Instructions: GI Discharge Instructions, Opioid Safety Activity Restrictions/Additional Instructions: -Please follow-up with Dr. Meraz in 1 week -Please continue tube feeds as prescribed -If you have worsening abdominal pain go to the emergency room -If there was any chest pain go to emergency room -If you have worsening shortness of breath go to the emergency room -bolus recommendations for tube feeding. Recommend Jevity 1.2, 6 x 237 mls/day. This works out nicely to 2 x 237 mls of Jevity 1.2 at breakfast, lunch and dinner, with 60 ml flushes before and after -with additional flushes of free water 120 mls Q12H Discharge Attestations Time Spent in Discharge Care*: less than 30 min Quality Metrics Clinical Quality Measures [ No reported AMI, CVA or VTE this stay] Coding Level of Care Code Acute Chg FW DC note Diagnoses Atrial fibrillation with RVR I48.91 Dysphagia R13.10 Fatigue R53.83 Fatigue type: unspecified Malignant neoplasm nasopharynx C11.9 Falls W19.XXXA Acute anemia D64.9 Protein calorie malnutrition E46 Physical deconditioning R53.81 CHF exacerbation I50.9
--- NOTE | 2021-08-03 11:22 | PC.NUTR ---
Addendum entered and electronically signed by Shabana Morrissey 08/03/21 11:27: A feeding would constitute 1 can/carton of Jevity 1.5 Original Note: In rounds, said Pt is to discharge today. I spoke with the dietitian at [facility] and she has arranged bolus feedings using Jevity 1.5. It would be optimal for Pt to receive 5 cans of Jevity 1.5 per day with 60 mls flush before and after the bolus. Feedings can be done every 2-3 hours with no other fluids given other then flushes since Pt has experienced feeling bloated/full as well as residuals. Details in RD assessment.
--- NOTE | 2021-08-03 14:30 | PC.SOCIAL ---
IMM update IMM updated with patient. Verbalized an understanding. Copy Pg 2 provided. Initialled, dated, timed, and placed in chart.
== END 2021-08-03 17:45 | disposition home health service (06) | DRG 146 ==
LOC: MEDSURG 07-27 21:02 → CSU 07-28 12:50
PROVIDERS: Internal Medicine; Surgery; Admitting Provider Internal Medicine; PCP Nurse Practitioner Family; Visit Provider Family Medicine
PROC: B5181ZA Fluoroscopy of Superior Vena Cava using Low Osmolar Contrast, Guidance (ICD-10-PCS; principal; 2021-07-26 11:55)
PROC: 0DH63UZ Insertion of Feeding Device into Stomach, Percutaneous Approach (ICD-10-PCS; CPT 43246; 2021-07-26 11:55)
DX: C11.9 Malignant neoplasm of nasopharynx, unspecified (principal); I50.31 Acute diastolic (congestive) heart failure; E46 Unspecified protein-calorie malnutrition; I48.91 Unspecified atrial fibrillation; I95.9 Hypotension, unspecified; D64.9 Anemia, unspecified; R13.10 Dysphagia, unspecified; E87.6 Hypokalemia; E83.42 Hypomagnesemia; E83.39 Other disorders of phosphorus metabolism; R09.02 Hypoxemia; Z79.82 Long term (current) use of aspirin; R53.81 Other malaise; Z86.73 Personal history of transient ischemic attack (TIA), and cerebral infarction without residual deficits; I25.10 Atherosclerotic heart disease of native coronary artery without angina pectoris; I11.0 Hypertensive heart disease with heart failure; J44.9 Chronic obstructive pulmonary disease, unspecified; F17.210 Nicotine dependence, cigarettes, uncomplicated; E86.0 Dehydration; Z91.81 History of falling
CPT/HCPCS: 36415; 36416; 36430; 36591; 51702; 71045; 71275; 77001; 80053; 80307; 82533; 82607; 82728; 82746; 82962; 83036; 83540; 83550; 83735; 83880; 84100; 84145; 84443; 84484; 85014; 85018; 85025; 85378; 85610; 86140; 86850; 86900; 86920; 87426; 92610; 93005; 93306; 93970; 94664; 97110; 97116; 97161; 97165; 97530; 97535; C1788; C9113; J0282; J0690; J1160; J1642; J1644; J1720; J1756; J1940; J2270; J2405; J3411; J3475; J3490; J7030; J7050; J7060; P9016; P9047; Q9967

== ENCOUNTER 2021-08-03 21:47 | Emergency (ER) | payer MEDICARE, SELFPAY ==
--- NOTE | 2021-08-03 22:01 | XRR_ITS ---
PROCEDURE INFORMATION: Exam: XR Abdomen Exam date and time: 08/03/2021 10:22 PM Age: 66 years old Clinical indication: Abdominal pain; Generalized; Additional info: Peg tube TECHNIQUE: Imaging protocol: XR of the abdomen. Views: Frontal supine view of the abdomen. 1 View. COMPARISON: CT angio abd aorta runof 01100 10/18/2020 9:59 AM FINDINGS: Gastrointestinal tract: Normal. No bowel dilation. Bones/joints: Unremarkable. XR/XR KUB [id number] IMPRESSION: Negative for bowel dilation to indicate obstruction, a PEG tube is not seen as in provided history, please correlate clinically.
[2021-08-03 22:02] VITALS: PULSE 85; RESP 16; O2SAT 94; BMI 16.3
--- NOTE | 2021-08-03 22:12 | ED_ITS ---
HPI - General Adult General: Chief complaint: General Medical Stated complaint: Feeding Tube Came Out Time Seen by Provider: 08/03/21 21:52 Source: patient Mode of arrival: ambulatory Limitations: no limitations History of Present Illness: 66-year-old male with history of nasopharyngeal cancer had a PEG tube placed 1 week ago here. He states that recently he was moving and pulled his PEG tube. He denies any abdominal pain no redness at the site. Denies any worst improving factors. Associated symptoms: Deny chest pain, dyspnea, headache(s), nausea, rash or vo miting Review of Systems Const: Denies: fever(s), chills, body aches or change in appetite Eyes: Denies: blurry vision or eye discomfort ENMT: Denies: throat pain or dental pain Card: Denies: chest pain Resp: Denies: dyspnea GI: Denies: abdominal pain, nausea, vomiting or diarrhea : Denies: dysuria Musc: Denies: neck pain or back pain Skin/Breast: Denies: rash Neuro: Denies: headache(s) Psych: Denies: depression Renan/Lymph: Denies: easy bruising All/Imm: Denies: urticaria PFSH ED PFSH: Medical History CAD (coronary artery disease) COPD (chronic obstructive pulmonary disease) CVA (cerebral vascular accident) Hypertension Peripheral arterial disease Surgical History H/O carpal tunnel repair Port-A-Cath in place (07/26/21) S/P percutaneous endoscopic gastrostomy (PEG) tube placement (~07/26/21) Family History Mother Old age Father Accidental Other Unknown family medical history Social History Smoking and tobacco status: current every day smoker (1-3 cigs) cigarettes [ Other cigarette details: 1-3 cig a day] Alcohol intake: current Alcohol intake frequency: 0-2 Drinks per Day Alcohol type: hard liquor Desire information about substance/drug rehabilitation?: No Counseling given: No Physical Exam Const: COMMON NORMALS: no acute distress, patient oriented x3 and healthy appearing HENMT: COMMON NORMALS: normocephalic and atraumatic HEAD & SCALP: normocephalic and atraumatic Eye: COMMON NORMALS: Equal, round and reactive pupils present and EOMs intact bilaterally PUPIL: Yes Equal, round and reactive pupils present Neck/C-Spine: COMMON NORMALS: full ROM and supple Chest: COMMONS NORMALS: normal inspection of the chest and normal palpation of entire chest wall Resp: COMMON NORMALS: normal respiratory effort, No retractions, No use of accessory muscles and clear to auscultation bilaterally AUSCULTATION: clear to auscultation bilaterally Cardio: COMMON NORMALS: regular rate, regular rhythm and No murmurs present (Cardio) RATE: regular rate RHYTHM: regular rhythm GI: COMMON NORMALS: Normal to inspection, nondistended, normoactive bowel sounds present, Soft to palpation, non-tender and no masses PALPATION: Yes Soft to palpation OTHER: No abdominal tenderness or peritonitis Extremity: COMMON NORMALS: normal to inspection and full ROM Neuro: COMMON NORMALS: patient oriented x3, moves all extremities and no focal motor deficits Psych: COMMON NORMALS: mental status grossly normal, Normal thought process present and cooperative THOUGHT PROCESS: Normal thought process present Skin: COMMON NORMALS: no rashes or lesions noted and no wounds GENERAL SKIN EXAM: no rashes or lesions noted Course Vital Signs: Vital signs: Vital Signs Pulse Rate 85 08/03/21 22:02 Respiratory Rate 16 08/03/21 22:02 Pulse Oximetry 94 08/03/21 22:02 [facility] - General Adult Medical Decision Making Patient presents here with a dislodged PEG tube PEG tube has been placed less than a week I did speak to a surgeon and placed to Dr. Ronquillo inform patient that he is to call his office first thing in the morning and Dr. Ronquillo is going to see him tomorrow to replace the PEG tube. His abdominal exam here is benign he has no peritonitis KUB is normal Discharge Plan Discharge Patient Disposition: Home Clinical Impression: PEG tube malfunction Condition: Stable Prescriptions: No Action aspirin 81 mg tablet,delayed release (DR/EC) 81 mg PO DAILY 0RF tramadol 50 mg tablet 50 mg PO Q6H PRN (Reason: Pain) 0RF nitroglycerin 0.4 mg tablet, sublingual 0.4 mg sublingual Q5M PRN (Reason: chest pain) Qty: 30 3RF Rx Instructions: do not exceed 3 doses per episode cilostazol 50 mg tablet 50 mg PO BID Qty: 180 3RF pravastatin 10 mg tablet 10 mg PO DAILY Qty: 90 3RF Docu 50 mg/5 mL Liquid 100 mg feeding tube BID 30 Days Qty: 600 0RF trazodone 50 mg Tablet 25 mg feeding tube BEDTIME 30 Days Qty: 30 0RF sotalol 80 mg Tablet 80 mg PO BID@0900,2100 30 Days Qty: 60 0RF sucralfate 1 gram Tablet 1 g PO AC&BEDTIME 30 Days Qty: 60 0RF folic acid 1 mg Tablet 1 mg feeding tube DAILY 30 Days Qty: 30 0RF Vitamin B-1 (mononitrate) 100 mg Tablet 100 mg feeding tube DAILY 30 Days Qty: 30 0RF Thera 400 mcg Tablet 1 tab PO DAILY 30 Days Qty: 30 0RF Magtab 84 mg tablet extended release 84 mg PO DAILY 30 Days Qty: 30 0RF Phosphorous 250 mg tablet 1 tab PO DAILY 30 Days Qty: 30 0RF Discharge Orders: Discharge ED (Routine); Ordered 08/03/21 Ordered By: Jayne Barraza Referrals: Jose Ronquillo MD [Physician] - 1-3 days Estela Leone [Primary Care Provider] - Discharge Diet: Advance as tolerated Discharge Activity: Resume usual activity Patient Instructions: PEG Tube Insertion (DC) Coding Level of Care Code ED Switchboard Manager for Chg Fwd Exam Comprehensive
== END 2021-08-03 22:58 | disposition home or self-care (01) ==
PROVIDERS: Emergency Provider Emergency Medicine; PCP Nurse Practitioner Family
DX: K94.23 Gastrostomy malfunction (principal); F17.210 Nicotine dependence, cigarettes, uncomplicated
CPT/HCPCS: 74018; 99281

== ENCOUNTER 2021-08-07 08:12 | Outpatient (CLI) | payer MEDICARE, SELFPAY ==
--- NOTE | 2021-08-07 17:22 | ONC FU_ITS ---
Dr. Meraz Patient Follow-Up Note Patient: Kareem Morrissey Unit #: [id number]: [id number] Dicatated By: Mick Meraz M.D.Date of Visit:Aug 07, 2021 Onc Med Follow-up/Prog Note Chief Complaint: Squamous cell carcinoma of the nasopharynx. 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 On 06/21/2021 he was seen by Dr. Cook with complaints of sores in his mouth and difficulty swallowing. He was noted on exam to have an exophytic erosive lesion involving the entire soft palate extending into the posterior nasopharyngeal area. It also was noted to extend to the hard palate. His neck CT on 07/07/2021 showed a large, bulky, neoplastic appearing mass involving the posterior nasopharynx and extending to involve the hard and soft palate and uvula. The mass measured approximately 4.6 x 6.0 x 6.5 cm. It appeared to most likely be due to nasopharyngeal primary carcinoma. There was invasion into the maxillae, right greater than left, and there was associated invasion into the right maxillary sinus and into the right head and neck surgeon space. Neoplasm was noted to extend posteriorly to the right condylar fossa posterior to the mandibular condyle and there was loss of the paravertebral fat plane in the paravertebral soft tissues. Neoplasm was noted to extend into the right pterygopalatine fossa and sphenopalatine foramen with lateral extension into the pterygomaxillary fissure. There was extension along the inferior orbital fissure. There was noted to be expansion of the vidian canal on the right and there was evidence of perineural tumor spread into the right skull base and middle cranial fossa. Numerous bilateral metastatic lymph nodes were noted, the largest on the left measuring 1.9 x 1.5 x 2.1 cm. On 07/13/2021 he underwent punch biopsies of the palatal mass. 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 I had seen him initially on 07/25/2021. With his disease being so locally advanced and with extremely poor overall condition, it appeared that his treatment options were going to be very limited. However, I did make arrangements for hospital admission for purposes of PEG tube placement and placement of Port-A-Cath venous access device. It ended up being a complicated hospitalization, as he developed atrial fibrillation with rapid ventricular response and congestive heart failure. He was also significantly anemic, requiring PRBC transfusion. However, the atrial fibrillation was eventually controlled with sotalol, and he was able to have the PEG tube and Port-A-Cath placed. Unfortunately, after returning home the PEG tube came out as his son was trying to get him put back into bed. He was seen in the emergency room, and he is scheduled to see Dr. Ronquillo later this morning to have it replaced. In the meantime, I had requested a PD-L1 expression on the biopsy, and that did come back positive with CPS > 1. He is seen for a follow-up visit. He has gotten even weaker since the hospitalization, to the point that he is virtually unable to ambulate now. His ECOG score is 3. He has very minimal oral intake, limited to broth or other clear liquids. He does not have fever or night sweats. He is short of breath, and he is on continuous oxygen. He does not complain of cough and he has not been having chest pain. He has a little nausea. Bowel and bladder function remain adequate. He has no significant joint or bone pain, and he has no focal neurologic symptoms. Medications: Aspirin 1 Tablet (of 81 mg) Tablet, enteric coated Oral daily, Atenolol 1 Tablet (of 50 mg) Oral b.i.d., Cilostazol 1 Tablet (of 50 mg) Oral b.i.d., Isosorbide Mononitrate ER 1 Tablet (of 30 mg) Tablet SR 24 HR Oral daily, Meloxicam 1 Tablet (of 7.5 mg) Oral b.i.d., Nitroglycerin 1 Tablet (of 0.4 mg) Tablet, sublingual Sublingual q 5 minutes PRN, Potassium Chloride 15 mL (of 20 meq/15ml ) Solution Oral daily, Pravastatin Sodium 1 Tablet (of 10 mg) Oral daily, traMADol HCl 1 Tablet (of 50 mg) Oral q 6 hours PRN Allergies: No Known Allergies. Vital Signs: Performed on Aug 07, 2021 10:03 Height - 71.00 in Temperature - 99.4 F (HIGH) Pulse - 93 /min Respiration - 20 /min BP - 85/61 mm(hg) (LOW) Pain - 0 Fatigue - 9 Physical Examination: Constitutional - He appears very weak generally, Eyes - Sclerae nonicteric. The right eye is a little red and the lower eyelid is droopy, ENMT - There is a large mass involving the oropharynx, most prominently in the area of the right tonsil, but also extending to the left side and also involving the soft and hard palate, Hematologic/Lymphatic - There is a 2 to 3 cm node in the left anterior cervical area on the left and a smaller node in the right submandibular area. There is no clavicular or axillary adenopathy noted, Respiratory - Lungs are clear with diminished air movement bilaterally, Cardiovascular - Heart rhythm appears regular. There is no murmur, gallop, or rub noted, Abdomen - Soft. The PEG tube site appears to be completely healed over. Liver and spleen are not enlarged. There is no abdominal mass or ascites noted and there is no inguinal adenopathy, Extremities - No edema, Neurologic - No focal neurologic deficit. Problem List: 1. 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 2. He has associated weight loss and very poor performance status. 3. History of hypertension, currently with low blood pressure. 4. Peripheral arterial disease. 5. He had suspected, but apparently no documented coronary artery disease. 6. Degenerative arthritis/degenerative disease of the spine. Problems Addressed with this Encounter and Plan: Patient with moderately differentiated keratinizing squamous cell carcinoma which appears to be originating in the nasopharynx. His disease is locally very advanced. As yet there is no obvious distant metastatic disease, but he has not yet completed his staging evaluation. Thus far by clinical evaluation his disease is stage at least TAURUS (T4, N2, M0). He has very poor performance status. He has had significant weight loss, and he appears debilitated. The CT findings and images were reviewed with the patient and his family. I also reviewed the pathology results, and we discussed the clinical implications. His disease is very advanced locally and clearly inoperable. It is also advanced to the extent that we would probably have to consider some form of induction therapy prior to attempting chemoradiation. The tumor was found to have positive PD-L1 expression with CPS > 1. Given his poor nutritional status and overall poor condition, I had arranged for inpatient admission for PEG tube placement and for placement of Port-A-Cath venous access device. The hospitalization was complicated by atrial fibrillation/RVR and congestive heart failure. He was also significantly anemic, requiring PRBC transfusion. The PEG tube and Port-A-Cath, though, were successfully placed. Following discharge, the PEG tube became dislodged as his son was trying to get him back into bed. He will be seeing Dr. Ronquillo to have the PEG tube replaced. With his tumor showing positive P-L1 expression, he will be given the option to have a trial of immunotherapy with pembrolizumab, assuming we can get the medication available for him, as it would not be a standard first-line therapy. However, the patient's condition is clearly unsuitable for chemotherapy and his disease is currently too advanced for radiation. Signed By: Mick Meraz M.D. <<Signature on File>>
== END 2021-08-07 08:13 | disposition home or self-care (01) ==
PROVIDERS: PCP Nurse Practitioner Family; Visit Provider Internal Medicine Medical Oncology
DX: C11.9 Malignant neoplasm of nasopharynx, unspecified (principal); I10 Essential (primary) hypertension; I73.9 Peripheral vascular disease, unspecified; M47.9 Spondylosis, unspecified; R63.4 Abnormal weight loss; Z79.899 Other long term (current) drug therapy
CPT/HCPCS: 96360; 99215

== ENCOUNTER 2021-08-07 09:22 | Day surgery (SDC) | payer MEDICARE, SELFPAY ==
[2021-08-04 16:49] VITALS: BMI 16.9
--- NOTE | 2021-08-07 09:44 | P.HP_ITS ---
Same Day Surgery H&P Indication for Procedure/HPI DATE OF PROCEDURE: August 07, 2021 CHIEF COMPLAINT/INDICATIONFOR SURGICAL PROCEDURE: PEG placement PREOP DIAGNOSIS: Oropharyngeal cancer PLANNED PROCEDURE: Operation Date: 08/07/21 11:30 Proposed Procedures p PEG Tube Insertion 30443/k94.23(Not Applicable) - Jose Ronquillo MD Medications/Allergies* Home Medications Medication Instructions Recorded Confirmed Type aspirin 81 mg tablet,delayed 81 mg PO DAILY 07/14/20 08/04/21 History release tramadol 50 mg tablet 50 mg PO Q6H PRN 07/14/20 08/04/21 History Allergies/Adverse Reactions Allergy/AdvReac Type Severity Reaction Status Date / Time No Known Allergies Allergy Unverified 08/04/21 16:40 Pertinent History/Comorbid Conditions* Medical History (Updated 08/04/21 @ 00:01 by ) CAD (coronary artery disease) COPD (chronic obstructive pulmonary disease) CVA (cerebral vascular accident) Hypertension Peripheral arterial disease Surgical History (Updated 07/27/21 @ 12:48 by Jose Ronquillo MD) H/O carpal tunnel repair Port-A-Cath in place (07/26/21) S/P percutaneous endoscopic gastrostomy (PEG) tube placement (~07/26/21) Family History (Updated 07/25/21 @ 16:07 by Byron Angelo MD) Accidental Father Unknown family medical history Old age Mother Social History Smoking and tobacco status: current every day smoker (1-3 cigs) cigarettes [ Other cigarette details: 1-3 cig a day] Alcohol intake: current Alcohol intake frequency: 0-2 Drinks per Day Alcohol type: hard liquor Desire information about substance/drug rehabilitation?: No Counseling given: No Pertinent Exam Findings alert, oriented x 3 and regular rate & rhythm Recommendations Surgery/Procedure today Coding Level of Care Code Acute Pharmaceutical Salesperson for Florencio Reza
--- NOTE | 2021-08-07 10:27 | ANES.PREANE2 ---
Pre-Anesthetic Assessment Height/Weight: Height 1.78 m Weight 53.524 kg Preop Diagnosis: Oropharyngeal cancer Operation Date: 08/07/21 11:30 Proposed Procedures p PEG Tube Insertion 35439/k94.23(Not Applicable) - Jose Ronquillo MD Familial anesthetic complications: None Was Beta Wanda taken within 24 hours: Yes Was Clonidine taken within 24 hours: N/A Social Tobacco and No alcohol Exam alert, oriented x 3 and regular rate & rhythm Airway Submandibular: within normal limits Cervical ROM: within normal limits Mallampati: Class II Dentition: chipped Comments: Comments: Very poor dentition, right facial droop Pulmonary Chronic Obstructive Pulmonary Disease CV/HEM Hypertension Metabolic Hyperlipidemia deconditioned, malnutrition Anesthetic Plan ASA status: 3 Anesthesia: MAC Medications/Allergies Home Medications Medication Instructions Recorded Confirmed Last Taken Type aspirin 81 mg tablet,delayed 81 mg PO DAILY 07/14/20 08/04/21 1 Day Ago History release ~07/24/21 nitroglycerin 0.4 mg sublingual 0.4 mg SUBLINGUAL Q5M PRN #30 tab 07/14/20 08/04/21 Unknown Rx tablet tramadol 50 mg tablet 50 mg PO Q6H PRN 07/14/20 08/04/21 1 Day Ago History ~07/24/21 cilostazol 50 mg tablet 50 mg PO BID #180 tab 02/27/21 08/04/21 1 Day Ago Rx ~07/24/21 pravastatin 10 mg tablet 10 mg PO DAILY #90 tab 02/27/21 08/04/21 1 Day Ago Rx ~07/24/21 docusate sodium 50 mg/5 mL oral 100 mg (10 mL) FEEDING TUBE BID 30 08/03/21 08/04/21 Unknown Rx liquid (Docu) Days #600 ml folic acid 1 mg tablet 1 mg FEEDING TUBE DAILY 30 Days 08/03/21 08/04/21 Unknown Rx #30 tab magnesium L-lactate 84 mg 84 mg PO DAILY 30 Days #30 tab 08/03/21 08/04/21 Unknown Rx tablet,extended release (Magtab) multivitamin with folic acid 400 1 tab PO DAILY 30 Days #30 tab 08/03/21 08/04/21 Unknown Rx mcg tablet (Thera) sodium di- and 1 tab PO DAILY 30 Days #30 tab 08/03/21 08/04/21 Unknown Rx monophosphate-potassium phos monobasic 250 mg tablet (Phosphorous) sotalol 80 mg tablet 80 mg PO BID@0900,2100 30 Days #60 08/03/21 08/04/21 Unknown Rx tab sucralfate 1 gram tablet 1 g PO AC&BEDTIME 30 Days #60 tab 08/03/21 08/04/21 Unknown Rx thiamine mononitrate (vit B1) 100 100 mg FEEDING TUBE DAILY 30 Days 08/03/21 08/04/21 Unknown Rx mg tablet (Vitamin B-1 #30 tab (mononitrate)) trazodone 50 mg tablet 25 mg FEEDING TUBE BEDTIME 30 Days 08/03/21 08/04/21 Unknown Rx #30 tab Allergies Allergy/AdvReac Type Severity Reaction Status Date / Time No Known Allergies Allergy Unverified 08/04/21 16:40 [facility] Anesthesia Medical History CAD (coronary artery disease) COPD (chronic obstructive pulmonary disease) CVA (cerebral vascular accident) Hypertension Peripheral arterial disease Surgical History H/O carpal tunnel repair Port-A-Cath in place (07/26/21) S/P percutaneous endoscopic gastrostomy (PEG) tube placement (~07/26/21) Family History Mother Old age Father Accidental Other Unknown family medical history Social History Smoking and tobacco status: current every day smoker (1-3 cigs) cigarettes [ Other cigarette details: 1-3 cig a day] Alcohol intake: current Alcohol intake frequency: 0-2 Drinks per Day Alcohol type: hard liquor Desire information about substance/drug rehabilitation?: No Counseling given: No Data Anesthesia Cardiac Studies: Echocardiogram 07/28/21 Sestamibi Stress Test (Cardiology) 09/22/20
[2021-08-07 10:31] VITALS: BP 115/83; PULSE 84; RESP 12; TEMP 36.6; O2SAT 100
[2021-08-07] MEDS: sodium chloride 0.9% 1,000 ML 30 ML IV (10:35)
[2021-08-07] MEDS: ceFAZolin 1,000 MG in sodium chloride 0.9% (plus) 50 ML 100 MG IV (11:49)
[2021-08-07 12:03] VITALS: BP 105/81; PULSE 87; RESP 20; TEMP 37.1; O2SAT 99
--- NOTE | 2021-08-07 12:06 | ANE.PACU2 ---
Inpatient post-anesthesia follow up: Airway intact: Yes Vital signs: Temperature 98.7 F Pulse Rate 87 Respiratory Rate 20 Blood Pressure 105/81 Pulse Oximetry 99 Oxygen Delivery Me thod Simple Mask Oxygen Flow Rate 3 Fraction of Inspir ed Oxygen Hydration adequate: Yes Nausea and vomiting: No Pain level: 1 Mental status: Baseline
[2021-08-07 12:10] VITALS: BP 115/83; PULSE 84; RESP 14; O2SAT 98
--- NOTE | 2021-08-07 12:14 | P.OP_ITS ---
Operative Report Date of procedure: August 07, 2021 Pre-op diagnosis: Oropharyngeal cancer-partially obstructing Accidental removal of previously placed PEG tube Post-op diagnosis: same Procedure done: Percutaneous endoscopic placement of 20 [place] [employer] Endovive gastrostomy tube Pathology: none sent Surgeon: Jose Ronquillo Anesthesia: MAC Condition: stable Disposition: PACU Procedure: The patient was taken to the Operating Room and was placed under monitored anesthesia care after antibiotic had been administered. A bite block was placed and gastroscope was introduced and advanced up to the stomach and the first portion of the duodenum. There were no abnormalities noted in the esophagus, stomach and duodenum. There was a partially obstructing mass noted in the oropharynx. The site for the planned PEG was confirmed in the left upper quadrant with transillumination using gastroscope noted through the abdominal wall and indentation of the abdominal wall noted on the gastroscope. This site was marked, and total of 5 milliliters of 1% lidocaine was infiltrated. An 11- blade was used to make a stab incision. An introducer needle was passed through the abdominal wall into the gastric lumen and the needle removed and the needle removed and the sheath left behind. A guidewire was passed through the introducer needle into the gastric lumen and grasped with a snare attached to the gastroscope. The gastroscope was withdrawn along with the guidewire, which was attached to the 20-[place] EndoVive PEG tube. The guidewire was then pulled through the abdominal wall along with the PEG through the mouth into the gastric lumen until the inner disc was noted to stand against the gastric wall. The gastroscope was reintroduced to confirm good position. The outer disc was then attached and the two way valve was fixed to the PEG tube. The outer disc was noted to be at 2 centimeters at the skin level. Sterile dressing and abdominal binder was placed. The patient was stable throughout the procedure.
[2021-08-07 12:20] VITALS: BP 137/85; PULSE 82; RESP 16; O2SAT 93
== END 2021-08-07 12:53 | disposition home or self-care (01) ==
PROVIDERS: PCP Nurse Practitioner Family; Visit Provider Surgery
PROC: 0DH63UZ Insertion of Feeding Device into Stomach, Percutaneous Approach (ICD-10-PCS; CPT 43246; principal; 2021-08-07 11:30)
DX: K94.23 Gastrostomy malfunction (principal); I25.10 Atherosclerotic heart disease of native coronary artery without angina pectoris; J44.9 Chronic obstructive pulmonary disease, unspecified; Z86.73 Personal history of transient ischemic attack (TIA), and cerebral infarction without residual deficits; I10 Essential (primary) hypertension; F17.210 Nicotine dependence, cigarettes, uncomplicated; Z79.82 Long term (current) use of aspirin
CPT/HCPCS: 43246; 76000; J0690; J2704; J7030

== ENCOUNTER → 2021-08-17 11:40 | Outpatient (BNVA) | payer MEDICARE, SELFPAY | PROVIDERS: PCP Nurse Practitioner Family; Visit Provider Internal Medicine Cardiovascular Disease | DX: I48.91 Unspecified atrial fibrillation (principal); C11.9 Malignant neoplasm of nasopharynx, unspecified; I73.9 Peripheral vascular disease, unspecified; I10 Essential (primary) hypertension; F17.210 Nicotine dependence, cigarettes, uncomplicated; E46 Unspecified protein-calorie malnutrition; Z68.1 Body mass index [BMI] 19.9 or less, adult; J44.9 Chronic obstructive pulmonary disease, unspecified; Z79.82 Long term (current) use of aspirin | CPT/HCPCS: 99214 ==

== ENCOUNTER 2021-08-21 15:08 | Observation (INO) | payer MEDICARE, SELFPAY ==
[2021-08-21] VITALS (9 sets, daily range): BP systolic 96–139; BP diastolic 65–72; PULSE 72–93; RESP 18–24; TEMP 36.8; O2SAT 85–100; BMI 15.7
--- NOTE | 2021-08-21 15:17 | ED_ITS ---
HPI - General Adult General: Chief complaint: Shortness of Breath/Dyspnea Stated complaint: Low BP/02 Time Seen by Provider: 08/21/21 15:17 Limitations: altered mental status History of Present Illness: Mr. Morrissey is a 66-year-old gentleman with complicated past medical history presents to the emergency department due to mental status change and shortness of breath. He recently has been undergoing evaluation for metastatic cancer including soft palate involvement. Overall he is been in poor health and has not yet initiated chemotherapy. Over the past few days he has had decreased mental status and responsiveness as well as generalized weakness. Additionally he has had cough. EMS found him to be hypoxemic today on room air and applied supplemental oxygen. Overall course of symptoms has been worsening. Intensity is moderate to severe. History provided by at bedside as the patient's mental status does not allow for significant conversation. Onset (ago): day(s) Review of Systems General: Reports: ROS unobtainable due to mental status PFS ED PFSH: Medical History Atrial fibrillation CAD (coronary artery disease) COPD (chronic obstructive pulmonary disease) CVA (cerebral vascular accident) Hypertension Peripheral arterial disease Surgical History H/O carpal tunnel repair Port-A-Cath in place (07/26/21) S/P percutaneous endoscopic gastrostomy (PEG) tube placement (~07/26/21) new tube - 08/07/2021 Family History Mother Old age Father Accidental Other Unknown family medical history Social History Smoking and tobacco status: current every day smoker (1-3 cigs) cigarettes [ Other cigarette details: 1-3 cig a day] Alcohol intake: current Alcohol intake frequency: 0-2 Drinks per Day Alcohol type: hard liquor Desire information about substance/drug rehabilitation?: No Counseling given: No Physical Exam Const: COMMON NORMALS: alert GENERAL APPEARANCE: cooperative, in distress, lethargic and ill appearing ORIENTATION/CONSCIOUSNESS: Yes lethargic HENMT: COMMON NORMALS: normocephalic and atraumatic HEAD & SCALP: normocephalic and atraumatic THROAT: other (Dried blood noted on lips and oropharynx, no obvious active bleeding.) Eye: COMMON NORMALS: conjunctivae normal CONJUNCTIVA: Yes conjunctivae normal SCLERA: sclerae normal Neck/C-Spine: COMMON NORMALS: supple GENERAL: Yes trachea midline Resp: AUSCULTATION: rhonchi OTHER: Irregular respiratory effort Cardio: COMMON NORMALS: regular rate and regular rhythm RATE: regular rate RHYTHM: regular rhythm GI: COMMON NORMALS: Soft to palpation PALPATION: Yes Soft to palpation and No Tenderness to palpation present (GI) PERCUSSION: normal to percussion Extremity: GENERAL: Yes normal exam except as noted and No edema Neuro: COMMON NORMALS: moves all extremities SENSORIUM/ORIENTATION: Yes alert, Yes Orientation impaired and Yes lethargic Course ED course: - Patient was seen and evaluated by me at bedside - Patient placed on cardiac monitors, IV access obtained - Initial evaluation notable for exam as above, ill with worsening oxygen requirement - Labs and xrays personally interpreted by me - Labs notable for leukocytosis, macrocytic anemia similar to prior. Metabolic panel with elevated bicarb, hypokalemia noted with replenishment ordered through G-tube. Urinalysis not concerning for urinary tract infection. ABG notable for compensated hypercapnia - Imaging notable for bilateral blunting of costophrenic angles, no pneumothorax or lobar consolidation. CT head with marked worsening of oncologic process. Cerebral edema noted. Dexamethasone ordered. - Upon serial reexamination after treatment the patient was similar. - Based on patient history, evaluation, and testing as interpreted the most likely cause of the patient's condition is altered mental status secondary to oncologic process resulting in cerebral edema. - Very challenging and sad situation. I discussed the results of ED evaluation with the patient's at bedside, she is tearful but understanding and realistic regarding the patient's grave prognosis. We are both agreeable that significant intervention such as intubation or additional aggressive cares will only prolong suffering. The patient's mental status even declined further with irregular respirations during ED evaluation. Ultimately the patient does not have adequate resources at home yet and desires admission for comfort measures and failure set up of home cares prior to discharge likely on hospice - Discussed case with hospitalist service who agreed to admit the patient. - Patient was admitted without further deterioration or significant events. Note: Click bubbles or prepopulated cardoso in note writing are used for assistance with data collection and billing and are inherently more limited than narrative and other text portions of this note. Please use narrative for additional clinical history and defer to narrative/free test for any case of contradictory information. If information appears in only free text or click bubble it should be considered present or absent as reported. Please contact note global technical writer for clarifications of clinical information or contradictory information. MDM is a brief summary, contradictory or erroneous seeming information should be clarified and full note should be reviewed. Vital Signs: Vital signs: Vital Signs Temperature 97.9 F 08/22/21 00:00 Pulse Rate 0 L 08/22/21 07:12 Respiratory Rate 16 08/22/21 00:00 Blood Pressure 129/72 08/22/21 00:00 Pulse Oximetry 92 08/22/21 00:00 MDM - General Adult Medical Decision Making 66-year-old gentleman with known history of cancer presenting with altered mental status and worsening respiratory status. Patient significantly ill appearance with altered mental status. Ultimately patient found to have worsening of oncologic process with cerebral edema which likely explains mental status. Admitted for comfort measures and arrangement of likely hospice. Medical Records I reviewed the patient's medical records. Lab Data I reviewed the patient's lab results. : 08/21/21 16:00 08/21/21 16:00 Radiology Impressions Chest X-Ray 08/21/21 15:33 Impression: 1. Clearing of bilateral pleural effusions. 2. Atherosclerosis. Head CT 08/21/21 15:33 IMPRESSION: 1. No acute intracranial hemorrhage. 2. Bilateral cerebral edema. 3. Significant progression of the destructive bone and soft tissue mass centered in the RIGHT face and nasopharynx since 07/07/2021. Mass now extends across the midline and is destroying the soft tissues and bones bilaterally with extension into the RIGHT middle cranial fossa. Mass was recently described in more detail on 07/07/2021 but has progressed since that study also. Laboratory Results WBC 12.7 10^3/uL (4.0-10.0) H 08/21/21 16:00 RBC 2.97 10^6/uL (4.1-5.3) L 08/21/21 16:00 Hgb 9.7 g/dL (11.7-16.6) L 08/21/21 16:00 Hct 30.5 % (42.0-52.0) L 08/21/21 16:00 MCV 102.7 fl (80-94) H 08/21/21 16:00 MCH 32.7 pg (28.0-34.0) 08/21/21 16:00 MCHC 31.8 g/dL (30.0-36.0) 08/21/21 16:00 RDW 13.2 % (12.1-15.1) 08/21/21 16:00 Plt Count 397 10^3/cmm (130-400) 08/21/21 16:00 MPV 9.5 fL (7.4-10.4) 08/21/21 16:00 Neut % (Auto) 85.9 % 08/21/21 16:00 Lymph % (Auto) 4.0 % 08/21/21 16:00 [place] % (Auto) 8.8 % 08/21/21 16:00 Eos % (Auto) 0.6 % 08/21/21 16:00 Baso % (Auto) 0.3 % 08/21/21 16:00 Neut # (Auto) 10.88 10^3/uL (1.8-7.7) H 08/21/21 16:00 Lymph # (Auto) 0.5 10^3/uL (0.8-4.8) L 08/21/21 16:00 [place] # (Auto) 1.1 10^3/uL (0.2-0.9) H 08/21/21 16:00 Eos # (Auto) 0.1 10^3/uL (0.0-0.8) 08/21/21 16:00 Baso # (Auto) 0.0 10^3/uL (0.0-0.1) 08/21/21 16:00 Nucleated RBC % (auto) 0 % 08/21/21 16:00 Nucleated RBCs # 0.0 /100WBC 08/21/21 16:00 Specimen Type Arterial 08/21/21 16:37 Sample Site Brachial, left 08/21/21 16:37 ABG pH 7.43 (7.35-7.45) 08/21/21 16:37 ABG pCO2 64.7 mmHg (35-45) H* 08/21/21 16:37 ABG pO2 355.0 mmHg (80.0-100.0) H 08/21/21 16:37 ABG HCO3 43.0 mmol/L (22-26) H 08/21/21 16:37 ABG Base Excess 16.6 mmol/L (-2.0-2.0) H 08/21/21 16:37 Flavio Test N/a 08/21/21 16:37 Hematocrit 26.0 % (42-52) L 08/21/21 16:37 O2 Delivery Device Nrb 08/21/21 16:37 O2 Liters/Min 15.0 % 08/21/21 16:37 FiO2 100.0 % 08/21/21 16:37 Dried Fruit Washer ID Ed 08/21/21 16:37 Sodium 143 mmol/L (136-145) 08/21/21 16:00 Potassium 3.1 mmol/L (3.5-5.1) L 08/21/21 16:00 Chloride 97 mmol/L (98-107) L 08/21/21 16:00 Carbon Dioxide 43 mmol/L (22-29) H* 08/21/21 16:00 Anion Gap 6.1 (5-19) 08/21/21 16:00 BUN 11 mg/dL (8-23) 08/21/21 16:00 Creatinine 0.5 mg/dL (0.7-1.2) L 08/21/21 16:00 GFR Calculation 165.4 mL/min (90-130) H 08/21/21 16:00 Glucose 93 mg/dL (65-115) 08/21/21 16:00 Calculated Osmolality 295 mOsm/kg (285-295) 08/21/21 16:00 Lactic Acid 1.2 mmol/L (0.5-2.2) 08/21/21 16:00 Calcium 11.1 mg/dL (8.5-10.5) H 08/21/21 16:00 Total Bilirubin 0.4 mg/dL (0.15-1.2) 08/21/21 16:00 AST 15 U/L (0-40) 08/21/21 16:00 ALT 11 U/L (0-41) 08/21/21 16:00 Alkaline Phosphatase 64 IU/L (40-130) 08/21/21 16:00 C-Reactive Protein 140.8 mg/L (0.0-4.9) H 08/21/21 16:00 Total Protein 6.6 g/dL (6.6-8.7) 08/21/21 16:00 Albumin 2.6 g/dL (3.5-5.2) L 08/21/21 16:00 Globulin 4.0 g/dL (1.3-4.6) 08/21/21 16:00 Procalcitonin 0.12 ng/mL (0-0.5) 08/21/21 16:00 TSH 3.55 uIU/mL (0.27-4.20) 08/21/21 16:00 Urine Color Yellow (Yellow) 08/21/21 15:45 Urine Appearance Clear (CLEAR) 08/21/21 15:45 Urine pH 8 (5-7) H 08/21/21 15:45 Ur Specific [place] 1.010 (1.005-1.030) 08/21/21 15:45 Urine Protein Neg (Negative) 08/21/21 15:45 Urine Glucose (UA) Norm (Normal) 08/21/21 15:45 Urine Ketones Negative (Negative) 08/21/21 15:45 Urine Blood Neg (Negative) 08/21/21 15:45 Urine Nitrate Negative (Negative) 08/21/21 15:45 Urine Bilirubin Neg (Negative) 08/21/21 15:45 Prot Sulfosalicylic Acd Negative (Negative) 08/21/21 15:45 Urine Urobilinogen Norm mg/dL (Negative) 08/21/21 15:45 Ur Leukocyte Esterase Negative (Negative) 08/21/21 15:45 Urine RBC 0-4 /hpf (0-2) H 08/21/21 15:45 Urine WBC 0-4 /hpf (0-5) H 08/21/21 15:45 Ur Squamous Epith Cells 0-4 /hpf (0-5) H 08/21/21 15:45 Amorphous Sediment 2+ /hpf 08/21/21 15:45 Urine Bacteria Trace /hpf (NONE) 08/21/21 15:45 Critical Care Time Critical Care Time: Critical Care Time: Yes Total Critical Care Time: 50 Attestation: Due to a high probability of clinically significant, possibly life threatening deterioration, the patient required my highest level of attention and preparedness to intervene emergently and I personally spent this critical care time directly and personally managing the patient. This critical care time included obtaining a history; examining the patient; pulse oximetry; ordering and review of laboratory and imaging studies; arranging urgent treatment with development of a management plan; evaluation of patient's response to treatment; frequent reassessment; and, discussions with other providers as applicable. It was exclusive of separately billable procedures. Primary system involved is respiratory and oncologic Discharge Plan Discharge Patient Disposition: Placed in Observation Admit Provider: Cely Frankel Clinical Impression: Altered mental status Coding Level of Care Code ED Bale Breaker Operator for Florencio Reza
--- NOTE | 2021-08-21 15:33 | CT_ITS ---
WS: [id number] CT HEAD NONCONTRAST HISTORY: ams, hx cancer TECHNIQUE: Contiguous axial imaging performed through the brain in 2.5 mm imaging. Bone and soft tiss ue windows. Sagittal and coronal reformats reviewed. All CT scans at [facility] use at least one of these dose optimization techniques: automated exposure control; mA and/or kV adjustment per pa tient size (includes targeted exams where dose is matched to clinical indication); or iterative recon struction. DLP: 972.73 mGy.cm COMPARISON: 07/07/[address] No acute intracranial hemorrhage, midline shift or mass effect. Moderate bilateral cerebral atrophy. No prior large territory infarct. No midline shift. Ventricles: Normal size with no hydrocephalus. Patient has a known destructive expansile neoplastic mass centered in the region of the nasopharynx a nd oropharynx. This mass is causing significant destruction and infiltration of the soft tissues of t he sinuses, RIGHT face into the masseter space. There is extension posteriorly to the skull base and into the RIGHT orbital apex. There are soft tissue in the medial RIGHT temporal lobe. This mass also extends across the midline to the LEFT nasopharynx and skull base. Mastoid air cells: Fluid in the mastoid air cells bilaterally. Calvarium and scalp: No skull abnormality. CT/CT head wo con* [id number] IMPRESSION: 1. No acute intracranial hemorrhage. 2. Bilateral cerebral edema. 3. Significant progression of the destructive bone and soft tissue mass center ed in the RIGHT face and nasopharynx since 07/07/2021. Mass now extends across t he midline and is destroying the soft tissues and bones bilaterally with extens ion into the RIGHT middle cranial fossa. Mass was recently described in more de tail on 07/07/2021 but has progressed since that study also.
--- NOTE | 2021-08-21 15:33 | XR_ITS ---
WS: [id number] Portable AP upright chest, 08/21/2021 Clinical Data: cough, ams Comparison: Portable chest, 08/01/2021. Findings: No nodules, masses or effusions are seen. The heart is normal. The pulmonary vascularity is not increased. No pneumonia or pneumothorax is seen. The aortic arch and descending thoracic aorta s how calcification and tortuosity. The pleural effusions have cleared. There is no longer free air ximena eath the diaphragms. The right Port-A-Cath remains in the same position. There is a gastric tube in t he stomach. XR/XR chest 1V portable [id number] Impression: 1. Clearing of bilateral pleural effusions. 2. Atherosclerosis.
[2021-08-21 16:20] LABS: Basophils % 0.3 %; Eosinophils # 0.1 10^3/uL (0.0-0.8); Eosinophils % 0.6 %; Hematocrit 30.5 % (42.0-52.0); Hemoglobin 9.7 g/dL (11.7-16.6); Lymphocytes # 0.5 10^3/uL (0.8-4.8); Mean Corpuscular HGB Conc 31.8 g/dL (30.0-36.0); Mean Corpuscular Hemoglobin 32.7 pg (28.0-34.0); Mean Corpuscular Volume 102.7 fl (80-94); Mean Platelet Volume 9.5 fL (7.4-10.4); Monocytes # 1.1 10^3/uL (0.2-0.9); Monocytes % 8.8 %; Neutrophils # 10.88 10^3/uL (1.8-7.7); Neutrophils % 85.9 %; Nucleated Red Blood Cells % 0 %; Platelet Count 397 10^3/cmm (130-400); Red Blood Count 2.97 10^6/uL (4.1-5.3); Red Cell Distribution Width 13.2 % (12.1-15.1); White Blood Count 12.7 10^3/uL (4.0-10.0)
[2021-08-21 16:44] LABS: Add Urine Culture? No; Add Urine Microscopic? YES; Amorphous Sediment Urine 2+ /hpf; Bacteria Urine TRACE /hpf; Bilirubin Urine Neg (Negative); Blood Urine Neg (Negative); Glucose Urine UA Norm (Normal); Ketones Urine Negative (Negative); Leukocyte Esterase Urine Negative (Negative); Nitrate Urine Negative (Negative); Protein Urine Neg (Negative); RBC Urine 0-4 /hpf (0-2); Squamous Epithelial Cell Urine 0-4 /hpf (0-5); Sulfosalicylic Acid Urine Negative (Negative); Urine Appearance Clear (CLEAR); Urine Color Yellow (Yellow); Urobilinogen Urine Norm (Negative); WBC Urine 0-4 /hpf (0-5); pH Urine 8 (5-7)
[2021-08-21 16:49] LABS: ABG PCO2 64.7 mmHg (35-45); ABG PH Result 7.43 (7.35-7.45); Base Excess ABG 16.6 mmol/L (-2.0-2.0); Blood Gas Operator Identificat ED; Blood Gas Sample Site Brachial, left; Blood Gas Sample Type Arterial; Oxygen Device NRB
[2021-08-21] MEDS: dexamethasone 10 mg/mL INJ IVP (16:55)
[2021-08-21 17:02] LABS: Alanine Aminotransferase 11 U/L (0-41); Albumin Level 2.6 g/dL (3.5-5.2); Alkaline Phosphatase 64 IU/L (40-130); Anion Gap 6.1 (5-19); Aspartate Amino Transferase 15 U/L (0-40); Blood Urea Nitrogen 11 mg/dL (8-23); C Reactive Protein 140.8 mg/L (0.0-4.9); Calcium 11.1 mg/dL (8.5-10.5); Chloride 97 mmol/L (98-107); Glomerular Filtration Rate 165.4 mL/min (90-130); Glucose 93 mg/dL (65-115); Osmolality Calculated 295 mOsm/kg (285-295); Potassium 3.1 mmol/L (3.5-5.1); Sodium 143 mmol/L (136-145); Total Bilirubin 0.4 mg/dL (0.15-1.2); Total Protein 6.6 g/dL (6.6-8.7)
[2021-08-21 17:03] LABS: Lactic Sepsis W/Reflex 1.2 mmol/L (0.5-2.2)
[2021-08-21 17:08] LABS: Carbon Dioxide 43 mmol/L (22-29)
[2021-08-21 17:09] LABS: Procalcitonin 0.12 ng/mL (0-0.5)
[2021-08-21] MEDS: potassium chloride oral liq 20 mEq/15 mL UDC 40 MEQ PEG-TUBE (17:40)
--- NOTE | 2021-08-21 18:37 | P.HP_ITS ---
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 Patient is overall in poor health and has not initiated chemotherapy yet. Over the last few days he has a decreased mental status and responsiveness as well as generalized weakness. He also has a cough. He was found to be hypoxemic on room air and supplemental oxygen was started by EMS and patient was brought to the ER. is present at bedside. states that nothing much has changed since the last admission at home. Initially they wanted the patient to be a full code but now would like him to be a DNR DNI due to evidence of cerebral edema and results of CAT scan showing that the cancer has worsened. I also spoke to patient's son over the phone who agreed with the plan. Patient is unable to give me any type of history due to a mass in his nasopharynx extending into his mouth. He also appears confused and unable to answer many questions. and son both state that patient has had altered mental status at home and has been acting not like himself. Review of systems negative except as noted in HPI. Review of systems were obtained from the . Patient unable to provide any history. ED course: Blood pressure 139/72, respiratory 18, pulse 93, pulse ox 100% on 2 L nasal cannula. Head CT done showed significant progression of destructive bone and soft tissue mass centered in right face and nasopharynx since 07/07/2021. Last night extends across midline and is destroying soft tissues and bones bilaterally with extension into right middle cranial fossa. Bilateral cerebral edema present. Chest x-ray shows clearing of bilateral pleural effusions. Medications/Allergies Home Medications Medication Instructions Recorded Confirmed Last Taken Type aspirin 81 mg tablet,delayed 81 mg PO DAILY 07/14/20 08/21/21 08/21/21 History release nitroglycerin 0.4 mg sublingual 0.4 mg SUBLINGUAL Q5M PRN #30 tab 07/14/20 08/21/21 08/06/21 Rx tablet tramadol 50 mg tablet 50 mg PO Q6H PRN 07/14/20 08/21/2108/20/22 History cilostazol 50 mg tablet 50 mg PO BID #180 tab 02/27/21 08/21/21 08/21/21 Rx pravastatin 10 mg tablet 10 mg PO DAILY #90 tab 02/27/21 08/21/21 08/20/21 Rx folic acid 1 mg tablet 1 mg FEEDING TUBE DAILY 30 Days 08/03/21 08/21/21 0 08/21/21 Rx #30 tab magnesium L-lactate 84 mg 84 mg PO DAILY 30 Days #30 tab 08/03/21 08/21/21 08/20/21 Rx tablet,extended release (Magtab) multivitamin with folic acid 400 1 tab PO DAILY 30 Days #30 tab 08/03/21 08/21/21 08/20/21 Rx mcg tablet (Thera) sodium di- and 1 tab PO DAILY 30 Days #30 tab 08/03/21 08/21/21 08/21/21 Rx monophosphate-potassium phos monobasic 250 mg tablet (Phosphorous) sotalol 80 mg tablet 80 mg PO BID@0900,2100 30 Days #60 08/03/21 08/21/21 08/21/21 Rx tab sucralfate 1 gram tablet 1 g PO AC&BEDTIME 30 Days #60 tab 08/03/21 08/21/21 08/20/21 Rx thiamine mononitrate (vit B1) 100 100 mg FEEDING TUBE DAILY 30 Days 08/03/21 08/21/21 08/21/21 Rx mg tablet (Vitamin B-1 #30 tab (mononitrate)) trazodone 50 mg tablet 25 mg FEEDING TUBE BEDTIME 30 Days 08/03/21 08/21/21 08/20/21 Rx #30 tab potassium chloride 20 mEq/15 mL 20 meq PO DAILY 08/17/21 08/21/21 Unknown History oral liquid prednisone 20 mg tablet 20 mg PO DAILY 08/21/21 08/21/21 Unknown History Allergies Allergy/AdvReac Type Severity Reaction Status Date / Time No Known Allergies Allergy Verified 08/07/21 10:30 PFSH Acute PFSH: Medical History (Updated 08/21/21 @ 17:50 by Jeff Schaefer MD) Atrial fibrillation CAD (coronary artery disease) COPD (chronic obstructive pulmonary disease) CVA (cerebral vascular accident) Hypertension Peripheral arterial disease Surgical History H/O carpal tunnel repair Port-A-Cath in place (07/26/21) S/P percutaneous endoscopic gastrostomy (PEG) tube placement (~07/26/21) new tube - 08/07/2021 Family History Mother Old age Father Accidental Other Unknown family medical history Social History Smoking and tobacco status: current every day smoker (1-3 cigs) cigarettes [ Other cigarette details: 1-3 cig a day] Alcohol intake: current Alcohol intake frequency: 0-2 Drinks per Day Alcohol type: hard liquor Desire information about substance/drug rehabilitation?: No Counseling given: No Vitals/I&O/Wt Last Vital Signs Pulse 93 08/21/21 17:46 Resp 18 08/21/21 17:46 BP 139/72 08/21/21 17:46 Pulse Ox 100 08/21/21 17:46 Physical Exam Narrative: General: Alert. Unsure of orientation. Patient unable to provide any history. Does not seem to follow many commands either. Altered. Extremely cachectic frail-appearing male appearing older than stated age laying in bed on his side. Nasal cannula in his mouth. Large mass can be seen extending into the soft palate as patient opens his mouth. Temporal wasting present. Ribs can be seen due to extreme malnourishment. Continues to fidget in bed. Does not complain of any pain at this time. HEENT: Normocephalic, atraumatic, right eye closed, left eye extraocular movements intact. Breathing 2 L nasal cannula through his mouth. Cardio: Regular rate, normal S1-S2, no gross murmurs. Respiratory: Fair bilateral air entry, with mild crackles at right base. Unable to do a proper assessment due to patient's position and rotation in bed. GI: Abdomen soft, nontender, severe malnourishment, PEG tube in place. PEG tube site does not appear infected. Extremities: No lower extremity edema or cyanosis. Skin has tiny petechiae at upper arm tricep area Data : 08/21/21 16:00 08/21/21 16:00 Micro: Microbiology 08/21/21 16:48 Blood Culture - Preliminary Blood SPECIMEN COLLECTED 08/21/21 16:46 Blood Culture - Preliminary Blood SPECIMEN COLLECTED A&P Assessment and plan (1) Altered mental status: Status: Acute (2) Atrial fibrillation: Status: Acute (3) COPD (chronic obstructive pulmonary disease): Status: Acute (4) Hypertension: Status: Acute (5) Peripheral arterial disease: Status: Acute (6) S/P percutaneous endoscopic gastrostomy (PEG) tube placement: Status: Acute (7) Port-A-Cath in place: Status: Acute (8) Physical deconditioning: Status: Acute (9) Protein calorie malnutrition: Status: Acute (10) Lesion of soft palate: Status: Acute Plan #Squamous cell carcinoma of nasopharynx #Bilateral cerebral edema #Acute hypoxia requiring supplemental oxygen #Acute on chronic COPD #History of atrial fibrillation on sotalol #History of PAD #History of hypertension #History of CVA #History of CAD with no known PCI -Patient has a multitude of medical issues at this time with stage IV nasopharyngeal squamous cell carcinoma. Patient's family would like to pursue hospice at this point in light of new CT scan findings which show cancer worsening and bilateral cerebral edema. ? He was given dexamethasone 10 IV x1 in ER. ? We will treat him for COPD exacerbation at this time for which agrees to. Azithromycin for 5 days and Solu-Medrol 40 daily for 5 days. We will give him a short course of steroids as well at discharge. ? We will check for urine culture and treat for UTI if positive. ? Hospice referral is placed. Patient's is okay with IV fluids and antibiotics and conservative management at this time. They do not want to make him comfort care completely but would like to go with hospice to focus on quality of life. ? Patient's son and both state that they would like patient to be DNR/DNI at this time. Patient is unable to make his own decisions as he is altered at this time. DNR/DNI Attestations Medical Necessity Statement*: Observation overnight for possible COPD exacerbation. Hospice to see in a.m. and to decide discharge disposition. Coding Level of Care Code Acute Gum Rolling Machine Tender for Florencio Reza Diagnoses Altered mental status R41.82 Atrial fibrillation I48.91 COPD (chronic obstructive pulmonary disease) J44.9 Hypertension I10 Peripheral arterial disease I73.9 S/P percutaneous endoscopic gastrostomy (PEG) tube placement Z93.1 Port-A-Cath in place Z95.828 Physical deconditioning R53.81 Protein calorie malnutrition E46 Lesion of soft palate K13.79
[2021-08-21 19:05] LABS: Thyroid Stimulating Hormone 3.55 uIU/mL (0.27-4.20)
[2021-08-21] MEDS: azithromycin 500 MG in sodium chloride 0.9% 250 ML 250 MG IV (20:22)
[2021-08-21] MEDS: sotalol 80 mg Tablet PO (22:19)
[2021-08-21] MEDS: trazodone 50 mg Tablet 25 MG PEG-TUBE (22:20)
[2021-08-21] MEDS: sucralfate 1 gm Tablet PO (22:20)
[2021-08-21] MEDS: enoxaparin 40 mg/0.4 mL Syringe SUBCUT (22:20)
[2021-08-22] VITALS: BP 129/72; PULSE 69; RESP 16; TEMP 36.6; O2SAT 92
--- NOTE | 2021-08-22 02:10 | PC.NURSE ---
Addendum entered by Laurie Wilkinson RN 08/22/21 04:29: Attempted also to get a blood pressure reading manually, was unable to get a reading due to patient declining. Original Note: Called Dr Pantoja, concerning patient decline at this point, Patient O2 sats in 50's, patient having agonal breathing and mottling, respiratory at bedside, non rebreather mask applied, she will attempt to come see the patient and as soon as possible.
--- NOTE | 2021-08-22 03:31 | PC.NURSE ---
Patient passed at 0314, verified with DEIRDRE David. at bedside. Dr. Pantoja notified by phone. supervisor brew house notified, who will call [facility].
--- NOTE | 2021-08-22 03:38 | PC.NURSE ---
[facility] contact - pt is not a candidate for [facility] donation. [facility] will forward information to [facility].
--- NOTE | 2021-08-22 06:07 | PC.NURSE ---
[facility] released body - not candidate for donation.
--- NOTE | 2021-08-22 07:11 | PC.NURSE ---
home came to get the patient, at 0707 this morning.
[2021-08-22 07:12] VITALS: PULSE 0
--- NOTE | 2021-08-22 08:11 | P.DES_ITS ---
Discharge Providers DDS Date of Admission: 08/21/21 17:50 Date Summary Completed: 08/22/21 Attending Provider at Admission: Cely Frankel MD Attending Provider at Discharge: Licha Pantoja MD Pronouncing Clinician: Ivy Pantoja Primary Care Provider: Estela VIRK Diagnoses Hospital Diagnoses (1) Altered mental status: (2) Atrial fibrillation: (3) COPD (chronic obstructive pulmonary disease): (4) Hypertension: (5) Peripheral arterial disease: (6) S/P percutaneous endoscopic gastrostomy (PEG) tube placement: Permanent Problem Comments: new tube - 08/07/2021 (7) Port-A-Cath in place: (8) Physical deconditioning: (9) Protein calorie malnutrition: (10) Lesion of soft palate: (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 Patient is overall in poor health and has not initiated chemotherapy yet.? Over the last few days he has a decreased mental status and responsiveness as well as generalized weakness.? He also has a c ough.? He was found to be hypoxemic on room air and supplemental oxygen was started by EMS and patient was brought to the ER.? is present at bedside.? states that nothing much has changed since the last admission at home.? Initially they wanted the patient to be a full code but now would like him to be a DNR DNI due to evidence of cerebral edema and results of CAT scan showing that the cancer has worsened.? I also spoke to patient's son over the phone who agreed with the plan.? Patient is unable to give me any type of history due to a mass in his nasopharynx extending into his mouth.? He also appears confused and unable to answer many questions.? and son both state that patient has had altered mental status at home and has been acting not like himself.? Review of systems negative except as noted in HPI.? Review of systems were obtained from the .? Patient unable to provide any history. ED course: Blood pressure 139/72, respiratory 18, pulse 93, pulse ox 100% on 2 L nasal cannula.? Head CT done showed significant progression of destructive bone and soft tissue mass centered in right face and nasopharynx since 07/07/2021.? Last night extends across midline and is destroying soft tissues and bones bilaterally with extension into right middle cranial fossa.? Bilateral cerebral edema present.? Chest x-ray shows clearing of bilateral pleural effusions. Summary Summary Summary: Patient was admitted for hypoxia noticed at home. Patient's stated that he keeps taking his oxygen off. She stated that they called EMS and patient was placed on oxygen and brought to the hospital. In the ER CAT scan was repeated which showed significant worsening of his nasopharyngeal carcinoma. There was also evidence of cerebral edema present he was placed on IV dexamethasone.. Patient was also having a cough most likely due to repeated aspiration due to his secretions vs a copd flare. However he was maintaining saturation 93 to 94% on his 2 L nasal cannula. Family requested for hospice services. Patient was admitted and was going to be treated for COPD exacerbation with antibiotics. Hospice referral was placed. Family did not want aggressive measures. Patient was DNR/DNI. Overnight patient suddenly became hypoxic as per reports from overnight hospitalist. There is a suspicion he may have aspirated a significant amount of his secretions. Patient . was present at bedside. Additional Data Advance directives?: Yes Discharge Plan Discharge Patient Disposition: Condition: DS Attestations Time Spent in /Discharge Care*: greater than 30 min Quality - AMI: AMI present?: No Quality - Stroke: CVA present?: No Quality - VTE: VTE present?: No Coding Level of Care Code Acute [facility] for [facility] Fwd Diagnoses Altered mental status R41.82 Atrial fibrillation I48.91 COPD (chronic obstructive pulmonary disease) J44.9 Hypertension I10 Peripheral arterial disease I73.9 S/P percutaneous endoscopic gastrostomy (PEG) tube placement Z93.1 Port-A-Cath in place Z95.828 Physical deconditioning R53.81 Protein calorie malnutrition E46 Lesion of soft palate K13.79 Malignant neoplasm nasopharynx C11.9 Nasopharyngeal carcinoma C11.9 Carcinoma of nasopharyngeal (posterior) (superior) surface of soft palate C11.3 Hypoxia R09.02 Aspiration into airway T17.908A
== END 2021-08-22 07:13 | disposition expired ==
LOC: ER 18:44 → MEDSURG 18:50
PROVIDERS: Admitting Provider Internal Medicine; Emergency Provider Emergency Medicine; PCP Nurse Practitioner Family; Visit Provider Internal Medicine
DX: R41.82 Altered mental status, unspecified (principal); I48.91 Unspecified atrial fibrillation; J44.9 Chronic obstructive pulmonary disease, unspecified; I10 Essential (primary) hypertension; I73.9 Peripheral vascular disease, unspecified; Z93.1 Gastrostomy status; Z95.828 Presence of other vascular implants and grafts; R53.81 Other malaise; E46 Unspecified protein-calorie malnutrition; Z68.1 Body mass index [BMI] 19.9 or less, adult; K13.79 Other lesions of oral mucosa; C11.9 Malignant neoplasm of nasopharynx, unspecified; C11.3 Malignant neoplasm of anterior wall of nasopharynx; R09.02 Hypoxemia; T17.908A Unspecified foreign body in respiratory tract, part unspecified causing other injury, initial encounter; I25.10 Atherosclerotic heart disease of native coronary artery without angina pectoris; Z86.73 Personal history of transient ischemic attack (TIA), and cerebral infarction without residual deficits; F17.210 Nicotine dependence, cigarettes, uncomplicated; Z66 Do not resuscitate
CPT/HCPCS: 36600; 70450; 71045; 80053; 81001; 82803; 83605; 84145; 84443; 85025; 86140; 87040; 94664; 96365; 96372; 96375; 99285; G0378; J0456; J1100; J1650; J7050